=== PATIENT | female | born 1955 | race Caucasian/White ===

== ENCOUNTER 2020-06-03 09:19 | Outpatient (RCR) | payer MEDICARE, BC, MEDICAID, SELFPAY ==
[2020-06-03 09:28] VITALS: BP 133/70; PULSE 73; TEMP 36.1; BMI 44.6
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
== END 2020-06-12 23:59 ==
LOC: WC 09:19
PROVIDERS: PCP Internal Medicine; Visit Provider Nurse Practitioner
DX: L89.154 Pressure ulcer of sacral region, stage 4 (principal); E66.01 Morbid (severe) obesity due to excess calories; L03.319 Cellulitis of trunk, unspecified; S41.102A Unspecified open wound of left upper arm, initial encounter; T14.8XXA Other injury of unspecified body region, initial encounter; Z68.44 Body mass index [BMI] 60.0-69.9, adult; Z79.84 Long term (current) use of oral hypoglycemic drugs; Z79.899 Other long term (current) drug therapy
CPT/HCPCS: 11042; 99203; G0463

== ENCOUNTER 2020-06-15 07:50 | Outpatient (RCR) | payer MEDICARE, MEDICAID, SELFPAY ==
[2020-06-13 00:54] VITALS: BP 133/70; PULSE 73; TEMP 36.1
== END 2020-07-13 23:59 ==
LOC: WC 07:50
PROVIDERS: PCP Internal Medicine; Visit Provider Nurse Practitioner
DX: Z00.00 Encounter for general adult medical examination without abnormal findings (principal)

== ENCOUNTER 2020-09-02 10:30 | Outpatient (RCR) | payer MEDICARE, BC, MEDICAID, SELFPAY ==
[2020-07-14 00:34] VITALS: BP 133/70; PULSE 73; TEMP 36.1
[2020-07-20 10:47] VITALS: BP 146/54; PULSE 69; TEMP 36.2; BMI 44.6
--- NOTE | 2020-07-20 15:47 | HP.PCM_ITS ---
History of Present Illness Date of Service: 07/20/20 Chief Complaint: WOUND CENTER CONSULT Right sacral pressure sore, Stage IV. REFERRING PROVIDER: Bel Deal NP. STRESS ANALYST: Dr. Miller. History of Wound: 65-year-old white obese nonambulatory female with a history of diabetes mellitus came to the W[facility] Center because of a right sacral pressure sore. She developed the pressure sore when she fell last year and was not found for almost 20 hours. She had laid on her back and her legs were caught underneath her body. She developed a gangrene left heel that is now healed but has not walked since. Has developed neuropathies and drop foot. Wound care is with Hydrofera Blue. This is keeping the pressure sore clean and no odor. Today she denies fever. Her appetite is ok. Encourage nutritional supplementation with protein to help the healing process. I was asked to evaluate this patient for surgical options for treatment. Progress of Wound: Slight improvement. [facility] Medical History Diabetes Home Medications Lactobacillus acidophilus 1 capsule PO BID 06/03/20 [History Last Taken Unknown] acetaminophen 650 mg PO Q4H PRN PRN 06/03/20 [History Last Taken Unknown] ascorbic acid (vitamin C) 500 mg PO BID 06/03/20 [History Last Taken Unknown] byndqgn-tlcwolrdfkpzy-myyakksw 2 tablet PO BID PRN 06/03/20 [History Last Taken Unknown] atenolol 50 mg PO DAILY 06/03/20 [History Last Taken Unknown] atorvastatin 40 mg PO DAILY 06/03/20 [History Last Taken Unknown] bisacodyl 10 mg RECTAL DAILY PRN PRN 06/03/20 [History Last Taken Unknown] cyclobenzaprine 5 mg PO DAILY 06/03/20 [History Last Taken Unknown] diphenhydramine HCl 25 mg PO Q6H PRN 06/03/20 [History Last Taken Unknown] docusate sodium 100 mg PO DAILY 06/03/20 [History Last Taken Unknown] ergocalciferol (vitamin D2) 50,000 unit PO FR 06/03/20 [History Last Taken Unknown] famotidine 20 mg PO BID 06/03/20 [History Last Taken Unknown] ferrous sulfate 325 mg PO BIDCM 06/03/20 [History Last Taken Unknown] furosemide 40 mg PO DAILY 06/03/20 [History Last Taken Unknown] gabapentin 600 mg PO TID 06/03/20 [History Last Taken Unknown] loperamide 2 mg PO DAILY PRN 06/03/20 [History Last Taken Unknown] magnesium hydroxide 30 ml PO DAILY PRN PRN 06/03/20 [History Last Taken Unknown] meclizine 25 mg PO Q12H PRN 06/03/20 [History Last Taken Unknown] metformin 500 mg PO DAILY 06/03/20 [History Last Taken Unknown] ondansetron 4 mg PO Q8H PRN PRN 06/03/20 [History Last Taken Unknown] oxycodone 5 mg PO Q6H PRN PRN 06/03/20 [History Last Taken Unknown] polyethylene glycol 3350 17 gm PO DAILY 06/03/20 [History Last Taken Unknown] potassium chloride 20 meq PO TID 06/03/20 [History Last Taken Unknown] sertraline 150 mg PO DAILY 06/03/20 [History Last Taken Unknown] Allergy/AdvReac Type Severity Reaction Status Date / Time doxycycline Allergy PT UNSURE Verified 06/03/20 10:08 OF REACTION ROS ROS Narrative Constitutional: Denies: Chills, Fever Eyes: Denies: Blurred vision, Drainage, Pain HEENT: Denies: Difficulty Hearing, Difficulty Swallowing, Sore Throat, Visual Changes Cardiovascular: Denies: Chest Pain, Palpitations, Syncope Respiratory: Denies: Cough, Shortness of Breath Gastrointestinal: Denies: Abdominal Pain, Nausea, Vomiting Genitourinary: Denies: Dysuria, Frequency Musculoskeletal: Denies: Joint Pain, Muscle pain Skin: Reports: Wounds. Denies: Jaundice, Rash Neurological: Denies: Balance problems, Change in Speech, Difficulty swallowing, Focal weakness Psychiatric: Denies: Anxiety, Depression Endocrine: Denies: Change in Body Habitus Hematologic/ Lymphatic: Denies: Adenopathy Vital Signs Vital Signs Vital Signs: 07/20/20 10:47 Temperature 97.2 F L Temperature Source Temporal Pulse Rate 69 Blood Pressure 146/54 H Blood Pressure Mean 84 Blood Pressure Source Monitor Blood Pressure Position Semi-Fowlers Blood Pressure Location Right Arm Weight Weight: 281 lb Body Mass Index (BMI) 44.6 Physical Exam Narrative General: Oriented x3, Cooperative. HEENT: PERRLA, EOMI. Oral: Moist Mucosa Neck: Supple, Nontender. No cervical adenopathy. Lungs: Clear to auscultation. Cardiovascular: Regular rate, Regular Rhythm. Abdomen: Soft, Nondistended. Extremities: No clubbing, No edema. Skin: There is a right sacral pressure sore extending into the muscle, making it a Stage IV. No exposed bone is seen. Some granulation tissue is seen. No purulent drainage. Lymphatic: No Cervical, axillary, or Inguinal Adenopathy Neurological: Cranial nerves II-XII grossly intact. Psych/Mental Status: Normal Affect, Appropriate. Debridement Note Debridement Note Post-Debridement Measurements and Additional Note: Post-Debridement Measurements/Treatment - Nurse 1 - General Ulcer Assessment Start: 07/20/20 10:47 Freq: Status: Active Protocol: GERARDO Activity Type Activity Date Activity User E-Sign Co-Sign Detail Recorded Client Recorded Date Recorded By Document 07/20/20 10:47 CHALO [id number] 07/20/20 10:49 CHALO 07/20/20 10:47 - Today's Visit Information Type of service Follow-up Visit (Physician/JOURNEYMAN MACHINIST ) Arrival Mode Stretcher Transfer Assistance Manual Patient Identification Verified (Name & Yes ) Height and Weight Body Mass Index (BMI) 44.6 BMI Classification Obese Vital Signs Temperature (97.8 F-99.1 F) 97.2 F L Temperature Source Temporal Pulse Rate (60-100) 69 Pulse Location Monitor Blood Pressure (90/60-120/80) 146/54 H Blood Pressure Mean 84 Source Monitor Position Semi-Fowlers Blood Pressure Location Right Arm History Since Last Visit- (Skip if this is Patient's initial visit) Have you changed medications since your No last visit? Any new allergies or adverse reactions No Had a fall/change in ADL's that may No increase risk of falls Signs or symptoms of abuse and/or No neglect since last visit Have you been in the hospital since your No last visit? Has dressing in place as prescribed Yes Has compression in place as prescribed N/A Has offloadiing in place as prescribed N/A Experienced any changes in pain level or No management Left Footwear Regular Shoe Right Footwear Regular Shoe Pain Scale: 0-10 Numeric Is Patient Pain Free? Yes - Nurse 1 - General Ulcer Measurement Start: 07/20/20 10:47 Freq: Status: Active Protocol: Activity Type Activity Date Activity User E-Sign Co-Sign Detail Recorded Client Recorded Date Recorded By Document 07/20/20 10:47 CHALO [id number] 07/20/20 10:49 CHALO 07/20/20 10:47 Wound Center Nurse 1 #1 Right Buttock/Sacral -Current Size (cm) - Length 4.5 -Current Size (cm) - Width 8.2 -Current Size (cm) - Depth 4.7 -Total Square Cm 36.90 -Exudate Amt Medium -Exudate Type Serosanguineous -Wound Margin Distinct, Outline Attached -Granulation Amt Medium (34-66%) -Granulation Quality Red -Necrosis Amt Medium (34-66%) -Necrotic Tissue Type Adherent Slough -Texture ([place]-wound Skin Appearance) Assessed, Scarring -Moisture ([place]-wound Skin Appearance) No Abnormality, Assessed -Color ([place]-wound Skin Appearance) No Abnormality, Assessed -Temperature ([place]-wound Skin No Abnormality Appearance) (Pt Warm) -Tenderness on Palpation ([place]-wound No Skin Appearance) -Ulcer Cleansing Rinsed/ Irrigated with Saline -Foul Odor after Cleansing No -Anesthetic Used 4% Lidocaine Solution WC - Nurse 2 - General Ulcer CM Notes Start: 07/20/20 10:47 Freq: Status: Active Protocol: Activity Type Activity Date Activity User E-Sign Co-Sign Detail Recorded Client Recorded Date Recorded By Document 07/20/20 11:25 EHSAN [id number] 07/20/20 11:28 EHSAN 07/20/20 11:25 Wound Center Nurse 2 #3 mid abd -Correct Patient No -Correct Side, Site, Position No -Correct Procedure No -Procedure Performed No #2 LEFT ANTECUBITAL -Correct Patient No -Correct Side, Site, Position No -Correct Procedure No -Procedure Performed No #1 Right Buttock/Sacral -Time 11:26 -Correct Patient Yes -Correct Side, Site, Position Yes -Correct Procedure Yes -Procedure Performed Yes -Type of Procedure Debridement -Clinical Debridement Muscle / Fascia -Tissue Removed Muscle,Fascia -Post Debridement (cm) - Length 4.5 -Post Debridement (cm) - Width 8.3 -Post Debridement (cm) - Depth 4.8 -Total Square (Post) (cm) 37.35 -Area of Debridement (cm) - Length 4.5 -Area of Debridement (cm) - Width 8.3 -Total Square (Area) (cm) 37.35 -Tunneling No -Undermining/Tunneling No -Circular Undermining No -Wound/Ulcer Outcome Not Healed -Ulcer Cleansing Rinsed/ Irrigated with Saline -Foul Odor after Cleansing No -Bioengineered Tissue No -Bleeding Controlled with Pressure -Offloading No -Treatment Response Procedure Tolerated Well -Debridement - Muscle / Fascia, 1st Yes 20sq cm -Debridement, Muscle/Fascia, ea addt'l 1 20sq cm or part thereof Pain Scale: 0-10 Numeric Is Patient Pain Free? Yes WC - Nurse 3 - General Ulcer D/C NN Start: 07/20/20 10:47 Freq: Status: Active Protocol: Activity Type Activity Date Activity User E-Sign Co-Sign Detail Recorded Client Recorded Date Recorded By Document 07/20/20 11:55 [facility] [id number] 07/20/20 11:57 [facility] 07/20/20 11:55 Wound Care Nurse 3 #1 Right Buttock/Sacral -Ulcer Cleansing Rinsed/ Irrigated with Saline -Foul Odor after Cleansing No -Primary Dressing Applied Other -Other Dressing moist to dry -Primary Dressing Covered/Secured with Secured with Tape,Other -Other Covering abd Treatment Response Procedure Tolerated Well Pain Scale: 0-10 Numeric Is Patient Pain Free? Yes WC - Visit Discharge Discharge Condition Stable Ambulatory Status Stretcher Transportation Amb[facility] Facility [facility] Wound debrided: #1 Right sacral area. Laterality: Right Wound Grade/Stage: IV. Type of Debridement: Excisional debridement Anesthesia Used: 4% Lidocaine Solution Depth: Down to and including healthy tissue, in the subcutaneous layer and to muscle Percentage of wound debrided: 100 Instrument Used: 7mm curette Tissue Removed: subcutaneous tissue and muscle. Severity: Fat Layer Exposed (muscle is exposed.) Amount of bleeding with debridement: Mild Bleeding Controlled with: Pressure and Compression and gauze Patient tolerated procedure: Patient tolerated procedure well Charges/Coding Visit Charges Office Visits / Consults: 10157 OV L5 New (-25 Modifier ICD-10 - L89.154, E11.9, E66.01) Procedures Integumentary [id number]: [id number] Liz musc/fascia 20 sq cm/< (ICD-10 - L89.154, E11.9, E66.01) Add On Codes: 27322 Liz musc/fascia add-on (ICD-10 - L89.154, E11.9, E66.01) Assessment/Plan Assessment/Plan (1) Sacral decubitus ulcer, stage IV: CODE(S): L89.154 - Pressure ulcer of sacral region, stage 4 (2) Morbid obesity with BMI of 60.0-69.9, adult: CODE(S): E66.01 - Morbid (severe) obesity due to excess calories; Z68.44 - Body mass index [BMI] 60.0-69.9, adult (3) Diabetes: CODE(S): E11.9 - Type 2 diabetes mellitus without complications PLAN: Begin Dakin's dressing changes daily. Recommend operative intervention with excision of the right sacral pressure sore at least into the muscle. If there is tracking down to bone then a partial ostectomy for osteomyelitis would be done. If there is stool contamination during the healing process, then a General Surgery evaluation would be needed for a diverting colostomy. Anticipate increased metabolic demands from the pressure sore. Encourage nutritional supplementation with protein to help the healing process. Will check a Prealbumin at the time of surgery. Surgery will be done under general anesthesia with a surgical observation overnight stay in the hospital. Postoperatively a VAC will be placed. Soft tissue will be sent to Pathology and Microbiology for culture. A positive culture will necessitate antibiotic therapy. If bone is involved and a partial ostectomy is done, then would send to Pathology to evaluate for osteomyelitis and to Microbiology for culture. Also at the time of surgery, a HgbA1c will be checked. Before wound closure can be done with myocutaneous flaps, the HgbA1c needs to be less than 8. Also at the time of the myocutaneous flap, the infection needs to be treated and the nutrition needs to be maximized. After a myocutaneous flap, the patient will need to be on complete bedrest for 6 weeks. Prior to surgery, a CT Pelvis needs to be done to evaluate for osteomyelitis. A wound culture was obtained today. A positive culture will necessitate antibiotic therapy. At the [facility], a specialty bed is needed such as a low air loss bed to minimize pressure issues. Frequent turning is also necessary. Patient was informed of the risks and complications of the procedure including alternatives to surgery. These were discussed with the patient personally. Patient voices understanding and wishes to proceed. Followup Wound Center 2 weeks.
[2020-08-12 10:59] VITALS: BP 144/60; PULSE 74; RESP 16; BMI 44.6
--- NOTE | 2020-08-12 12:10 | CT_ITS ---
STUDY: CT PELVIS WITHOUT CONTRAST REASON FOR EXAM: Female, 65 years old. Pressure ulcer of sacral region, stage 4 RADIATION DOSAGE (If Supplied By Facility): CTDIvol = ( 37.90 ) mGy, DLP = ( 1628.34 ) mGycm TECHNIQUE: Transaxial imaging of the pelvis was performed without oral contrast, and without intravenous administration of contrast material. Individualized dose optimization techniques were used for this CT. COMPARISON: None. FINDINGS: Normal urinary bladder. Normal visualized small intestine. Large amount of stool within the colon suggestive of constipation. There is no pelvic fluid. There is no pelvic mass lesion or lymphadenopathy. Normal visualized pelvic arteries. There is a 4 x 5 cm sacral decubitus ulcer superficial to the right sacral ala and the right sacroiliac joint. There is subtle cortical destruction of the posterior aspect of the right sacral ala consistent with osteomyelitis. CT/Pelvis without IV Contrast IMPRESSION: 4 x 5 cm sacral decubitus ulcer with osteomyelitis of the right sacral ala. Electronically Signed: Po Brown MD at 14:44 EDT Tel , Service support ,
--- NOTE | 2020-08-12 12:42 | PN.PCM_ITS ---
History of Present Illness Date of Service: 08/12/20 Chief Complaint: WOUND CENTER CONSULT Right sacral pressure sore, Stage IV. REFERRING PROVIDER: Bel Deal NP. SURGEON PARTNER: Dr. Miller. History of Wound: 65-year-old white obese nonambulatory female with a history of diabetes mellitus came to the Wound Center because of a right sacral pressure sore. She developed the pressure sore when she fell last year and was not found for almost 20 hours. She had laid on her back and her legs were caught underneath her body. She developed a gangrene left heel that is now healed but has not walked since. Has developed neuropathies and drop foot. Wound care is with Hydrofera Blue. This is keeping the pressure sore clean and no odor. Today she denies fever. Her appetite is ok. Encourage nutritional supplementation with protein to help the healing process. I was asked to evaluate this patient for surgical options for treatment. Progress of Wound: Slight improvement. Have not seen wound since June 2020. Patient is to have CT this afternoon and will be scheduling with Dr. Albarran debridement surgery. Today here for examination and debridement of the wound. Wound is slightly smaller looks good clean does have a very bad odor. Patient is currently on Augmentin being treated by his office. Subjective Subjective Patient was concerned why she was here since she is only can have a CT and have surgery Objective Data Objective Data Discussed with patient that the whole reason for coming here was for continued looking at the wound and making sure there is nothing wrong before she can have surgery debridement and measurements were retaken patient is to continue on same treatment. Vital Signs: Vital Signs Temp Pulse Resp BP 97.2 F L 74 16 144/60 H 07/20/20 10:47 08/12/20 10:59 08/12/20 10:59 08/12/20 10:59 Oxygen Delivery Method Room Air Weight: 281 lb Body Mass Index (BMI) 44.6 Lab / Micro Data Micro: Microbiology 07/20/20 Unknown Wound - Buttock Gram Stain - Final 07/20/20 Unknown Wound - Buttock Wound Culture - Final Streptococcus agalactiae (B) Corynebacterium striatum Staphylococcus capitis 07/20/20 Unknown Wound - Buttock Anaerobic Culture - Final Anaerobic cocci Bacteroides fragilis group Physical Exam Const oriented x3 General Appearance: cooperative Exam Limitations: no limitations Resp normal respiratory effort Effort and Inspection: able to speak in complete sentences Auscultation: clear to auscultation bilaterally Cardio regular rate and regular rhythm Palpation: normal PMI Rate: regular rate Rhythm: regular rhythm Back/Spine Cervical Spine: cervical ROM normal Thoracic Spine / Upper Back: normal to inspection Lumbar Spine / Lower Back: normal to inspection Skin no rashes or lesions noted Neuro oriented x3 Psych Appearance: grossly normal Speech: normal speech Thought Content: normal thought content Judgement: judgement good Debridement Note Debridement Note Post-Debridement Measurements and Additional Note: Post-Debridement Measurements/Treatment - Nurse 1 - General Ulcer Assessment Start: 07/20/20 10:47 Freq: Status: Active Protocol: [employer] Activity Type Activity Date Activity User E-Sign Co-Sign Detail Recorded Client Recorded Date Recorded By Document 07/20/20 10:47 CHALO [id number] 07/20/20 10:49 KR Document 08/12/20 10:59 [facility] [id number] 08/12/20 11:05 [facility] 07/20/20 08/12/20 10:47 10:59 - Today's Visit Information Type of service Follow-up Visit Follow-up Visit (Physician/EMAIL MANAGER (Physician/EMAIL MANAGER ) ) Arrival Mode Stretcher Stretcher Transfer Assistance Manual Manual Transfer Assist (Other) 5 assist Patient Identification Verified (Name & Yes Yes ) Patient Requires Transmission-Based No Precautions Height and Weight Body Mass Index (BMI) 44.6 44.6 BMI Classification Obese Obese Vital Signs Temperature (97.8 F-99.1 F) 97.2 F L Temperature Source Temporal Pulse Rate (60-100) 69 74 Pulse Location Monitor Monitor Respiratory Rate (12-18) 16 Respiratory rate source Observation Oxygen Delivery Method Room Air Blood Pressure (90/60-120/80) 146/54 H 144/60 H Blood Pressure Mean (mm Hg) 84 88 Source Monitor Monitor Position Semi-Fowlers Supine Blood Pressure Location Right Arm History Since Last Visit- (Skip if this is Patient's initial visit) Have you changed medications since your No last visit? Any new allergies or adverse reactions No Had a fall/change in ADL's that may No increase risk of falls Signs or symptoms of abuse and/or No neglect since last visit Have you been in the hospital since your No last visit? Has dressing in place as prescribed Yes Has compression in place as prescribed N/A Has offloadiing in place as prescribed N/A Experienced any changes in pain level or No management Left Footwear Regular Shoe Right Footwear Regular Shoe Pain Scale: 0-10 Numeric Is Patient Pain Free? Yes Yes WC - Nurse 1 - General Ulcer Measurement Start: 07/20/20 10:47 Freq: Status: Active Protocol: Activity Type Activity Date Activity User E-Sign Co-Sign Detail Recorded Client Recorded Date Recorded By Document 07/20/20 10:47 KR [id number] 07/20/20 10:49 KR Document 08/12/20 10:59 [facility] [id number] 08/12/20 11:05 [facility] 07/20/20 08/12/20 10:47 10:59 Wound Center Nurse 1 #3 mid abd -Combined with other wound No -Current Size (cm) - Length 0.1 -Current Size (cm) - Width 0.1 -Current Size (cm) - Depth 0.1 -Total Square Cm 0.01 -Epithelialization Large 67-100% #1 Right Buttock/Sacral -Combined with other wound No -Current Size (cm) - Length 4.5 3 -Current Size (cm) - Width 8.2 9.6 -Current Size (cm) - Depth 4.7 3.7 -Total Square Cm 36.90 28.8 -Photo Taken No -Epithelialization None Present -Tunneling No -Undermining/Tunneling Yes -Undermining/Tunneling Starts (O'clock 12 ) -Undermining/Tunneling Ends (O'clock) 7 -Maximum Distance (cm) 4 -Circular Undermining No -Exudate Amt Medium Large -Exudate Type Serosanguineous Serosanguineous -Wound Margin Distinct, Distinct, Outline Outline Attached Attached -Granulation Amt Medium (34-66%) Large (67-100%) -Granulation Quality Red Red -Necrosis Amt Medium (34-66%) Small (1-33%) -Necrotic Tissue Type Adherent Slough Adherent Slough -Texture (Gaviota-wound Skin Appearance) Assessed, Assessed, Scarring Scarring -Moisture (Gaviota-wound Skin Appearance) No Abnormality, Assessed Assessed -Color (Gaviota-wound Skin Appearance) No Abnormality, Assessed Assessed -Temperature (Gaviota-wound Skin No Abnormality No Abnormality Appearance) (Pt Warm) (Pt Warm) -Tenderness on Palpation (Gaviota-wound No No Skin Appearance) -Ulcer Cleansing Rinsed/ Rinsed/ Irrigated with Irrigated with Saline Saline -Foul Odor after Cleansing No No -Anesthetic Used 4% Lidocaine 4% Lidocaine Solution Solution WC - Nurse 2 - General Ulcer CM Notes Start: 07/20/20 10:47 Freq: Status: Active Protocol: Activity Type Activity Date Activity User E-Sign Co-Sign Detail Recorded Client Recorded Date Recorded By Document 07/20/20 11:25 [id number] 07/20/20 11:28 07/20/20 11:25 Wound Center Nurse 2 #3 mid abd -Correct Patient No -Correct Side, Site, Position No -Correct Procedure No -Procedure Performed No #2 LEFT ANTECUBITAL -Correct Patient No -Correct Side, Site, Position No -Correct Procedure No -Procedure Performed No #1 Right Buttock/Sacral -Time 11:26 -Correct Patient Yes -Correct Side, Site, Position Yes -Correct Procedure Yes -Procedure Performed Yes -Type of Procedure Debridement -Clinical Debridement Muscle / Fascia -Tissue Removed Muscle,Fascia -Post Debridement (cm) - Length 4.5 -Post Debridement (cm) - Width 8.3 -Post Debridement (cm) - Depth 4.8 -Total Square (Post) (cm) 37.35 -Area of Debridement (cm) - Length 4.5 -Area of Debridement (cm) - Width 8.3 -Total Square (Area) (cm) 37.35 -Tunneling No -Undermining/Tunneling No -Circular Undermining No -Wound/Ulcer Outcome Not Healed -Ulcer Cleansing Rinsed/ Irrigated with Saline -Foul Odor after Cleansing No -Bioengineered Tissue No -Bleeding Controlled with Pressure -Offloading No -Treatment Response Procedure Tolerated Well -Debridement - Muscle / Fascia, 1st Yes 20sq cm -Debridement, Muscle/Fascia, ea addt'l 1 20sq cm or part thereof Pain Scale: 0-10 Numeric Is Patient Pain Free? Yes WC - Nurse 3 - General Ulcer D/C NN Start: 07/20/20 10:47 Freq: Status: Active Protocol: Activity Type Activity Date Activity User E-Sign Co-Sign Detail Recorded Client Recorded Date Recorded By Document 07/20/20 11:55 BM [id number] 07/20/20 11:57 [facility] Document 08/12/20 11:42 KR [id number] 08/12/20 11:43 KR 07/20/20 08/12/20 11:55 11:42 Wound Care Nurse 3 #1 Right Buttock/Sacral -Ulcer Cleansing Rinsed/ Irrigated with Saline -Foul Odor after Cleansing No -Primary Dressing Applied Other -Other Dressing moist to dry -Primary Dressing Covered/Secured with Secured with Dry Gauze, Tape,Other Secured with Tape -Other Covering abd wet to dry dressing Treatment Response Procedure Tolerated Well Pain Scale: 0-10 Numeric Is Patient Pain Free? Yes Yes WC - Visit Discharge Discharge Condition Stable Stable Ambulatory Status Stretcher Stretcher Transportation Ambulance Ambulance Facility Type Supervisory Examiner Care Facility Wound debrided: Right sacral decubitus ulcer Wound Grade/Stage: Stage IV Type of Debridement: Excisional debridement Anesthesia Used: 5% Lidocaine Gel Depth: Down to and including healthy tissue, in the subcutaneous layer, to muscle and to bone Percentage of wound debrided: 100 Instrument Used: 7mm curette Tissue Removed: Fibrin Severity: Fat Layer Exposed Amount of bleeding with debridement: Mild Bleeding Controlled with: Pressure Patient tolerated procedure: Patient tolerated procedure well Assessment/Plan Assessment/Plan (1) Morbid obesity with BMI of 60.0-69.9, adult: CODE(S): E66.01 - Morbid (severe) obesity due to excess calories; Z68.44 - Body mass index [BMI] 60.0-69.9, adult (2) Sacral decubitus ulcer, stage IV: CODE(S): L89.154 - Pressure ulcer of sacral region, stage 4 PLAN: Continue packing with gauze soaked in Dakin's solution followed with coverage on ABD and super absorbent pad daily and as needed Follow-up for CT scan this afternoon at 1 PM in the hospital Dr. Albarran's office will then call you for further instructions
[2020-09-02 10:36] VITALS: BMI 44.6
--- NOTE | 2020-09-02 11:48 | PCM.WC.PN ---
History of Present Illness Date of Service: 09/02/20 Chief Complaint: WOUND CENTER CONSULT Right sacral pressure sore, Stage IV. REFERRING PROVIDER: Bel Deal NP. MILK HANDLER: Dr. Miller. History of Wound: 65-year-old white obese nonambulatory female with a history of diabetes mellitus came to the Wound Center because of a right sacral pressure sore. She developed the pressure sore when she fell last year and was not found for almost 20 hours. She had laid on her back and her legs were caught underneath her body. She developed a gangrene left heel that is now healed but has not walked since. Has developed neuropathies and drop foot. Wound care is with Hydrofera Blue. This is keeping the pressure sore clean and no odor. Today she denies fever. Her appetite is ok. Encourage nutritional supplementation with protein to help the healing process. I was asked to evaluate this patient for surgical options for treatment. Progress of Wound: Slight improvement. Have not seen wound since August 12 2020. Patient is to have CT this afternoon and will be scheduling with Dr. Wells debridement surgery. Today here for examination and debridement of the wound. Wound is slightly smaller looks good clean . Patient is currently on Augmentin being treated by his office. Patient has finished her Augmentin CT shows osteomyelitis referring her to infectious disease. We will continue the Dakin's wet-to-dry dressings daily debrided for fibrin only. No odor noted Subjective Subjective Patient is anxious to get surgery done and find out what is going on. Objective Data Objective Data As previously stated wound is about the same clean no odor CT shows osteomyelitis I&D infectious disease consult SHERWIN I will see her till she can be scheduled for surgery. Patient will continue using the Dakin's wet-to-dry. Patient states had a CT scan done in April at [facility] and the CT shows no osteomyelitis. We will try to get those records Vital Signs: Vital Signs Temp Pulse Resp BP 97.2 F L 74 16 144/60 H 07/20/20 10:47 08/12/20 10:59 08/12/20 10:59 08/12/20 10:59 Oxygen Delivery Method Room Air Weight: 281 lb Body Mass Index (BMI) 44.6 Lab / Micro Data Micro: Microbiology 07/20/20 Unknown Wound - Buttock Gram Stain - Final 07/20/20 Unknown Wound - Buttock Wound Culture - Final Streptococcus agalactiae (B) Corynebacterium striatum Staphylococcus capitis 07/20/20 Unknown Wound - Buttock Anaerobic Culture - Final Anaerobic cocci Bacteroides fragilis group Patient was treated with Flagyl and has finished but still waiting for infectious disease because the other bacteria were resistant to most antibiotics Radiography Diagnostic Testing: CT pelvis and abdomen positive for osteomyelitis sacrum Physical Exam Const oriented x3 General Appearance: cooperative Exam Limitations: no limitations Resp normal respiratory effort Effort and Inspection: able to speak in complete sentences Auscultation: clear to auscultation bilaterally Cardio regular rate and regular rhythm Palpation: normal PMI Rate: regular rate Rhythm: regular rhythm Back/Spine Cervical Spine: cervical ROM normal Thoracic Spine / Upper Back: normal to inspection Lumbar Spine / Lower Back: normal to inspection Skin no rashes or lesions noted Neuro oriented x3 Psych Appearance: grossly normal Speech: normal speech Thought Content: normal thought content Judgement: judgement good Debridement Note Debridement Note Post-Debridement Measurements and Additional Note: Post-Debridement Measurements/Treatment - Nurse 1 - General Ulcer Assessment Start: 07/20/20 10:47 Freq: Status: Active Protocol: [email or web address] Activity Type Activity Date Activity User E-Sign Co-Sign Detail Recorded Client Recorded Date Recorded By Document 07/20/20 10:47 [id number] 07/20/20 10:49 KR Document 08/12/20 10:59 [facility] [id number] 08/12/20 11:05 [facility] Document 09/02/20 10:36 ML [id number] 09/02/20 10:41 ML 07/20/20 08/12/20 09/02/20 10:47 10:59 10:36 - Today's Visit Information Type of service Follow-up Visit Follow-up Visit Follow-up Visit (Physician/SPECIAL NEEDS BABYSITTER (Physician/SPECIAL NEEDS BABYSITTER (Physician/SPECIAL NEEDS BABYSITTER ) ) ) Arrival Mode Stretcher Stretcher Stretcher Transfer Assistance Manual Manual Manual Transfer Assist (Other) 5 assist Patient Identification Verified (Name & Yes Yes Yes ) Patient Requires Transmission-Based No No Precautions Safety Precautions NA Weight Measurement Method Standing Scale Height and Weight Body Mass Index (BMI) 44.6 44.6 44.6 BMI Classification Obese Obese Obese Vital Signs Temperature (97.8 F-99.1 F) 97.2 F L Temperature Source Temporal Pulse Rate (60-100) 69 74 Pulse Location Monitor Monitor Respiratory Rate (12-18) 16 Respiratory rate source Observation Oxygen Delivery Method Room Air Blood Pressure (90/60-120/80) 146/54 H 144/60 H Blood Pressure Mean (mm Hg) 84 88 Source Monitor Monitor Position Semi-Fowlers Supine Blood Pressure Location Right Arm History Since Last Visit- (Skip if this is Patient's initial visit) Have you changed medications since your No No last visit? Any new allergies or adverse reactions No No Had a fall/change in ADL's that may No No increase risk of falls Signs or symptoms of abuse and/or No No neglect since last visit Have you been in the hospital since your No No last visit? Has dressing in place as prescribed Yes Yes Has compression in place as prescribed N/A N/A Has offloadiing in place as prescribed N/A N/A Experienced any changes in pain level or No No management Left Footwear Regular Shoe No Footwear Right Footwear Regular Shoe No Footwear Pain Scale: 0-10 Numeric Is Patient Pain Free? Yes Yes Yes WC - Nurse 1 - General Ulcer Measurement Start: 07/20/20 10:47 Freq: Status: Active Protocol: Activity Type Activity Date Activity User E-Sign Co-Sign Detail Recorded Client Recorded Date Recorded By Document 07/20/20 10:47 KR [id number] 07/20/20 10:49 KR Document 08/12/20 10:59 [facility] [id number] 08/12/20 11:05 BM Document 09/02/20 10:36 ML [id number] 09/02/20 10:41 ML 07/20/20 08/12/20 09/02/20 10:47 10:59 10:36 Wound Center Nurse 1 #3 mid abd -Combined with other wound No -Current Size (cm) - Length 0.1 0.1 -Current Size (cm) - Width 0.1 0.1 -Current Size (cm) - Depth 0.1 0.1 -Total Square Cm 0.01 0.01 -Epithelialization Large 67-100% -Exudate Amt Large -Wound Margin Distinct, Outline Attached -Granulation Amt Large (67-100%) -Structure Exposed Bone -Moisture (Gaviota-wound Skin Appearance) Maceration -Color (Gaviota-wound Skin Appearance) Assessed -Temperature (Gaviota-wound Skin No Abnormality Appearance) (Pt Warm) -Tenderness on Palpation (Gaviota-wound No Skin Appearance) -Ulcer Cleansing Rinsed/ Irrigated with Saline -Anesthetic Used 5% Lidocaine Gel #1 Right Buttock/Sacral -Combined with other wound No -Current Size (cm) - Length 4.5 3 4 -Current Size (cm) - Width 8.2 9.6 7 -Current Size (cm) - Depth 4.7 3.7 5.5 -Total Square Cm 36.90 28.8 28 -Photo Taken No -Epithelialization None Present Large 67-100% -Tunneling No -Undermining/Tunneling Yes -Undermining/Tunneling Starts (O'clock 12 ) -Undermining/Tunneling Ends (O'clock) 7 -Maximum Distance (cm) 4 -Circular Undermining No -Exudate Amt Medium Large None Present -Exudate Type Serosanguineous Serosanguineous -Wound Margin Distinct, Distinct, Distinct, Outline Outline Outline Attached Attached Attached -Granulation Amt Medium (34-66%) Large (67-100%) Large (67-100%) -Granulation Quality Red Red Red -Necrosis Amt Medium (34-66%) Small (1-33%) Medium (34-66%) -Necrotic Tissue Type Adherent Slough Adherent Slough -Structure Exposed Bone -Texture (Gaviota-wound Skin Appearance) Assessed, Assessed, Assessed Scarring Scarring -Moisture (Gaviota-wound Skin Appearance) No Abnormality, Assessed Assessed Assessed -Color (Gaviota-wound Skin Appearance) No Abnormality, Assessed Assessed Assessed -Temperature (Gaviota-wound Skin No Abnormality No Abnormality No Abnormality Appearance) (Pt Warm) (Pt Warm) (Pt Warm) -Tenderness on Palpation (Gaviota-wound No No Skin Appearance) -Ulcer Cleansing Rinsed/ Rinsed/ Rinsed/ Irrigated with Irrigated with Irrigated with Saline Saline Saline -Foul Odor after Cleansing No No No -Anesthetic Used 4% Lidocaine 4% Lidocaine 5% Lidocaine Solution Solution Gel WC - Nurse 2 - General Ulcer CM Notes Start: 07/20/20 10:47 Freq: Status: Active Protocol: Activity Type Activity Date Activity User E-Sign Co-Sign Detail Recorded Client Recorded Date Recorded By Document 07/20/20 11:25 JF [id number] 07/20/20 11:28 JF Document 08/12/20 12:43 PL [id number] 08/12/20 12:44 PL Edit Result 08/12/20 12:43 PL (1) [id number] 08/13/20 06:50 PL Document 09/02/20 11:06 MW [id number] 09/02/20 11:09 MW (1) #1 Right Buttock/Sacral - Debridement, SubQ, ea addt'l 20sq cm => 2 or part thereof 07/20/20 08/12/20 09/02/20 11:25 12:43 11:06 Wound Center Nurse 2 #3 mid abd -Time 10:55 -Correct Patient No -Correct Side, Site, Position No -Correct Procedure No -Procedure Performed No -Wound/Ulcer Outcome Healed- Epithelialized #2 LEFT ANTECUBITAL -Correct Patient No -Correct Side, Site, Position No -Correct Procedure No -Procedure Performed No #1 Right Buttock/Sacral -Time 11:26 11:17 10:55 -Correct Patient Yes Yes Yes -Correct Side, Site, Position Yes Yes Yes -Correct Procedure Yes Yes Yes -Procedure Performed Yes Yes Yes -Type of Procedure Debridement Debridement Debridement -Clinical Debridement Muscle / Fascia Subcutaneous Subcutaneous -Tissue Removed Muscle,Fascia Subcutaneous Subcutaneous -Post Debridement (cm) - Length 4.5 3.0 4.5 -Post Debridement (cm) - Width 8.3 2.3 7.8 -Post Debridement (cm) - Depth 4.8 0.2 4.3 -Total Square (Post) (cm) 37.35 6.90 35.10 -Area of Debridement (cm) - Length 4.5 3.0 4.5 -Area of Debridement (cm) - Width 8.3 2.3 7.8 -Total Square (Area) (cm) 37.35 6.90 35.10 -Tunneling No Yes Yes -Tunneling Position (O'clock) 12 12 -Tunneling Distance (cm) 3.5 4.0 -Undermining/Tunneling No No No -Circular Undermining No No No -Wound/Ulcer Outcome Not Healed Not Healed Not Healed -Ulcer Cleansing Rinsed/ Rinsed/ Rinsed/ Irrigated with Irrigated with Irrigated with Saline Saline Saline -Foul Odor after Cleansing No No No -Bioengineered Tissue No No No -Bleeding Controlled with Pressure Pressure Pressure -Offloading No No -Treatment Response Procedure Procedure Procedure Tolerated Well Tolerated Well Tolerated Well -Debridement - Subq, 1st 20sq cm Yes Yes -Debridement, SubQ, ea addt'l 20sq cm 2 1 or part thereof -Debridement - Muscle / Fascia, 1st Yes 20sq cm -Debridement, Muscle/Fascia, ea addt'l 1 20sq cm or part thereof Pain Scale: 0-10 Numeric Is Patient Pain Free? Yes Yes Yes - Nurse 3 - General Ulcer D/C NN Start: 07/20/20 10:47 Freq: Status: Active Protocol: Activity Type Activity Date Activity User E-Sign Co-Sign Detail Recorded Client Recorded Date Recorded By Document 07/20/20 11:55 [facility] [id number] 07/20/20 11:57 BM Document 08/12/20 11:42 KR [id number] 08/12/20 11:43 KR Document 09/02/20 11:00 ML [id number] 09/02/20 11:01 ML 07/20/20 08/12/20 09/02/20 11:55 11:42 11:00 Wound Care Nurse 3 #1 Right Buttock/Sacral -Ulcer Cleansing Rinsed/ Rinsed/ Irrigated with Irrigated with Saline Saline -Foul Odor after Cleansing No No -Primary Dressing Applied Other -Other Dressing moist to dry wet to dry -Primary Dressing Covered/Secured with Secured with Dry Gauze, Dry Gauze & Tape,Other Secured with Roll Gauze, Tape Secured with Tape -Other Covering abd wet to dry dressing Treatment Response Procedure Tolerated Well Pain Scale: 0-10 Numeric Is Patient Pain Free? Yes Yes - Visit Discharge Discharge Condition Stable Stable Stable Ambulatory Status Stretcher Stretcher Stretcher Transportation Ambulance Ambulance Ambulance Medication Reconcilliation completed & No provided to patient/care provider Clinical Summary of Care Provided Yes Facility Type Associate Team Physician Care Facility Wound debrided: Decubitus ulcer stage IV buttocks to sacrum Wound Grade/Stage: Stage IV Type of Debridement: Excisional debridement Anesthesia Used: 5% Lidocaine Gel Depth: in the subcutaneous layer, to muscle and to bone Instrument Used: 7mm curette Tissue Removed: Fibrin Severity: Necrosis of Bone Amount of bleeding with debridement: Mild Bleeding Controlled with: Pressure Patient tolerated procedure: Patient tolerated procedure well Assessment/Plan Assessment/Plan (1) Diabetes: CODE(S): E11.9 - Type 2 diabetes mellitus without complications QUALIFIERS: Diabetes mellitus type: due to underlying condition Diabetes mellitus intermediate insulin use: without intermediate use Diabetes mellitus complication status: with circulatory complication Diabetes mellitus complication detail: with other circulatory complications Qualified Code(s): E08.59 - Diabetes mellitus due to underlying condition with other circulatory complications (2) Morbid obesity with BMI of 60.0-69.9, adult: CODE(S): E66.01 - Morbid (severe) obesity due to excess calories; Z68.44 - Body mass index [BMI] 60.0-69.9, adult (3) Sacral decubitus ulcer, stage IV: CODE(S): L89.154 - Pressure ulcer of sacral region, stage 4 PLAN: Continue packing with gauze soaked in Dakin's solution followed with coverage on ABD and super absorbent pad daily and as needed (4) Osteomyelitis: CODE(S): M86.9 - Osteomyelitis, unspecified QUALIFIERS: Osteomyelitis type: acute hematogenous Osteomyelitis location: other site Qualified Code(s): M86.08 - Acute hematogenous osteomyelitis, other sites PLAN: Refer to I&D for her osteomyelitis
== END 2020-09-02 23:59 ==
LOC: WC 10:30
PROVIDERS: PCP Internal Medicine; Referring Provider Surgery; Visit Provider Surgery
DX: E11.622 Type 2 diabetes mellitus with other skin ulcer (principal); L89.154 Pressure ulcer of sacral region, stage 4; M86.08 Acute hematogenous osteomyelitis, other sites; E66.01 Morbid (severe) obesity due to excess calories; Z68.41 Body mass index [BMI] 40.0-44.9, adult
CPT/HCPCS: 11042; 11043; 11045; 11046; 72192; 87070; 87075; 87077; 87186; 87205

== ENCOUNTER 2020-09-16 10:56 | Outpatient (RCR) | payer MEDICARE, BC, MEDICAID, SELFPAY ==
[2020-09-03 00:12] VITALS: BP 144/60; PULSE 74; RESP 16; TEMP 36.2
[2020-09-16 10:58] VITALS: BP 109/49; PULSE 64; RESP 18; TEMP 36.4; BMI 44.6
--- NOTE | 2020-09-16 12:03 | PN.PCM_ITS ---
History of Present Illness Date of Service: 09/16/20 Chief Complaint: WOUND CENTER CONSULT Right sacral pressure sore, Stage IV. REFERRING PROVIDER: Bel Deal NP. DIXONAC OPERATOR: Dr. Miller. History of Wound: 65-year-old white obese nonambulatory female with a history of diabetes mellitus came to the Wound Center because of a right sacral pressure sore. She developed the pressure sore when she fell last year and was not found for almost 20 hours. She had laid on her back and her legs were caught underneath her body. She developed a gangrene left heel that is now healed but has not walked since. Has developed neuropathies and drop foot. Wound care is with Hydrofera Blue. This is keeping the pressure sore clean and no odor. Today she denies fever. Her appetite is ok. Encourage nutritional supplementation with protein to help the healing process. I was asked to evaluate this patient for surgical options for treatment. Progress of Wound: CAT scan showed the patient has osteomyelitis and could not wait the extra week to be seen by infectious disease the director at her long-term start her PICC line and on vancomycin. Patient is still tolerant to the wet-to-dry Dakin's solution. Wound is the same somewhat smelly but clean no purulent discharge still has tunneling but is smaller. Patient was awaiting evaluation and surgery by Dr. Wells Subjective Subjective Patient in patient with infectious disease and when I had and had her own director start the vancomycin. I suggested she still see infectious disease on her appointed time in September Objective Data Objective Data Wound is slightly smaller still the same has an odor patient is on antibiotics and still tolerating the wet-to-dry Dakin's solution Vital Signs: Vital Signs Temp Pulse Resp BP 97.6 F L 64 18 109/49 L 09/16/20 10:58 09/16/20 10:58 09/16/20 10:58 09/16/20 10:58 Weight: 281 lb Body Mass Index (BMI) 44.6 Physical Exam Const oriented x3 General Appearance: cooperative Exam Limitations: no limitations Resp normal respiratory effort Effort and Inspection: able to speak in complete sentences Auscultation: clear to auscultation bilaterally Cardio regular rate and regular rhythm Palpation: normal PMI Rate: regular rate Rhythm: regular rhythm Back/Spine Cervical Spine: cervical ROM normal Thoracic Spine / Upper Back: normal to inspection Lumbar Spine / Lower Back: normal to inspection Skin no rashes or lesions noted Neuro oriented x3 Psych Appearance: grossly normal Speech: normal speech Thought Content: normal thought content Judgement: judgement good Debridement Note Debridement Note Post-Debridement Measurements and Additional Note: Post-Debridement Measurements/Treatment - Nurse 1 - General Ulcer Assessment Start: 09/16/20 10:58 Freq: Status: Active Protocol: LOWEXArpita Activity Type Activity Date Activity User E-Sign Co-Sign Detail Recorded Client Recorded Date Recorded By Document 09/16/20 10:58 IMNA [id number] 09/16/20 11:01 DC 09/16/20 10:58 - Today's Visit Information Type of service Follow-up Visit (Physician/ASSOCIATE PROFESSOR OF PATHOLOGY ) Arrival Mode Stretcher Transfer Assistance Manual Patient Identification Verified (Name & Yes ) Patient Requires Transmission-Based No Precautions Safety Precautions NA Height and Weight Body Mass Index (BMI) 44.6 BMI Classification Obese Vital Signs Temperature (97.8 F-99.1 F) 97.6 F L Temperature Source Temporal Pulse Rate (60-100) 64 Respiratory Rate (12-18) 18 Blood Pressure (90/60-120/80) 109/49 L Blood Pressure Mean (mm Hg) 69 History Since Last Visit- (Skip if this is Patient's initial visit) Have you changed medications since your No last visit? Any new allergies or adverse reactions No Had a fall/change in ADL's that may No increase risk of falls Signs or symptoms of abuse and/or No neglect since last visit Have you been in the hospital since your No last visit? Has dressing in place as prescribed Yes Has compression in place as prescribed N/A Has offloadiing in place as prescribed N/A Experienced any changes in pain level or No management - Nurse 1 - General Ulcer Measurement Start: 09/16/20 10:58 Freq: Status: Active Protocol: Activity Type Activity Date Activity User E-Sign Co-Sign Detail Recorded Client Recorded Date Recorded By Document 09/16/20 10:58 MINA [id number] 09/16/20 11:01 MINA 09/16/20 10:58 Wound Center Nurse 1 #1 Right Buttock/Sacral -Current Size (cm) - Length 3.2 -Current Size (cm) - Width 3.5 -Current Size (cm) - Depth 5.0 -Total Square Cm 11.20 -Tunneling Yes -Tunneling Position (O'clock) 12 -Tunneling Distance (cm) 4.6 -Undermining/Tunneling No -Circular Undermining No -Exudate Amt Large -Exudate Type Serosanguineous -Granulation Amt Medium (34-66%) -Granulation Quality Pisek -Slough/Fibrin Yes -Necrosis Amt Medium (34-66%) -Necrotic Tissue Type Adherent Slough -Texture (Gaviota-wound Skin Appearance) No Abnormality -Moisture (Gaviota-wound Skin Appearance) No Abnormality -Color ([place]aviota-wound Skin Appearance) No Abnormality -Temperature ([place]aviota-wound Skin No Abnormality Appearance) (Pt Warm) -Ulcer Cleansing Rinsed/ Irrigated with Saline -Foul Odor after Cleansing No -Anesthetic Used 4% Lidocaine Solution LUCRECIA - Nurse 2 - General Ulcer CM Notes Start: 09/16/20 10:58 Freq: Status: Active Protocol: Activity Type Activity Date Activity User E-Sign Co-Sign Detail Recorded Client Recorded Date Recorded By Document 09/16/20 11:10 MW [id number] 09/16/20 11:14 MW 09/16/20 11:10 Wound Center Nurse 2 -Time 11:11 -Correct Patient Yes -Correct Side, Site, Position Yes -Correct Procedure Yes -Procedure Performed Yes -Type of Procedure Debridement -Clinical Debridement Subcutaneous -Tissue Removed Subcutaneous -Post Debridement (cm) - Length 3.5 -Post Debridement (cm) - Width 7.0 -Post Debridement (cm) - Depth 3.5 -Total Square (Post) (cm) 24.50 -Area of Debridement (cm) - Length 3.5 -Area of Debridement (cm) - Width 7.0 -Total Square (Area) (cm) 24.50 -Tunneling Yes -Tunneling Position (O'clock) 12 -Tunneling Distance (cm) 4.0 -Undermining/Tunneling No -Circular Undermining No -Wound/Ulcer Outcome Not Healed -Ulcer Cleansing Rinsed/ Irrigated with Saline -Foul Odor after Cleansing No -Bioengineered Tissue No -Bleeding Controlled with Pressure -Offloading No -Treatment Response Procedure Tolerated Well -Debridement - Subq, 1st 20sq cm Yes -Debridement, SubQ, ea addt'l 20sq cm 1 or part thereof Pain Scale: 0-10 Numeric Is Patient Pain Free? Yes LUCRECIA - Nurse 3 - General Ulcer D/C NN Start: 09/16/20 10:58 Freq: Status: Active Protocol: Activity Type Activity Date Activity User E-Sign Co-Sign Detail Recorded Client Recorded Date Recorded By Document 09/16/20 11:50 PL [id number] 09/16/20 11:50 PL 09/16/20 11:50 Wound Care Nurse 3 #1 Right Buttock/Sacral -Ulcer Cleansing Rinsed/ Irrigated with Saline -Foul Odor after Cleansing No -Primary Dressing Applied Mepilex Border -Mepilex Border 1 WC - Visit Discharge Discharge Condition Stable Ambulatory Status Stretcher Transportation Ambulance Clinical Summary of Care Provided Yes Wound debrided: Right buttocks Laterality: Right Wound Grade/Stage: Stage IV Type of Debridement: Excisional debridement Anesthesia Used: 5% Lidocaine Gel Depth: Down to and including healthy tissue, in the subcutaneous layer, to muscle and to bone Percentage of wound debrided: 100 Instrument Used: 7mm curette Tissue Removed: Fibrin Severity: Necrosis of Bone Amount of bleeding with debridement: Mild Bleeding Controlled with: Compression and gauze Patient tolerated procedure: Patient tolerated procedure well Assessment/Plan Assessment/Plan (1) Diabetes: CODE(S): E11.9 - Type 2 diabetes mellitus without complications QUALIFIERS: Diabetes mellitus type: due to underlying condition Diabetes mellitus mcc insulin use: without long goods drier use Diabetes mellitus complication status: with circulatory complication Diabetes mellitus complication detail: with other circulatory complications Qualified Code(s): E08.59 - Diabetes mellitus due to underlying condition with other circulatory complications (2) Morbid obesity with BMI of 60.0-69.9, adult: CODE(S): E66.01 - Morbid (severe) obesity due to excess calories; Z68.44 - Body mass index [BMI] 60.0-69.9, adult (3) Sacral decubitus ulcer, stage IV: CODE(S): L89.154 - Pressure ulcer of sacral region, stage 4 PLAN: Continue packing with gauze soaked in Dakin's solution followed with coverage on ABD and super absorbent pad daily and as needed (4) Osteomyelitis: CODE(S): M86.9 - Osteomyelitis, unspecified QUALIFIERS: Osteomyelitis type: acute hematogenous Osteomyelitis location: other site Qualified Code(s): M86.08 - Acute hematogenous osteomyelitis, other sites PLAN: Refer to I&D for her osteomyelitis
== END 2020-10-13 23:59 ==
LOC: WC 10:56
PROVIDERS: PCP Internal Medicine; Referring Provider Surgery; Visit Provider Nurse Practitioner
DX: L89.154 Pressure ulcer of sacral region, stage 4 (principal); E08.59 Diabetes mellitus due to underlying condition with other circulatory complications; E66.01 Morbid (severe) obesity due to excess calories; Z68.44 Body mass index [BMI] 60.0-69.9, adult; M86.08 Acute hematogenous osteomyelitis, other sites
CPT/HCPCS: 11042; 11045

== ENCOUNTER 2020-10-02 12:14 | Observation (INO) | payer MEDICARE, BC, MEDICAID, SELFPAY ==
--- NOTE | 2020-10-01 22:56 | HP.PCM_ITS ---
History and Physical Date of Admission: 10/02/20 HISTORY OF PRESENT ILLNESS 65-year-old white obese nonambulatory female with a history of diabetes mellitus came to the Wound Center because of a right sacral pressure sore. She developed the pressure sore when she fell last year and was not found for almost 20 hours. She had laid on her back and her legs were caught underneath her body. She developed a gangrene left heel that is now healed but has not walked since. Has developed neuropathies and drop foot. Wound care is with Hydrofera Blue. This is keeping the pressure sore clean and no odor. Today she denies fever. Her appetite is ok. Encourage nutritional supplementation with protein to help the healing process. CT Pelvis was done on 08/12/20. It showed sacral decubitus ulcer with osteomyelitis of the right sacral ala. A wound culture was done on 07/20/20. It showed Streptococcus agalactiae (B), Staphylococcus capitis, Corynebacterium striatum, Anaerobic cocci, and Bacteroides fragilis. She was treated with Augmentin. I was asked to evaluate this patient for surgical options for treatment. PAST MEDICAL HISTORY Diabetes PAST SURGICAL HISTORY None. MEDICATIONS Lactobacillus acidophilus 1 capsule PO BID 06/03/20 [History Last Taken Unknown] acetaminophen 650 mg PO Q4H PRN PRN 06/03/20 [History Last Taken Unknown] ascorbic acid (vitamin C) 500 mg PO BID 06/03/20 [History Last Taken Unknown] vikhisn-dghirjgcpjgar-ikkhxvsh 2 tablet PO BID PRN 06/03/20 [History Last Taken Unknown] atenolol 50 mg PO DAILY 06/03/20 [History Last Taken Unknown] Atorvastatin 40 mg PO DAILY 06/03/20 [History Last Taken Unknown] bisacodyl 10 mg RECTAL DAILY PRN PRN 06/03/20 [History Last Taken Unknown] cyclobenzaprine 5 mg PO DAILY 06/03/20 [History Last Taken Unknown] diphenhydramine HCl 25 mg PO Q6H PRN 06/03/20 [History Last Taken Unknown] docusate sodium 100 mg PO DAILY 06/03/20 [History Last Taken Unknown] ergocalciferol (vitamin D2) 50,000 unit PO FR 06/03/20 [History Last Taken Unknown] famotidine 20 mg PO BID 06/03/20 [History Last Taken Unknown] ferrous sulfate 325 mg PO BIDCM 06/03/20 [History Last Taken Unknown] furosemide 40 mg PO DAILY 06/03/20 [History Last Taken Unknown] gabapentin 600 mg PO TID 06/03/20 [History Last Taken Unknown] loperamide 2 mg PO DAILY PRN 06/03/20 [History Last Taken Unknown] magnesium hydroxide 30 ml PO DAILY PRN PRN 06/03/20 [History Last Taken Unknown] meclizine 25 mg PO Q12H PRN 06/03/20 [History Last Taken Unknown] metformin 500 mg PO DAILY 06/03/20 [History Last Taken Unknown] ondansetron 4 mg PO Q8H PRN PRN 06/03/20 [History Last Taken Unknown] oxycodone 5 mg PO Q6H PRN PRN 06/03/20 [History Last Taken Unknown] polyethylene glycol 3350 17 gm PO DAILY 06/03/20 [History Last Taken Unknown] potassium chloride 20 meq PO TID 06/03/20 [History Last Taken Unknown] sertraline 150 mg PO DAILY 06/03/20 [History Last Taken Unknown] ALLERGIES DOXYCYCLINE REVIEW OF SYSTEMS Constitutional: Denies: Chills, Fever Eyes: Denies: Blurred vision, Drainage, Pain HEENT: Denies: Difficulty Hearing, Difficulty Swallowing, Sore Throat, Visual Changes Cardiovascular: Denies: Chest Pain, Palpitations, Syncope Respiratory: Denies: Cough, Shortness of Breath Gastrointestinal: Denies: Abdominal Pain, Nausea, Vomiting Genitourinary: Denies: Dysuria, Frequency Musculoskeletal: Denies: Joint Pain, Muscle pain Skin: Reports: Wounds. Denies: Jaundice, Rash Neurological: Denies: Balance problems, Change in Speech, Difficulty swallowing, Focal weakness Psychiatric: Denies: Anxiety, Depression Endocrine: Denies: Change in Body Habitus Hematologic/ Lymphatic: Denies: Adenopathy PHYSICAL EXAMINATION General: Oriented x3, Cooperative. HEENT: PERRLA, EOMI. Oral: Moist Mucosa Neck: Supple, Nontender. No cervical adenopathy. Lungs: Clear to auscultation. Cardiovascular: Regular rate, Regular Rhythm. Abdomen: Soft, Nondistended. Extremities: No clubbing, No edema. Skin: There is a right sacral pressure sore extending through the muscle down to the bone, making it a Stage IV. No exposed bone is seen. Some granulation tissue is seen. No purulent drainage. Bone is palpable. Lymphatic: No Cervical, axillary, or Inguinal Adenopathy Neurological: Cranial nerves II-XII grossly intact. Psych/Mental Status: Normal Affect, Appropriate. ASSESSMENT (1) Right sacral pressure sore, stage IV. (2) Morbid obesity. (3) Diabetes. PLAN Begin Dakin's dressing changes daily. Recommend operative intervention with excision of the right sacral pressure sore at least into the muscle. If there is tracking down to bone then a partial ostectomy for osteomyelitis would be done. If there is stool contamination during the healing process, then a General Surgery evaluation would be needed for a diverting colostomy. Anticipate increased metabolic demands from the pressure sore. Encourage nutritional supplementation with protein to help the healing process. Will check a Prealbumin at the time of surgery. Surgery will be done under general anesthesia with a surgical observation overnight stay in the hospital. Postoperatively a VAC will be placed. Soft tissue will be sent to Pathology and Microbiology for culture. A positive culture will necessitate antibiotic therapy. If bone is involved and a partial ostectomy is done, then would send to Pathology to evaluate for osteomyelitis and to Microbiology for culture. Also at the time of surgery, a HgbA1c will be checked. Before wound closure can be done with myocutaneous flaps, the HgbA1c needs to be less than 8. Also at the time of the myocutaneous flap, the infection needs to be treated and the nutrition needs to be maximized. After a myocutaneous flap, the patient will need to be on complete bedrest for 6 weeks. Prior to surgery, a CT Pelvis was done on 08/12/20. It showed sacral decubitus ulcer with osteomyelitis of the right sacral ala. A wound culture was done on 07/20/20. It showed Streptococcus agalactiae (B), Staphylococcus capitis, Corynebacterium striatum, Anaerobic cocci, and Bacteroides fragilis. She was treated with Augmentin. At the Alf, a specialty bed is needed such as a low air loss bed to m inimize pressure issues. Frequent turning is also necessary. Patient was informed of the risks and complications of the procedure including alternatives to surgery. These were discussed with the patient personally. Patient voices understanding and wishes to proceed. We discussed the current risks associated with COVID-19. While it is understood that there is a community spread of COVID-19, the risk of selena COVID-19 while at [facility] ([facility]) is very low; however, the risk cannot be completely mitigated because of the community spread of the disease. We discussed in detail the risk of exposure to and/or potential harm posed by the COVID-19 virus with having a surgery/procedure at this time versus the risk of delaying the surgery/procedure. It is not possible to know either the risk of delaying the surgery or procedure or chance of getting an infection with perfect accuracy, but a joint decision was made to proceed at this time with the scheduled surgery/procedure as indicated on the consent form. Patient was notified that we will need to comply with any screening or testing [facility] wishes to perform or that surgery may be delayed for any positive results.
[2020-10-02] VITALS (12 sets, daily range): BP systolic 108–180; BP diastolic 48–78; PULSE 65–80; RESP 16–18; TEMP 36.2–36.9; O2SAT 92–100; BMI 51.1; BMI 51.2
--- NOTE | 2020-10-02 | PRES_PTH ---
PATIENT: LUIS ANTONIO CIFUENTES LOC: MS3 U#:[id number] AGE/SX: 65/F ROOM: WI324 RE10/02/[address]: Dr. Heather Myers MD : 1955 BED: 1 DIS: 10/07/2020 SPEC #: [id number] RECD: 10/02/20 13:27 STATUS: KATI REQ #: [id number] DUY: 10/02/20 00:[address]: Joaquin Miller DEPT: SURGICAL PATHOLOGY RECD BY: Harinder Holbrook ENTERED: 10/05/20 08:10 SP TYPE: PRESS SORE OTHR DR: DO Dr. Joaquin Dudley MD Dr. Mehrdad Tavallaee, MD Dr. Nana Yaa Koram, MD Tissues: A - Ischium, NOS B - Ischium, NOS Procedures: Decalcification bone/plaque Surgery Specimen Level III Comments: @ Ordering doctor for DEC edited from to @ by LION at 10/05/20 1342 @ Ordering doctor for SUIV edited from to @ by LION at 10/05/20 1342 @ Submitting doctor edited from to [email or web address] Root by LION at 10/05/20 1342 HEADER OPERATION: Excision sacral pressure sore with partial ostectomy PRE-OP DIAGNOSIS: Pressure ulcer of sacral region, stage 4 TISSUE SUBMITTED: A ? Sacral soft tissue, B ? Sacral bone MICROSCOPIC DIAGNOSIS A. Sacral soft tissue, excision: A piece of skin with underlying tissue with focal ulceration, acute and chronic inflammation and granulation tissue reaction and dense fibrosis. B. Sacral bone: Pieces of bone with chronic inflammation and reactive changes, negative for acute osteomyelitis. SJ:eric 10/08/2020 MICROSCOPIC DESCRIPTION Slides are reviewed. GROSS DESCRIPTION A - Received in fixative is one container labeled with the patient's name and designated sacral soft tissue. The specimen consists of a piece of skin with underlying tissue measuring 8 x 6 x 4 cm. A central area of defect is noted consistent with area of ulceration. Software Development Specialist sections are submitted in three cassettes. B - Received in fixative is one container labeled with the patient's name and designated sacral bone. The specimen consists of multiple fragments of bone that in aggregate measure 2 x 2 x 0.3 cm. The entire specimen is submitted in one cassette after decalcification. / ALISIA:eric 10/05/20 TC:2 CPT: 64835 x2, 93592
[2020-10-02] MEDS: Lactated Ringers 1,000 ML 100 ML IV ×2 (09:04→12:08)
[2020-10-02] MEDS: Lidocaine 1% /Epi 1:100 (20ml) 20 ML Vial (11:08)
--- NOTE | 2020-10-02 11:12 | OP.PCM_ITS ---
Problems Associated Problem List Diagnoses (1) Sacral decubitus ulcer, stage IV: (2) Osteomyelitis: (3) Diabetes: (4) Morbid obesity with BMI of 60.0-69.9, adult: Report of Operation Date of Procedure: 10/02/20 Pre-Operative Diagnosis: (1) Right sacral pressure sore, stage IV. (2) Morbid obesity. (3) Diabetes. Post-Operative Diagnosis: (1) Right sacral pressure sore, stage IV. (2) Morbid obesity. (3) Diabetes. (4) Clinical osteomyelitis. Surgery/Procedure Performed:: Excision right sacral pressure sore, Stage IV, with partial ostectomy for osteomyelitis. Description of Surgical Findings:: 65-year-old white obese nonambulatory female with a history of diabetes mellitus came to the Wound Center because of a right sacral pressure sore. She developed the pressure sore when she fell last year and was not found for almost 20 hours. She had laid on her back and her legs were caught underneath her body. She developed a gangrene left heel that is now healed but has not walked since. Has developed neuropathies and drop foot. Wound care is with Hydrofera Blue. This is keeping the pressure sore clean and no odor. Today she denies fever. Her appetite is ok. Encourage nutritional supplementation with protein to help the healing process. CT Pelvis was done on 08/12/20. It showed sacral decubitus ulcer with osteomyelitis of the right sacral ala. A wound culture was done on 07/20/20. It showed Streptococcus agalactiae (B), Staphylococcus capitis, Corynebacterium striatum, Anaerobic cocci, and Bacteroides fragilis. She was treated with Augmentin. I was asked to evaluate this patient for surgical options for treatment. Patient was informed of the risks and complications of the procedure including alternatives to surgery. These were discussed with the patient personally. Patient voices understanding and wishes to proceed. Size of right sacral defect - 12 x 6 x 4 cm. Surgeon: Joaquin Miller converting technician: None Type of Anesthesia: General Specimen's removed: 1. Right sacral pressure sore, Stage IV, soft tissue, to Pathology and Microbiology. 2. Right sacral pressure sore, Stage IV, bone, to Pathology and Microbiology. Drains: None. Estimated Blood Loss (mL): 250. Description of Procedure: Patient was taken to OR in supine position and was placed under general anesthesia. She was placed in the prone position. SCD's were placed for DVT prophylaxis. Perioperative antibiotics were given intravenously. The sacral area was prepped and draped in the usual fashion. Using xylocaine with epinephrine, the right sacral pressure sore was infiltrat ed. After waiting 5 minutes for the anesthetic to take effect, I excised the sacral pressure sore in a circular fashion through subcutaneous tissue and some necrotic muscle which extended down to the bone. A partial ostectomy was then performed using rongeurs. The bone looked grayish. Clinically the bone looked suspicious for osteomyelitis. Specimens from several areas of bone were taken. A rasp was used to smooth out the bony edges. After excising the extensive fat necrosis and muscle necrosis and abnormal bursal scar tissue, the remaining soft tissue showed good bleeding. Hemostasis was obtained with electrocautery. The size of the right sacral pressure sore after excision was 12 x 6 x 4 cm. The wound was irrigated with saline. I then dressed the pressure sore wound by placing Mepitel nonadherent dressing in the base of the wound followed by Kerlix gauze and Betadine and dry Kerlix gauze followed by ABD pads compression dressing. Half the soft tissue and half the bone was sent to Pathology for analysis to rule out carcinoma and to evaluate for osteomyelitis. Half the soft tissue and half the bone was sent to Microbiology for culture. A positive culture will necessitate antibiotic therapy. If pathology is positive for osteomyelitis, then intermodal dispatcher IV antibiotics would be needed through a PICC line. Patient tolerated the procedure well and was sent to PACU in satisfactory condition. Patient will be sent upstairs for continued postop care. The VAC will be placed tomorrow. Anticipate increased metabolic demands. Will check a Prealbumin and encourage nutritional supplementation with protein to help the healing process. Grafts/Implants Used: None. Complications None. Admit VTE Documentation VTE Present on Admission: No VTE Mechan Device Prophylaxis: SCD's VTE Pharm Prophylaxis ordered?: Yes Addendum Addendum: Surgery Charges CPT - 50690 ICD-10 - L89.154, M86.9, E11.9, E66.01
[2020-10-02 12:01] LABS: Bedside Glucose 150 mg/dL (70-110)
--- NOTE | 2020-10-02 12:06 | SUR.PHASEI ---
Awaiting transfer orders from Dr. Miller. S.
[2020-10-02 12:16] LABS: Bedside Glucose 151 mg/dL (70-110)
[2020-10-02] MEDS: Gabapentin 600 MG Tablet PO ×2 (14:10→21:30)
--- NOTE | 2020-10-02 14:43 | PCM.PN.HOSP ---
Subjective Subjective Consult requested by Dr. Miller for medical managment. Pt doing well post operative. She states that she cannot walk due to an event in 2019 when she fell onto her legs for 17 hours. She was just too weak and not been able to walk since. She has developed a sacral decubitus ulcer which has been healing, but was taken to surgery today for excision of right sacral decubitus ulcer, stage IV by Dr. Miller. She states that she is being discharged 10/03 and already has a PICC and antibiotics ordered from previous. Objective Data Objective Data Vital Signs: Vital Signs Temp Pulse Resp BP Pulse Ox 36.4 C L 66 18 126/52 H 94 10/02/20 12:48 10/02/20 12:48 10/02/20 12:48 10/02/20 12:48 10/02/20 12:48 Oxygen Flow Rate (L/min) 2 Oxygen Delivery Method Room Air Weight: 146 kg Body Mass Index (BMI) 51.1 Intake & Output: Intake and Output for Last 24 Hours 09/30/20 10/01/20 10/02/20 23:59 23:59 23:59 Intake Total 1112 / 1112 Balance 1112 / 1112 Lab / Micro Data Labs: Laboratory Results - last 24 hr 10/02/20 08:57: POC Glucose 151 H 10/02/20 11:55: POC Glucose 150 H Physical Exam Const alert Constitutional Narrative: lying in bed. afebrile. Nutritional Appearance: obese Resp normal respiratory effort, no retractions, no use of accessory muscles and clear to auscultation bilaterally Cardio regular rate, regular rhythm, S1 normal heart sound and S2 normal heart sound GI normal to inspection, nondistended, normoactive bowel sounds, soft to palpation, non-tender and non-distended Assessment & Plan Assessment/Plan (1) Sacral decubitus ulcer, stage IV: PLAN: 1. stage IV sacral decubitus ulcer and osteomyelitis s/p excision and ostecteomy currently on ampicillin/SB and vancomycin Cultures pending. Cultures from 07/20/2020: GBS, Corynebacterium, Staph capitus and Bacteroides Already has PICC. Additional mgmt per PRS 2. DM2 non-insulin dependent on metformin add SSI 3. Morbid obesity complicates care and recorvery may benefit from bariatric eval in future 4. Functional paraplegia noted drop foot since the incident in 2019 PT OT pt appears resigned to the fact that she may never go home. 5. VTE prophylaxis: LMWH Thank you for the consult. The Hospitalist service will continue to follow. Charges/Coding Visit Charges Inpatient E&M: 81903 Subs Hosp L2
--- NOTE | 2020-10-02 14:44 | CASEMGMT ---
Addendum entered by Nida Zhou 10/02/20 16:15: SW received call from Mirta at [facility]. Pt is fdc resident but will be returning skilled. SW in to speak with pt. SW introduced self and role at [facility]. Pt confirms she is from [facility] and will be returning at discharge. SW placed Green sheet, transport form, COVID tool on pt's chart. Pt will need COVID test on day of discharge. Plan: Return to [facility] once medically cleared Original Note: Social Work Note Pt is listed as being from [facility]. SW placed a call to [facility] and left message for Mirta in admissions. SW received message from Mirta stating pt is able to return when medically cleared. Pt will need a COVID test on day of discharge. Nida Zhou EARLY CHILDHOOD ASSISTANT, PLASTERING SUPERVISOR
[2020-10-02 15:24] LABS: Creatinine, Serum 0.76 mg/dL (0.55-1.02); EST Glomerular Filtration Rate 81 mL/min (>60); Est Glom Filt Rate - Afr Amer 98 mL/min (>60); Estimated Creatinine Clearance 51.11 ml/min
--- NOTE | 2020-10-02 15:56 | PCM.RX.CS ---
Consult Pharmacy has been consulted to manage selected antiobiotic: Vancomycin Type of Consult: New start Suspected Infection: Skin/Soft tissue Labs: Creatinine 0.76 mg/dL (0.55-1.02) 10/02/20 14:59 Est GFR (MDRD) Af Amer 98 mL/min (>60) 10/02/20 14:59 Est GFR (MDRD) Non-Af 81 mL/min (>60) 10/02/20 14:59 Microbiology: Microbiology 10/02/20 Unknown Tissue - Sacral Gram Stain - Final 10/02/20 Unknown Bone - Sacral Bone Gram Stain - Final Weight used for dosin kg Estimated Creatinine Clearance: 80.6ML/MIN Goal Trough: 10-15 mcg/mL Pharmacy Plan for Drug Dosing: Give initial dose of 2000mg IV x1, then continue with 1250mg IV q12h. Will check a trough level before the 4th total dose. Pharmacy Service will continue to monitor and adjust dosing as required. Follow-Up Labs: Trough Vancomycin Labs to be done on [date and time ordered]: 10/04/20 01:30
[2020-10-02] MEDS: Ferrous Sulfate 325 MG Tablet PO (16:47)
[2020-10-02] MEDS: Ascorbic Acid 500 MG Tablet PO (16:48)
[2020-10-02] MEDS: Potassium Chloride Oral Tablet 20 MEQ PO (16:48)
[2020-10-02 16:55] LABS: Bedside Glucose 122 mg/dL (70-110)
[2020-10-02] MEDS: oxyCODONE 5 MG Tablet 10 MG PO (16:58)
[2020-10-02] MEDS: Acetaminophen 500 MG Tablet 1000 MG PO (16:58)
[2020-10-02] MEDS: Ergocalciferol 1.25 MG (50, 000 UNIT) Capsule PO (17:01)
--- NOTE | 2020-10-02 19:27 | PCS.PANDOC ---
PANDEMIC DOCUMENTATION INITIATED: Date: 09/28/2020 Time: 1900 Pandemic charting added at this time. 1926
[2020-10-02] MEDS: BENZOCAINE/MENTHOL 1 LOZENGE MUCOUS MEM (21:27)
[2020-10-02] MEDS: Nystatin Powder 15gm Bottle 1 APPLIC TOPICAL (21:28)
[2020-10-02] MEDS: Famotidine 20 MG Tablet PO (21:30)
[2020-10-02] MEDS: Atorvastatin Calcium 40 MG Tablet PO (21:30)
[2020-10-02] MEDS: Docusate Sodium 100 MG Capsule PO (21:30)
[2020-10-02 21:41] LABS: Bedside Glucose 125 mg/dL (70-110)
[2020-10-03 00:21] VITALS: BMI 51.2
[2020-10-03 02:00] VITALS: BP 105/47; PULSE 80; RESP 18; TEMP 37.1; O2SAT 99
[2020-10-03] MEDS: oxyCODONE 5 MG Tablet 10 MG PO ×4 (02:03→17:41)
[2020-10-03] MEDS: Acetaminophen 500 MG Tablet 1000 MG PO ×2 (02:04→20:07)
[2020-10-03 05:19] VITALS: BMI 51.2
[2020-10-03] MEDS: Gabapentin 600 MG Tablet PO ×3 (06:32→22:52)
[2020-10-03 06:56] LABS: Bedside Glucose 134 mg/dL (70-110)
[2020-10-03] MEDS: 0.9% Saline Lock 10 ML Syringe IV (07:03)
[2020-10-03 07:12] LABS: Hematocrit 30.9 % (37-47); Hemoglobin 9.5 g/dL (12.0-15.0); Mean Corp Hgb Conc 30.7 g/dL (32-36); Mean Corpuscular Hgb 27.1 pg (27.0-32.0); Platelet Count 179 K/mm3 (150-450); RBC Distribution Width CV 15.2 % (11.6-14.6); RBC Distribution Width SD 49.1 fl (35.1-43.9); Red Blood Count 3.51 M/mm3 (4.2-5.4); White Blood Count 8.1 K/mm3 (4.4-11.0)
[2020-10-03 07:53] LABS: Anion Gap 5 (5-15); BUN 17 mg/dL (7-18); BUN/Creat Ratio 28.9 RATIO (10-20); Calcium,Total 8.3 mg/dL (8.5-10.1); Chloride 106 mmol/L (98-107); Creatinine, Serum 0.59 mg/dL (0.55-1.02); EST Glomerular Filtration Rate 108 mL/min (>60); Est Glom Filt Rate - Afr Amer 131 mL/min (>60); Estimated Creatinine Clearance 51.11 ml/min; Glucose 126 mg/dL (74-106); Potassium 3.9 mmol/L (3.5-5.1); Prealbumin 27.5 mg/dL (20.0-40.0); Sodium Level 140 mmol/L (136-145)
[2020-10-03 08:55] VITALS: BP 109/55; PULSE 78; RESP 16; TEMP 36.9; O2SAT 99
[2020-10-03] MEDS: Polyethylene Glycol 3350 17 GM PACKET PO (09:08)
[2020-10-03] MEDS: Potassium Chloride Oral Tablet 20 MEQ PO ×3 (09:09→17:39)
[2020-10-03] MEDS: Furosemide 40 MG Tablet PO (09:09)
[2020-10-03] MEDS: Enoxaparin 40 MG/0.4 ML Syringe SC (09:09)
[2020-10-03] MEDS: Docusate Sodium 100 MG Capsule PO ×2 (09:10→22:52)
[2020-10-03] MEDS: Ascorbic Acid 500 MG Tablet PO ×2 (09:10→17:39)
[2020-10-03] MEDS: Famotidine 20 MG Tablet PO ×2 (09:11→22:53)
[2020-10-03] MEDS: metFORMIN (XR) 500 MG Tablet PO (09:13)
[2020-10-03] MEDS: Atenolol 50 MG Tablet PO (09:13)
[2020-10-03] MEDS: Nystatin Powder 15gm Bottle 1 APPLIC TOPICAL ×2 (09:24→22:53)
[2020-10-03] MEDS: Lactated Ringers 1,000 ML 60 ML IV (09:28)
[2020-10-03] MEDS: cycloBENZAPRine HCl 5 MG TABLET PO ×2 (11:01→20:08)
[2020-10-03] MEDS: Insulin Lispro 100 UNIT/ML INSULN.PEN SC (11:09)
[2020-10-03] MEDS: Ferrous Sulfate 325 MG Tablet PO ×2 (11:10→17:38)
[2020-10-03 11:21] LABS: Bedside Glucose 157 mg/dL (70-110)
--- NOTE | 2020-10-03 11:38 | PCM.PN.HOSP ---
Subjective Subjective complains of head and neck pain today. Objective Data Objective Data Vital Signs: Vital Signs Temp Pulse Resp BP Pulse Ox 36.9 C 78 16 109/55 L 99 10/03/20 08:55 10/03/20 08:55 10/03/20 08:55 10/03/20 08:55 10/03/20 08:55 Oxygen Flow Rate (L/min) 2 Oxygen Delivery Method Room Air Weight: 146 kg Body Mass Index (BMI) 51.1 Intake & Output: Intake and Output for Last 24 Hours 10/01/20 10/02/20 10/03/20 23:59 23:59 23:59 Intake Total 2164 / 2164 1499 / 1499 Output Total 300 / 300 300 / 300 Balance 1864 / 1864 1199 / 1199 Lab / Micro Data Result Diagrams: 10/03/20 07:00 10/03/20 07:00 Labs: Laboratory Results - last 24 hr 10/02/20 08:57: POC Glucose 151 H 10/02/20 11:55: POC Glucose 150 H 10/02/20 14:59: Creatinine 0.76, Estim Creat Clear Calc 51.11, Est GFR (MDRD) Af Amer 98, Est GFR (MDRD) Non-Af 81 10/02/20 16:34: POC Glucose 122 H 10/02/20 21:27: POC Glucose 125 H 10/03/20 06:34: POC Glucose 134 H 10/03/20 07:00: WBC 8.1, RBC 3.51 L, Hgb 9.5 L, Hct 30.9 L, MCV 88.0, MCH 27.1, MCHC 30.7 L, RDW Std Deviation 49.1 H, RDW Coeff of Dayo 15.2 H, Plt Count 179, MPV 10.0 10/03/20 07:00: Sodium 140, Potassium 3.9, Chloride 106, Carbon Dioxide 29.0, Anion Gap 5, BUN 17, Creatinine 0.59, Estim Creat Clear Calc 51.11, Est GFR (MDRD) Af Amer 131, Est GFR (MDRD) Non-Af 108, BUN/Creatinine Ratio 28.9 H, Glucose 126 H, Calcium 8.3 L, Prealbumin 27.5 10/03/20 11:06: POC Glucose 157 H Micro: Microbiology 10/02/20 Unknown Bone - Sacral Bone Gram Stain - Final 10/02/20 Unknown Bone - Sacral Bone Wound Culture - Preliminary No growth-Final to follow 10/02/20 Unknown Tissue - Sacral Gram Stain - Final 10/02/20 Unknown Tissue - Sacral Wound Culture - Preliminary No growth-Final to follow Physical Exam Const alert Nutritional Appearance: obese Neck Neck Narrative: posterior cervical muslc etnederness. Resp normal respiratory effort, no retractions, no use of accessory muscles and clear to auscultation bilaterally Cardio regular rate, regular rhythm, S1 normal heart sound and S2 normal heart sound GI normal to inspection, nondistended, normoactive bowel sounds Assessment & Plan Assessment/Plan (1) Sacral decubitus ulcer, stage IV: PLAN: 1. stage IV sacral decubitus ulcer and osteomyelitis s/p excision and ostecteomy currently on ampicillin/SB and vancomycin Cultures pending. Cultures from 07/20/2020: GBS, Corynebacterium, Staph capitus and Bacteroides Already has PICC. Additional mgmt per PRS follow up cultures 2. DM2 non-insulin dependent on metformin add SSI fair control. 3. Morbid obesity complicates care and recovery may benefit from bariatric eval in future 4. Functional paraplegia noted drop foot since the incident in 2019 PT OT pt appears resigned to the fact that she may never go home. 5. VTE prophylaxis: LMWH 6. Neck strain may have been due to surgery add PRN cyclobenzaprine (dc scheduled) Charges/Coding Visit Charges Inpatient E&M: 22976 Subs Hosp L2
[2020-10-03] MEDS: HYDROmorphone 0.5 MG/0.5 ML SYRINGE IV (13:39)
[2020-10-03 13:55] VITALS: BP 114/48; PULSE 87; RESP 16; TEMP 36.2; O2SAT 95
--- NOTE | 2020-10-03 16:04 | CASEMGMT ---
BETTYE THOMAS in to completed BOYKIN form with patient. RN WILLIAM explained BOYKIN form to patient, patient voiced understanding. Patient signed BOYKIN form and filed in chart. RN WILLIAM provided patient with copy of signed BOYKIN form. Patient had no further questions or concerns.
[2020-10-03 16:11] LABS: Bedside Glucose 139 mg/dL (70-110)
--- NOTE | 2020-10-03 19:46 | PCM.PN.SRG ---
Subjective Subjective Postop #1 Patient complains of pain and spasm in her neck and shoulders. Explained to the patient that it is from positioning during surgery because she was in the prone position. VAC applied today. Objective Data Objective Data Vital Signs: Vital Signs Temp Pulse Resp BP Pulse Ox 97.2 F L 87 16 114/48 L 95 10/03/20 13:55 10/03/20 13:55 10/03/20 13:55 10/03/20 13:55 10/03/20 13:55 Oxygen Flow Rate (L/min) 2 Oxygen Delivery Method Nasal Cannula Weight: 321 lb 13.998 oz Body Mass Index (BMI) 51.1 Intake & Output: Intake and Output for Last 24 Hours 10/01/20 10/02/20 10/03/20 23:59 23:59 23:59 Intake Total 2164 / 2164 3250 / 3250 Output Total 300 / 300 500 / 500 Balance 1864 / 1864 2750 / 2750 Lab / Micro Data Attestation: I reviewed the patient's lab results. Result Diagrams: 10/05/20 06:20 10/05/20 06:20 Labs: Laboratory Results - last 24 hr 10/02/20 21:27: POC Glucose 125 H 10/03/20 06:34: POC Glucose 134 H 10/03/20 07:00: WBC 8.1, RBC 3.51 L, Hgb 9.5 L, Hct 30.9 L, MCV 88.0, MCH 27.1, MCHC 30.7 L, RDW Std Deviation 49.1 H, RDW Coeff of Dayo 15.2 H, Plt Count 179, MPV 10.0 10/03/20 07:00: Sodium 140, Potassium 3.9, Chloride 106, Carbon Dioxide 29.0, Anion Gap 5, BUN 17, Creatinine 0.59, Estim Creat Clear Calc 51.11, Est GFR (MDRD) Af Amer 131, Est GFR (MDRD) Non-Af 108, BUN/Creatinine Ratio 28.9 H, Glucose 126 H, Calcium 8.3 L, Prealbumin 27.5 10/03/20 11:06: POC Glucose 157 H 10/03/20 16:05: POC Glucose 139 H Micro: Microbiology 10/02/20 Unknown Bone - Sacral Bone Gram Stain - Final 10/02/20 Unknown Bone - Sacral Bone Wound Culture - Preliminary No growth-Final to follow 10/02/20 Unknown Tissue - Sacral Gram Stain - Final 10/02/20 Unknown Tissue - Sacral Wound Culture - Preliminary No growth-Final to follow Physical Exam Narrative General - Alert and Oriented HEENT - PERRL. EOMI. Neck - Supple. Some tenderness over the neck muscles. Abdomen - Soft and nondistended. Lower Back and Sacral area - Right sacral pressure sore wound is stable. No active bleeding noted. VAC applied. Neuro - CN II-XII grossly intact. Psych - Normal mood and affect. Assessment & Plan Assessment/Plan (1) Sacral decubitus ulcer, stage IV: (2) Osteomyelitis: QUALIFIERS: Osteomyelitis type: acute hematogenous Osteomyelitis location: other site Qualified Code(s): M86.08 - Acute hematogenous osteomyelitis, other sites (3) Diabetes: QUALIFIERS: Diabetes mellitus type: due to underlying condition Diabetes mellitus termite control service representative insulin use: without termite control service representative use Diabetes mellitus complication status: with circulatory complication Diabetes mellitus complication detail: with other circulatory complications Qualified Code(s): 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 No active bleeding noted. VAC applied today. Patient complains of neck pain and spasm. Explained to the patient that it is probably due to positioning in surgery as she was in the prone position. It should resolve with time and with a muscle relaxant. Cyclobenzaprine was ordered. If still a problem in next few days, will add Valium to help with the muscle spasm. Operative cultures are pending. On Vancomycin and Unasyn. Pathology is pending. Her Hgb is 9.5. She has anemia of chronic disease. There is no clinical evidence of ongoing bleeding. There was 250 ml of operative blood loss which is expected. Will start Iron supplementation. I don't have records of a previous Hgb. I want to see her neck spasm get a little better before I send her back to her [facility]. Anticipating possibly tomorrow.
[2020-10-03 19:59] VITALS: BP 141/58; PULSE 99; RESP 18; TEMP 37.2; O2SAT 97
[2020-10-03] MEDS: Atorvastatin Calcium 40 MG Tablet PO (22:53)
[2020-10-03 23:15] LABS: Bedside Glucose 117 mg/dL (70-110)
[2020-10-04] VITALS (7 sets, daily range): BP systolic 101–127; BP diastolic 46–65; PULSE 74–80; RESP 16–18; TEMP 36.7–37.6; O2SAT 84–99
[2020-10-04 01:47] LABS: Hematocrit 29.7 % (37-47); Hemoglobin 9.2 g/dL (12.0-15.0); Mean Corpuscular Hgb 27.5 pg (27.0-32.0); Mean Corpuscular Volume 88.9 fL (81-99); Mean Platelet Vol. 10.4 fl (6.2-12.0); Platelet Count 185 K/mm3 (150-450); RBC Distribution Width CV 15.4 % (11.6-14.6); RBC Distribution Width SD 50.9 fl (35.1-43.9); Red Blood Count 3.34 M/mm3 (4.2-5.4); White Blood Count 8.1 K/mm3 (4.4-11.0)
[2020-10-04 02:15] LABS: Anion Gap 5 (5-15); BUN 19 mg/dL (7-18); BUN/Creat Ratio 34.1 RATIO (10-20); Calcium,Total 8.9 mg/dL (8.5-10.1); Chloride 106 mmol/L (98-107); Creatinine, Serum 0.56 mg/dL (0.55-1.02); EST Glomerular Filtration Rate 115 mL/min (>60); Est Glom Filt Rate - Afr Amer 139 mL/min (>60); Estimated Creatinine Clearance 51.11 ml/min; Glucose 127 mg/dL (74-106); Potassium 4.1 mmol/L (3.5-5.1); Sodium Level 143 mmol/L (136-145)
[2020-10-04] MEDS: oxyCODONE 5 MG Tablet 10 MG PO ×2 (02:18→22:03)
[2020-10-04 02:19] LABS: Vancomycin, Trough Level 26.3 ug/mL (5.0-15.0)
[2020-10-04] MEDS: Lactated Ringers 1,000 ML 60 ML IV ×2 (02:19→22:01)
--- NOTE | 2020-10-04 02:33 | PCM.RX.CS ---
Consult Pharmacy has been consulted to manage selected antiobiotic: Vancomycin Type of Consult: Follow-up Suspected Infection: Skin/Soft tissue Prior Doses of Antibiotics Received/Current Regimen: Medications Discontinued Medications Vancomycin HCl 1,250 mg/ (Sodium Chloride) 275 mls @ 167 mls/hr IV Q12H JO Last Admin: 10/04/20 02:18 Dose: 167 mls/hr dose stopped due to high trough level Labs: Sodium 143 mmol/L (136-145) 10/04/20 01:25 Potassium 4.1 mmol/L (3.5-5.1) 10/04/20 01:25 Chloride 106 mmol/L (98-107) 10/04/20 01:25 Carbon Dioxide 32.0 mmol/L (21.0-32.0) 10/04/20 01:25 Anion Gap 5 (5-15) 10/04/20 01:25 BUN 19 mg/dL (7-18) H 10/04/20 01:25 Creatinine 0.56 mg/dL (0.55-1.02) 10/04/20 01:25 Est GFR (MDRD) Af Amer 139 mL/min (>60) 10/04/20 01:25 Est GFR (MDRD) Non-Af 115 mL/min (>60) 10/04/20 01:25 BUN/Creatinine Ratio 34.1 RATIO (10-20) H 10/04/20 01:25 Glucose 127 mg/dL (74-106) H 10/04/20 01:25 Vancomycin Trough 26.3 ug/mL (5.0-15.0) H 10/04/20 01:25 Microbiology: Microbiology 10/02/20 Unknown Bone - Sacral Bone Gram Stain - Final 10/02/20 Unknown Bone - Sacral Bone Wound Culture - Preliminary No growth-Final to follow 10/02/20 Unknown Tissue - Sacral Gram Stain - Final 10/02/20 Unknown Tissue - Sacral Wound Culture - Preliminary No growth-Final to follow Weight used for dosin kg Estimated Creatinine Clearance: 51 Goal Trough: 10-15 mcg/mL Pharmacy Plan for Drug Dosing: Vancomycin trough level was high at 26.3. Current dose was stopped. A random level is scheduled for 10/04/20 @1330 to determine further dosing. Pharmacy Service will continue to monitor and adjust dosing as required. Follow-Up Labs: Trough Vancomycin - random level Labs to be done on [date and time ordered]: 10/04/20 @1526
[2020-10-04] MEDS: cycloBENZAPRine HCl 5 MG TABLET PO ×3 (05:35→22:04)
[2020-10-04] MEDS: Gabapentin 600 MG Tablet PO ×3 (05:35→22:05)
[2020-10-04 06:11] LABS: Bedside Glucose 140 mg/dL (70-110)
--- NOTE | 2020-10-04 08:57 | PCM.PN.HOSP ---
Subjective Subjective Complains of shivering, headache and neck pain. States she feels similar to when she gets cellulitis. Objective Data Objective Data Vital Signs: Vital Signs Temp Pulse Resp BP Pulse Ox 36.7 C 80 16 127/60 H 98 10/04/20 08:39 10/04/20 08:39 10/04/20 08:39 10/04/20 08:39 10/04/20 08:39 Oxygen Flow Rate (L/min) 1.5 Oxygen Delivery Method Nasal Cannula Weight: 146 kg Body Mass Index (BMI) 51.1 Intake & Output: Intake and Output for Last 24 Hours 10/02/20 10/03/20 10/04/20 23:59 23:59 23:59 Intake Total 2164 / 2164 3612 / 3612 1000.53 / 1000.53 Output Total 300 / 300 1125 / 1125 650 / 650 Balance 1864 / 1864 2487 / 2487 350.53 / 350.53 Lab / Micro Data Result Diagrams: 10/04/20 01:25 10/04/20 01:25 Labs: Laboratory Results - last 24 hr 10/03/20 11:06: POC Glucose 157 H 10/03/20 16:05: POC Glucose 139 H 10/03/20 22:51: POC Glucose 117 H 10/04/20 01:25: Vancomycin Trough 26.3 H 10/04/20 01:25: WBC 8.1, RBC 3.34 L, Hgb 9.2 L, Hct 29.7 L, MCV 88.9, MCH 27.5, MCHC 31.0 L, RDW Std Deviation 50.9 H, RDW Coeff of Dayo 15.4 H, Plt Count 185, MPV 10.4 10/04/20 01:25: Sodium 143, Potassium 4.1, Chloride 106, Carbon Dioxide 32.0, Anion Gap 5, BUN 19 H, Creatinine 0.56, Estim Creat Clear Calc 51.11, Est GFR (MDRD) Af Amer 139, Est GFR (MDRD) Non-Af 115, BUN/Creatinine Ratio 34.1 H, Glucose 127 H, Calcium 8.9 10/04/20 05:35: POC Glucose 140 H Micro: Microbiology 10/02/20 Unknown Bone - Sacral Bone Gram Stain - Final 10/02/20 Unknown Bone - Sacral Bone Wound Culture - Preliminary No growth-Final to follow 10/02/20 Unknown Tissue - Sacral Gram Stain - Final 10/02/20 Unknown Tissue - Sacral Wound Culture - Preliminary No growth-Final to follow Physical Exam Narrative non-toxic. afebrile. Const alert and oriented x3 HEENT HEENT Narrative: forehead tender throughout. no temporal tenderness. Neck Neck Narrative: +posterior paraspinal muscle tenderness. Resp normal respiratory effort and no retractions Cardio regular rate, regular rhythm, S1 normal heart sound and S2 normal heart sound GI normal to inspection, nondistended, normoactive bowel sounds, soft to palpation and non-tender Assessment & Plan Assessment/Plan (1) Sacral decubitus ulcer, stage IV: PLAN: 1. stage IV sacral decubitus ulcer and osteomyelitis s/p excision and ostecteomy currently on ampicillin/SB and vancomycin Cultures pending. Cultures from 07/20/2020: GBS, Corynebacterium, Staph capitus and Bacteroides Already has PICC. Additional mgmt per PRS follow up cultures 2. DM2 fair control non-insulin dependent on metformin add SSI fair control. 3. Morbid obesity complicates care and recovery may benefit from bariatric eval in future 4. Functional paraplegia noted drop foot since the incident in 2019 PT OT pt appears resigned to the fact that she may never go home. 5. VTE prophylaxis: LMWH 6. Neck strain ongoing may have been due to surgery add PRN cyclobenzaprine (dc scheduled) no clinical suspicion for meningitis/encephalitis given absence of fever and leukocytosis. supportive mgmt. Charges/Coding Visit Charges Inpatient E&M: 99823 Subs Hosp L2
[2020-10-04] MEDS: Polyethylene Glycol 3350 17 GM PACKET PO (09:10)
[2020-10-04] MEDS: Ascorbic Acid 500 MG Tablet PO ×2 (09:11→17:26)
[2020-10-04] MEDS: Docusate Sodium 100 MG Capsule PO ×2 (09:12→22:05)
[2020-10-04] MEDS: Potassium Chloride Oral Tablet 20 MEQ PO ×3 (09:12→17:26)
[2020-10-04] MEDS: Enoxaparin 40 MG/0.4 ML Syringe SC (09:12)
[2020-10-04] MEDS: Iron Polysaccharide Complex 150 MG CAPSULE PO (09:13)
[2020-10-04] MEDS: metFORMIN (XR) 500 MG Tablet PO (09:14)
[2020-10-04] MEDS: Famotidine 20 MG Tablet PO ×2 (09:14→22:05)
[2020-10-04] MEDS: Atenolol 50 MG Tablet PO (09:15)
[2020-10-04] MEDS: Nystatin Powder 15gm Bottle 1 APPLIC TOPICAL ×2 (09:16→22:04)
[2020-10-04] MEDS: Furosemide 40 MG Tablet PO (09:19)
[2020-10-04] MEDS: Ferrous Sulfate 325 MG Tablet PO ×2 (11:07→17:26)
[2020-10-04 11:15] LABS: Bedside Glucose 139 mg/dL (70-110)
--- NOTE | 2020-10-04 11:23 | PCM.PN.SRG ---
Subjective Subjective Postop #2 She still has neck spasms, a little better. Objective Data Objective Data Vital Signs: Vital Signs Temp Pulse Resp BP Pulse Ox 98.1 F 80 16 127/60 H 98 10/04/20 08:39 10/04/20 08:39 10/04/20 08:39 10/04/20 08:39 10/04/20 08:39 Oxygen Flow Rate (L/min) 1.5 Oxygen Delivery Method Nasal Cannula Weight: 321 lb 13.998 oz Body Mass Index (BMI) 51.1 Intake & Output: Intake and Output for Last 24 Hours 10/02/20 10/03/20 10/04/20 23:59 23:59 23:59 Intake Total 2164 / 2164 3612 / 3612 1534.53 / 1534.53 Output Total 300 / 300 1125 / 1125 1350 / 1350 Balance 1864 / 1864 2487 / 2487 184.53 / 184.53 Lab / Micro Data Attestation: I reviewed the patient's lab results. Result Diagrams: 10/05/20 06:20 10/05/20 06:20 Labs: Laboratory Results - last 24 hr 10/03/20 16:05: POC Glucose 139 H 10/03/20 22:51: POC Glucose 117 H 10/04/20 01:25: Vancomycin Trough 26.3 H 10/04/20 01:25: WBC 8.1, RBC 3.34 L, Hgb 9.2 L, Hct 29.7 L, MCV 88.9, MCH 27.5, MCHC 31.0 L, RDW Std Deviation 50.9 H, RDW Coeff of Dayo 15.4 H, Plt Count 185, MPV 10.4 10/04/20 01:25: Sodium 143, Potassium 4.1, Chloride 106, Carbon Dioxide 32.0, Anion Gap 5, BUN 19 H, Creatinine 0.56, Estim Creat Clear Calc 51.11, Est GFR (MDRD) Af Amer 139, Est GFR (MDRD) Non-Af 115, BUN/Creatinine Ratio 34.1 H, Glucose 127 H, Calcium 8.9 10/04/20 05:35: POC Glucose 140 H 10/04/20 11:05: POC Glucose 139 H Micro: Microbiology 10/02/20 Unknown Tissue - Sacral Gram Stain - Final 10/02/20 Unknown Tissue - Sacral Wound Culture - Preliminary GNR Poss Pseudomonas sp 10/02/20 Unknown Bone - Sacral Bone Gram Stain - Final 10/02/20 Unknown Bone - Sacral Bone Wound Culture - Preliminary No growth-Final to follow Physical Exam Narrative General - Alert and Oriented HEENT - PERRL. EOMI. Neck - Supple. Some tenderness over the neck muscles. A little better. Abdomen - Soft and nondistended. Lower Back and Sacral area - Right sacral pressure sore wound is stable. VAC in place. Minimal drainage in the canister. Neuro - CN II-XII grossly intact. Psych - Normal mood and affect. Assessment & Plan Assessment/Plan (1) Sacral decubitus ulcer, stage IV: (2) Osteomyelitis: QUALIFIERS: Osteomyelitis type: acute hematogenous Osteomyelitis location: other site Qualified Code(s): M86.08 - Acute hematogenous osteomyelitis, other sites (3) Diabetes: QUALIFIERS: Diabetes mellitus type: due to underlying condition Diabetes mellitus intermodal customer service insulin use: without intermodal customer service use Diabetes mellitus complication status: with circulatory complication Diabetes mellitus complication detail: with other circulatory complications Qualified Code(s): E08.59 - 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 VAC in place. Minimal drainage in the canister. Patient complains of neck pain and spasm. A little better. Explained to the patient that it is probably due to positioning in surgery as she was in the prone position. It should resolve with time and with a muscle relaxant. She is on Cyclobenzaprine. Will add Valium. Operative cultures show Gram negative rods possible Pseudomonas in the soft tissue. On Vancomycin and Unasyn. Will stop the Unasyn and add Zosyn. Pathology is pending. Her Hgb is slightly lower at 9.2 from 9.5 yesterday. She has anemia of chronic disease. There is no clinical evidence of ongoing bleeding. There was 250 ml of operative blood loss which is expected. Continue Iron supplementation. Will keep her one more day until the antibiotic situation is more clear before discharge back to [facility]. Anticipating possibly tomorrow.
[2020-10-04] MEDS: Acetaminophen 500 MG Tablet 1000 MG PO (14:48)
[2020-10-04 16:36] LABS: Bedside Glucose 112 mg/dL (70-110)
[2020-10-04] MEDS: Atorvastatin Calcium 40 MG Tablet PO (22:05)
[2020-10-04] MEDS: 0.9% Saline Lock 10 ML Syringe IV (22:10)
[2020-10-04 22:30] LABS: Bedside Glucose 96 mg/dL (70-110)
[2020-10-05 02:36] VITALS: BP 110/44; PULSE 90; RESP 16; TEMP 36.8; O2SAT 95
[2020-10-05] MEDS: oxyCODONE 5 MG Tablet 10 MG PO ×4 (02:40→22:41)
[2020-10-05] MEDS: Gabapentin 600 MG Tablet PO ×3 (06:39→22:32)
[2020-10-05 06:44] LABS: Hematocrit 29.4 % (37-47); Hemoglobin 9.1 g/dL (12.0-15.0); Mean Corpuscular Hgb 27.3 pg (27.0-32.0); Mean Corpuscular Volume 88.3 fL (81-99); Mean Platelet Vol. 10.2 fl (6.2-12.0); Platelet Count 172 K/mm3 (150-450); RBC Distribution Width CV 15.2 % (11.6-14.6); RBC Distribution Width SD 49.1 fl (35.1-43.9); Red Blood Count 3.33 M/mm3 (4.2-5.4); White Blood Count 8.4 K/mm3 (4.4-11.0)
[2020-10-05 06:51] LABS: Bedside Glucose 128 mg/dL (70-110)
[2020-10-05 07:06] LABS: Anion Gap 4 (5-15); BUN 17 mg/dL (7-18); BUN/Creat Ratio 28.9 RATIO (10-20); Calcium,Total 8.6 mg/dL (8.5-10.1); Chloride 104 mmol/L (98-107); Creatinine, Serum 0.59 mg/dL (0.55-1.02); EST Glomerular Filtration Rate 108 mL/min (>60); Est Glom Filt Rate - Afr Amer 131 mL/min (>60); Estimated Creatinine Clearance 51.11 ml/min; Glucose 127 mg/dL (74-106); Potassium 3.4 mmol/L (3.5-5.1); Sodium Level 141 mmol/L (136-145)
--- NOTE | 2020-10-05 07:57 | NURSING ---
Wound VAC dressing intact with good seal noted at 150mmHg low continuous suction. will discuss with social group worker before changing dressing today in case patient gets discharged back to residential today.
[2020-10-05 08:03] VITALS: BP 106/50; PULSE 90; RESP 18; TEMP 38.2; O2SAT 94
[2020-10-05] MEDS: Lactated Ringers 1,000 ML 60 ML IV ×2 (08:19→22:47)
[2020-10-05] MEDS: Acetaminophen 500 MG Tablet 1000 MG PO (08:20)
[2020-10-05 10:43] VITALS: TEMP 37.4
[2020-10-05] MEDS: metFORMIN (XR) 500 MG Tablet PO (10:45)
[2020-10-05] MEDS: Iron Polysaccharide Complex 150 MG CAPSULE PO (10:45)
[2020-10-05] MEDS: Docusate Sodium 100 MG Capsule PO ×2 (10:46→22:33)
[2020-10-05] MEDS: Ascorbic Acid 500 MG Tablet PO ×2 (10:46→17:39)
[2020-10-05] MEDS: Furosemide 40 MG Tablet PO (10:46)
[2020-10-05] MEDS: Enoxaparin 40 MG/0.4 ML Syringe SC (10:46)
[2020-10-05] MEDS: Potassium Chloride Oral Tablet 20 MEQ PO ×3 (10:46→17:39)
[2020-10-05] MEDS: Atenolol 50 MG Tablet PO (10:47)
[2020-10-05] MEDS: Nystatin Powder 15gm Bottle 1 APPLIC TOPICAL ×2 (10:47→22:33)
[2020-10-05] MEDS: Polyethylene Glycol 3350 17 GM PACKET PO (10:47)
[2020-10-05] MEDS: Famotidine 20 MG Tablet PO ×2 (10:47→22:33)
--- NOTE | 2020-10-05 11:36 | PN.HOSP_ITS ---
Subjective Subjective Patient seen and examined. SHe was drowsy and had no complaints. Review of systems is otherwise negative. She has a mild fever this morning of 99.3F. Review of systems is otherwise negative. Objective Data Objective Data Vital Signs: Vital Signs Temp Pulse Resp BP Pulse Ox 99.3 F H 90 18 106/50 L 94 10/05/20 10:43 10/05/20 08:03 10/05/20 08:03 10/05/20 08:03 10/05/20 08:03 Oxygen Flow Rate (L/min) 2 Oxygen Delivery Method Nasal Cannula Weight: 321 lb 13.998 oz Body Mass Index (BMI) 51.1 Intake & Output: Intake and Output for Last 24 Hours 10/03/20 10/04/20 10/05/20 23:59 23:59 23:59 Intake Total 3612 / 3612 2207.53 / 2207.53 1468 / 1468 Output Total 1125 / 1125 2150 / 2150 1600 / 1600 Balance 2487 / 2487 57.53 / 57.53 -132 / -132 Lab / Micro Data Result Diagrams: 10/05/20 06:20 10/05/20 06:20 Labs: Laboratory Results - last 24 hr 10/04/20 16:29: POC Glucose 112 H 10/04/20 22:00: POC Glucose 96 10/05/20 06:20: WBC 8.4, RBC 3.33 L, Hgb 9.1 L, Hct 29.4 L, MCV 88.3, MCH 27.3, MCHC 31.0 L, RDW Std Deviation 49.1 H, RDW Coeff of Dayo 15.2 H, Plt Count 172, MPV 10.2 10/05/20 06:20: Sodium 141, Potassium 3.4 L, Chloride 104, Carbon Dioxide 33.0 H , Anion Gap 4 L, BUN 17, Creatinine 0.59, Estim Creat Clear Calc 51.11, Est GFR (MDRD) Af Amer 131, Est GFR (MDRD) Non-Af 108, BUN/Creatinine Ratio 28.9 H, Glucose 127 H, Calcium 8.6 10/05/20 06:37: POC Glucose 128 H Micro: Microbiology 10/02/20 Unknown Tissue - Sacral Gram Stain - Final 10/02/20 Unknown Tissue - Sacral Wound Culture - Final Pseudomonas aeroginosa 10/02/20 Unknown Tissue - Sacral Anaerobic Culture - Preliminary No growth in 48 hours. 10/02/20 Unknown Bone - Sacral Bone Gram Stain - Final 10/02/20 Unknown Bone - Sacral Bone Wound Culture - Preliminary No growth-Final to follow 10/02/20 Unknown Bone - Sacral Bone Anaerobic Culture - Preliminary No growth in 48 hours. Physical Exam Const Constitutional Narrative: drowsy Exam Limitations: no limitations Nutritional Appearance: morbidly obese HEENT head/scalp atraumatic Head and Scalp: normocephalic Mouth: dry mucous membranes Eyes PERRL, EOMs intact bilaterally and conjunctivae normal Neck no lymphadenopathy Resp normal respiratory effort Resp Narrative: mildly diminished breath sounds bibasally, no wheezes or cr ackles. Cardio regular rate, regular rhythm, S1 normal heart sound, S2 normal heart sound and no murmurs GI normal to inspection, nondistended, normoactive bowel sounds, soft to palpation, non-tender and non-distended Extremity normal to inspection, full ROM and no clubbing, cyanosis or edema Peripheral Pulses: Yes pulses 2+ throughout Skin no rashes or lesions noted Neuro oriented x3, CN's II-XII intact bilaterally and moves all extremities Sensorium / Orientation: awake and alert Psych affect normal Assessment & Plan Assessment/Plan (1) Sacral decubitus ulcer, stage IV: (2) Cellulitis of trunk: (3) Osteomyelitis: QUALIFIERS: Osteomyelitis type: acute hematogenous Osteomyelitis location: other site Qualified Code(s): M86.08 - Acute hematogenous osteomyelitis, other sites PLAN: #Stage IV sacral decubitus ulcer and osteomyelitis * s/p excision and ostectomy * today is POD 3 * plastic surgery on board. * on IV vancomycin; unasyn switched to zosyn due to culture results. * has PICC line in place * wound cultures growing Pseudomonas. * * #Hypokalemia: K is 3.4. Will replace and trend # #Type 2 diabetes mellitus * on metformin. ISS. Accuchecks ACHS * #Anemia * chronic. hb is 9.1. Will trend. * #Functional paraplegia * PT/.OT on board. Fall precautions * * #Super morbid obesity * BMI is 51. Complicates acute care, recovery and expected prognosis * #DVT prophylaxis: lovenox. Disposition: awaiting placement. Charges/Coding Visit Charges Inpatient E&M: 46766 Subs Hosp L3
[2020-10-05 12:11] LABS: Bedside Glucose 125 mg/dL (70-110)
--- NOTE | 2020-10-05 12:37 | CASEMGMT ---
Social Work Note SW faxed updated clinicals to [facility]. Plan: Return to [facility] when medically cleared Nida Zhou MONORAIL HELPER, GROUP SALES REPRESENTATIVE
[2020-10-05] MEDS: Ferrous Sulfate 325 MG Tablet PO ×2 (12:40→17:38)
--- NOTE | 2020-10-05 13:45 | RAD_ITS ---
STUDY: X-RAY CHEST REASON FOR EXAM: Female, 65 years old. Fever. Shortness of breath. TECHNIQUE: Single AP portable view of the chest. COMPARISON: None. FINDINGS: A right-sided PICC line catheter is seen with the tip at the junction of the superior vena cava and right atrium. The lungs are clear and expanded. There is no demonstrated pleural abnormality. There is borderline cardiomegaly. Normal mediastinum and sammy. Normal visualized pulmonary arteries. Normal visualized aortic arch and descending thoracic aorta. Normal visualized thoracic spine. Normal visualized ribs, clavicles, and shoulders. There is no demonstrated abnormality of the visualized soft tissue structures of the upper abdomen. RAD/Chest 1 View (Portable) IMPRESSION: Borderline cardiomegaly. The lungs are clear. Electronically Signed: Brett Hardy MD at 14:07 EDT , Service support ,
[2020-10-05 14:00] VITALS: BP 116/57; PULSE 70; RESP 20; TEMP 36.6; O2SAT 95
--- NOTE | 2020-10-05 15:00 | NURSING ---
Had talked with Dr Miller. plan is to [facility] pt [facility] to [facility] tomorrow if no further fevers noted. wound VAC was applied on Monday10/03/20 so will leave dressing in place and remove prior to pt going to [facility]. If pt stays in the hospital, VAC dressing will be changed tomorrow.
[2020-10-05 15:20] VITALS: O2SAT 95
[2020-10-05 15:57] LABS: Bacteria 0 SEEN /hpf (None Seen); Mucous, Urine 0 SEEN /hpf (<or=2+); Red Blood Cells-Urine 0 SEEN /hpf (0-5)
[2020-10-05 16:00] LABS: Color, Urine Yellow (Yellow); Glucose, Dipstick Normal (Normal); Ketone-Dipstick Negative (Negative); Leukocyte Esterase-Dipstick 500 /ul (Negative); Nitrite-Dipstick Negative (Negative); Occult Blood-Urine Negative /ul (Negative); Protein-Dipstick Negative (Negative); Specific Gravity, Urine 1.015 (1.002-1.030); Urine Bilirubin Dipstick Negative (Negative); Urine Clarity Clear (Clear); Urine Urobilinogen Normal (Normal)
[2020-10-05 16:05] LABS: Squamous Epithelial Cells - UA 0-5 SEEN /hpf (5-10); White Blood Cells 0-5 SEEN /hpf (0-5)
[2020-10-05 17:05] LABS: Bedside Glucose 114 mg/dL (70-110)
--- NOTE | 2020-10-05 21:48 | PN.SURG_ITS ---
Subjective Subjective Postop #3 Neck spasm continues to improve slowly. Will include the muscle relaxants in the transfer summary. Objective Data Objective Data Vital Signs: Vital Signs Temp Pulse Resp BP Pulse Ox 97.8 F 70 20 H 116/57 L 95 10/05/20 14:00 10/05/20 14:00 10/05/20 14:00 10/05/20 14:00 10/05/20 15:20 100.7 F 10/05/20 8:03 Oxygen Flow Rate (L/min) 95 Oxygen Delivery Method Room Air Weight: 321 lb 13.998 oz Body Mass Index (BMI) 51.1 Intake & Output: Intake and Output for Last 24 Hours 10/03/20 10/04/20 10/05/20 23:59 23:59 23:59 Intake Total 3612 / 3612 2207.53 / 2207.53 2048 / 2048 Output Total 1125 / 1125 2150 / 2150 2260 / 2260 Balance 2487 / 2487 57.53 / 57.53 -212 / -212 Lab / Micro Data Attestation: I reviewed the patient's lab results. Result Diagrams: 10/06/20 08:10 10/06/20 06:50 Labs: Laboratory Results - last 24 hr 10/04/20 22:00: POC Glucose 96 10/05/20 06:20: WBC 8.4, RBC 3.33 L, Hgb 9.1 L, Hct 29.4 L, MCV 88.3, MCH 27.3, MCHC 31.0 L, RDW Std Deviation 49.1 H, RDW Coeff of Dayo 15.2 H, Plt Count 172, MPV 10.2 10/05/20 06:20: Sodium 141, Potassium 3.4 L, Chloride 104, Carbon Dioxide 33.0 H , Anion Gap 4 L, BUN 17, Creatinine 0.59, Estim Creat Clear Calc 51.11, Est GFR (MDRD) Af Amer 131, Est GFR (MDRD) Non-Af 108, BUN/Creatinine Ratio 28.9 H, Glucose 127 H, Calcium 8.6 10/05/20 06:37: POC Glucose 128 H 10/05/20 12:06: POC Glucose 125 H 10/05/20 15:38: Urine Color Yellow, Urine Clarity Clear, Urine pH 5.0, Ur Specific [place] 1.015, Urine Protein Negative, Urine Glucose (UA) Normal, Urine Ketones Negative, Urine Occult Blood Negative, Urine Nitrite Negative, Urine Bilirubin Negative, Urine Urobilinogen Normal, Ur Leukocyte Esterase 500 H, Urine RBC 0 SEEN, Urine WBC 0-5 SEEN, Ur Squamous Epith Cells 0-5 SEEN, Urine Bacteria 0 SEEN, Urine Mucus 0 SEEN 10/05/20 16:54: POC Glucose 114 H Micro: Microbiology 10/02/20 Unknown Bone - Sacral Bone Gram Stain - Final 10/02/20 Unknown Bone - Sacral Bone Wound Culture - Preliminary No growth-Final to follow 10/02/20 Unknown Bone - Sacral Bone Anaerobic Culture - Preliminary No growth in 48 hours. 10/02/20 Unknown Tissue - Sacral Gram Stain - Final 10/02/20 Unknown Tissue - Sacral Wound Culture - Final Pseudomonas aeroginosa 10/02/20 Unknown Tissue - Sacral Anaerobic Culture - Preliminary No growth in 48 hours. Radiography Diagnostic Testing: Radiology Impression Chest X-Ray 10/05/20 13:45 IMPRESSION: Borderline cardiomegaly. The lungs are clear. Electronically Signed: Brett Hardy MD at 14:07 EDT , Service support , Physical Exam Narrative General - Alert and Oriented HEENT - PERRL. EOMI. Neck - Supple. Some tenderness over the neck muscles. A little better. Lungs - Clear to auscultation. Abdomen - Soft and nondistended. Lower Back and Sacral area - Right sacral pressure sore wound is stable. VAC in place. Minimal drainage in the canister. Neuro - CN II-XII grossly intact. Psych - Normal mood and affect. 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 VAC in place. Minimal drainage in the canister. Patient complains of neck pain and spasm. A little better. Explained to the patient that it is probably due to positioning in surgery as she was in the prone position. It should resolve with time and with a muscle relaxant. She is on Cyclobenzaprine and Valium. Operative cultures show Pseudomonas aeroginosa in the soft tissue. On Vancomycin and Zosyn. Pathology is pending. Her Hgb is stable at 9.1 slightly lower at 9.2 from yesterday. She has anemia of chronic disease. There is no clinical evidence of ongoing bleeding. There was 250 ml of operative blood loss which is expected. Continue Iron supplementation. She had a fever of 100.7 this morning. Chest X-ray was clear. Urinalysis was normal. If she stays afebrile for 24 hours, then return to the [facility].
[2020-10-05 22:25] VITALS: BP 118/57; PULSE 69; RESP 17; TEMP 36.9; O2SAT 95
[2020-10-05] MEDS: Atorvastatin Calcium 40 MG Tablet PO (22:33)
[2020-10-05 22:46] LABS: Bedside Glucose 137 mg/dL (70-110)
[2020-10-06] VITALS (8 sets, daily range): BP systolic 108–140; BP diastolic 48–56; PULSE 68–75; RESP 15–20; TEMP 37.1–37.4; O2SAT 87–97
[2020-10-06] MEDS: oxyCODONE 5 MG Tablet 10 MG PO ×3 (03:03→21:13)
[2020-10-06] MEDS: Gabapentin 600 MG Tablet PO ×3 (06:48→21:16)
[2020-10-06 06:56] LABS: Bedside Glucose 112 mg/dL (70-110)
[2020-10-06] MEDS: cycloBENZAPRine HCl 5 MG TABLET PO (07:00)
[2020-10-06 07:48] LABS: Anion Gap 3 (5-15); BUN 19 mg/dL (7-18); BUN/Creat Ratio 33.6 RATIO (10-20); Calcium,Total 8.4 mg/dL (8.5-10.1); Chloride 102 mmol/L (98-107); Creatinine, Serum 0.56 mg/dL (0.55-1.02); EST Glomerular Filtration Rate 114 mL/min (>60); Est Glom Filt Rate - Afr Amer 137 mL/min (>60); Estimated Creatinine Clearance 51.11 ml/min; Glucose 114 mg/dL (74-106); Potassium 3.2 mmol/L (3.5-5.1); Sodium Level 138 mmol/L (136-145)
[2020-10-06] MEDS: Furosemide 40 MG Tablet PO (08:12)
[2020-10-06] MEDS: Enoxaparin 40 MG/0.4 ML Syringe SC (08:12)
[2020-10-06] MEDS: Polyethylene Glycol 3350 17 GM PACKET PO (08:12)
[2020-10-06] MEDS: Potassium Chloride Oral Tablet 20 MEQ PO ×3 (08:14→17:26)
[2020-10-06] MEDS: Iron Polysaccharide Complex 150 MG CAPSULE PO (08:14)
[2020-10-06] MEDS: 0.9% Saline Lock 10 ML Syringe IV (08:15)
[2020-10-06] MEDS: metFORMIN (XR) 500 MG Tablet PO (08:16)
[2020-10-06] MEDS: Nystatin Powder 15gm Bottle 1 APPLIC TOPICAL ×2 (08:16→21:13)
[2020-10-06] MEDS: Ascorbic Acid 500 MG Tablet PO ×2 (08:17→17:26)
[2020-10-06] MEDS: Docusate Sodium 100 MG Capsule PO ×2 (08:17→21:15)
[2020-10-06] MEDS: Famotidine 20 MG Tablet PO ×2 (08:17→21:15)
[2020-10-06] MEDS: Atenolol 50 MG Tablet PO (08:18)
[2020-10-06 08:20] LABS: Hematocrit 29.2 % (37-47); Hemoglobin 9.2 g/dL (12.0-15.0); Mean Corp Hgb Conc 31.5 g/dL (32-36); Mean Corpuscular Hgb 27.4 pg (27.0-32.0); Mean Corpuscular Volume 86.9 fL (81-99); Platelet Count 173 K/mm3 (150-450); RBC Distribution Width CV 14.7 % (11.6-14.6); RBC Distribution Width SD 46.7 fl (35.1-43.9); Red Blood Count 3.36 M/mm3 (4.2-5.4); White Blood Count 9.1 K/mm3 (4.4-11.0)
[2020-10-06] MEDS: diazePAM 5 MG Tablet PO (08:30)
[2020-10-06] MEDS: BENZOCAINE/MENTHOL 1 LOZENGE MUCOUS MEM (08:31)
--- NOTE | 2020-10-06 09:38 | NURSING ---
wound photo: right sacrum
[2020-10-06] MEDS: Ferrous Sulfate 325 MG Tablet PO ×2 (11:41→17:26)
[2020-10-06 11:55] LABS: Bedside Glucose 127 mg/dL (70-110)
--- NOTE | 2020-10-06 13:15 | CASEMGMT ---
Addendum entered by Nida Zhou 10/06/20 16:09: CJ received call from Mirta at [facility] inquiring if pt is still returning today. CJ informed pt that the last time this worker was updated was that yes pt will return to [facility] today. CJ informed Mirta that pt could still discharge later this evening. Mirta states she is leaving at 4:30pm, requests paperwork be faxed to [phone]. CJ updated green sheet with fax number. Original Note: Social Work Note Pt to discharge back to [facility] today. CJ placed a call to Mirta in admissions at [facility] and updated her that pt will likely discharge back to [facility] today. Mirta confirms she needs a COVID test. Plan: Return to [facility] skilled today Nida Zhou PRISON KEEPER, WATER RESOURCE MANAGER
--- NOTE | 2020-10-06 13:31 | PN.SURG_ITS ---
Subjective Subjective Postop #4 Patient's neck spasm continue to slowly get better with the medication. Objective Data Objective Data Vital Signs: Vital Signs Temp Pulse Resp BP Pulse Ox 99.3 F H 75 16 140/48 H 92 10/06/20 08:34 10/06/20 08:34 10/06/20 08:34 10/06/20 08:34 10/06/20 10:03 Oxygen Flow Rate (L/min) 2 Oxygen Delivery Method Nasal Cannula Weight: 321 lb 13.998 oz Body Mass Index (BMI) 51.1 Intake & Output: Intake and Output for Last 24 Hours 10/04/20 10/05/20 10/06/20 23:59 23:59 23:59 Intake Total 2207.53 / 2207.53 2916 / 2916 1300 / 1300 Output Total 2150 / 2150 2260 / 2260 900 / 900 Balance 57.53 / 57.53 656 / 656 400 / 400 Lab / Micro Data Attestation: I reviewed the patient's lab results. Result Diagrams: 10/06/20 08:10 10/06/20 06:50 Labs: Laboratory Results - last 24 hr 10/05/20 15:38: Urine Color Yellow, Urine Clarity Clear, Urine pH 5.0, Ur Specific [place] 1.015, Urine Protein Negative, Urine Glucose (UA) Normal, Urine Ketones Negative, Urine Occult Blood Negative, Urine Nitrite Negative, Urine Bilirubin Negative, Urine Urobilinogen Normal, Ur Leukocyte Esterase 500 H, Urine RBC 0 SEEN, Urine WBC 0-5 SEEN, Ur Squamous Epith Cells 0-5 SEEN, Urine Bacteria 0 SEEN, Urine Mucus 0 SEEN 10/05/20 16:54: POC Glucose 114 H 10/05/20 22:29: POC Glucose 137 H 10/06/20 06:50: Sodium 138, Potassium 3.2 L, Chloride 102, Carbon Dioxide 33.0 H , Anion Gap 3 L, BUN 19 H, Creatinine 0.56, Estim Creat Clear Calc 51.11, Est GFR (MDRD) Af Amer 137, Est GFR (MDRD) Non-Af 114, BUN/Creatinine Ratio 33.6 H, Glucose 114 H, Calcium 8.4 L 10/06/20 06:52: POC Glucose 112 H 10/06/20 08:10: WBC 9.1, RBC 3.36 L, Hgb 9.2 L, Hct 29.2 L, MCV 86.9, MCH 27.4, MCHC 31.5 L, RDW Std Deviation 46.7 H, RDW Coeff of Dayo 14.7 H, Plt Count 173, MPV 10.0 10/06/20 11:42: POC Glucose 127 H Micro: Microbiology 10/06/20 08:25 Mucosa - Nasopharyngeal SARS-CoV-2 Antigen (Rapid) - Final 10/02/20 Unknown Bone - Sacral Bone Gram Stain - Final 10/02/20 Unknown Bone - Sacral Bone Wound Culture - Preliminary Sphingomonas paucimobilis 10/02/20 Unknown Bone - Sacral Bone Anaerobic Culture - Preliminary No growth in 48 hours. 10/02/20 Unknown Tissue - Sacral Gram Stain - Final 10/02/20 Unknown Tissue - Sacral Wound Culture - Final Pseudomonas aeroginosa 10/02/20 Unknown Tissue - Sacral Anaerobic Culture - Preliminary No growth in 48 hours. Radiography Diagnostic Testing: Radiology Impression Chest X-Ray 10/05/20 13:45 IMPRESSION: Borderline cardiomegaly. The lungs are clear. Electronically Signed: Brett Hardy MD at 14:07 EDT , Service support , Physical Exam Narrative General - Alert and Oriented HEENT - PERRL. EOMI. Neck - Supple. Some tenderness over the neck muscles. A little better. Lungs - Clear to auscultation. Abdomen - Soft and nondistended. Lower Back and Sacral area - Right sacral pressure sore wound is stable. VAC changed today. Neuro - CN II-XII grossly intact. Psych - Normal mood and affect. 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 VAC was changed today. Patient complains of neck pain and spasm. A little better. Explained to the patient that it is probably due to positioning in surgery as she was in the prone position. It should resolve with time and with a muscle relaxant. She is on Cyclobenzaprine and Valium. Operative cultures show Pseudomonas aeroginosa in the soft tissue and Sphingomonas paucibilis. On Vancomycin and Zosyn. Pathology is pending. Her Hgb is stable at 9.2 up slightly from 9.1 yesterday. She has anemia of chronic disease. There is no clinical evidence of ongoing bleeding. There was 250 ml of operative blood loss which is expected. Continue Iron supplementation. She is afebrile. Her postoperative fever has resolved. Chest X-ray was clear. Urinalysis was normal. Tentative discharge to [facility]CF.
[2020-10-06] MEDS: Acetaminophen 500 MG Tablet 1000 MG PO (14:40)
[2020-10-06] MEDS: Bisacodyl 10 MG Suppository RC (14:55)
--- NOTE | 2020-10-06 16:25 | PN.HOSP_ITS ---
Documented by User: Dr. Heather Myers MD 10/06/20 16:32 Subjective Subjective Patient seen and examined. She complained of feeling lethargic and said her pain wasnt well controlled. Review of systems is otherwise negative. SHe says she thinks she developed the sacral decubitus ulcer because she was on the ground for 17 hours since she couldnt get up; she is therefore worried that she may have a neurological problem and excellent neurology consult. I did advise patient that he had had the decubitus ulcer for over a year and so this probably was not a new problem that could arise from her falling on the ground recently. There was no acute need for neurology consult and she could follow-up with him on outpatient basis. She has otherwise remained hemodynamically stable. Objective Data Objective Data Vital Signs: Vital Signs Temp Pulse Resp BP Pulse Ox 98.7 F 68 20 H 130/52 H 97 10/06/20 14:35 10/06/20 14:35 10/06/20 14:35 10/06/20 14:35 10/06/20 14:35 Oxygen Flow Rate (L/min) 1 Oxygen Delivery Method Nasal Cannula Weight: 321 lb 13.998 oz Body Mass Index (BMI) 51.1 Intake & Output: Intake and Output for Last 24 Hours 10/04/20 10/05/20 10/06/20 23:59 23:59 23:59 Intake Total 2207.53 / 2207.53 2916 / 2916 1300 / 1300 Output Total 2150 / 2150 2260 / 2260 900 / 900 Balance 57.53 / 57.53 656 / 656 400 / 400 Lab / Micro Data Result Diagrams: 10/06/20 08:10 10/06/20 06:50 Labs: Laboratory Results - last 24 hr 10/05/20 16:54: POC Glucose 114 H 10/05/20 22:29: POC Glucose 137 H 10/06/20 06:50: Sodium 138, Potassium 3.2 L, Chloride 102, Carbon Dioxide 33.0 H , Anion Gap 3 L, BUN 19 H, Creatinine 0.56, Estim Creat Clear Calc 51.11, Est GFR (MDRD) Af Amer 137, Est GFR (MDRD) Non-Af 114, BUN/Creatinine Ratio 33.6 H, Glucose 114 H, Calcium 8.4 L 10/06/20 06:52: POC Glucose 112 H 10/06/20 08:10: WBC 9.1, RBC 3.36 L, Hgb 9.2 L, Hct 29.2 L, MCV 86.9, MCH 27.4, MCHC 31.5 L, RDW Std Deviation 46.7 H, RDW Coeff of Dayo 14.7 H, Plt Count 173, MPV 10.0 10/06/20 11:42: POC Glucose 127 H Micro: Microbiology 10/06/20 08:25 Mucosa - Nasopharyngeal SARS-CoV-2 Antigen (Rapid) - Final 10/02/20 Unknown Bone - Sacral Bone Gram Stain - Final 10/02/20 Unknown Bone - Sacral Bone Wound Culture - Preliminary Sphingomonas paucimobilis 10/02/20 Unknown Bone - Sacral Bone Anaerobic Culture - Preliminary No growth in 48 hours. 10/02/20 Unknown Tissue - Sacral Gram Stain - Final 10/02/20 Unknown Tissue - Sacral Wound Culture - Final Pseudomonas aeroginosa 10/02/20 Unknown Tissue - Sacral Anaerobic Culture - Preliminary No growth in 48 hours. Physical Exam Const alert and oriented x3 Constitutional Narrative: drowsy Exam Limitations: no limitations Nutritional Appearance: morbidly obese HEENT head/scalp atraumatic Head and Scalp: normocephalic Mouth: dry mucous membranes Eyes PERRL, EOMs intact bilaterally and conjunctivae normal Neck no lymphadenopathy Neck Narrative: +posterior paraspinal muscle tenderness. Resp Resp Narrative: mildly diminished breath sounds bibasally, no wheezes or crackles. on 1L of oxygen. Cardio regular rate, regular rhythm, S1 normal heart sound, S2 normal heart sound and no murmurs GI normal to inspection, nondistended, normoactive bowel sounds, soft to palpation, non-tender and non-distended Extremity normal to inspection, full ROM and no clubbing, cyanosis or edema Peripheral Pulses: Yes pulses 2+ throughout Neuro oriented x3, CN's II-XII intact bilaterally and moves all extremities Sensorium / Orientation: awake and alert Psych affect normal Assessment & Plan Assessment/Plan (1) Sacral decubitus ulcer, stage IV: (2) Cellulitis of trunk: (3) Osteomyelitis: QUALIFIERS: Osteomyelitis location: other site Osteomyelitis type: acute hematogenous Qualified Code(s): M86.08 - Acute hematogenous osteomyelitis, other sites PLAN: #Stage IV sacral decubitus ulcer and osteomyelitis * s/p excision and ostectomy * today is POD 4 * plastic surgery on board. * on IV vancomycin and zosyn. * has PICC line in place * wound cultures growing Pseudomonas. * * #Hypokalemia: K is 3.2 today. Will replace and trend. # #Type 2 diabetes mellitus * on metformin. ISS. Accuchecks ACHS * #Anemia * chronic. hb is 9.2. Will trend. * #Functional paraplegia * PT/.OT on board. Fall precautions * #Super morbid obesity * BMI is 51. Complicates acute care, recovery and expected prognosis * #DVT prophylaxis: lovenox. Disposition: awaiting placement. Charges/Coding Visit Charges Inpatient E&M: 11065 Subs Hosp L2 Documented by User: Dr. Joaquin Miller MD 10/07/20 23:38 Objective Data Lab / Micro Data Result Diagrams: 10/06/20 08:10 10/06/20 06:50
--- NOTE | 2020-10-06 16:56 | PCM.TXEXTCAR ---
Diet 10/02/20 13:07 Diet: Carbohydrate Controlled Dietary Modifications:: Cardiac / Heart Healthy Routine Orders/Code Status Suppository Type: Dulcolax 10mg Suppository Frequency: Daily PRN Mckeon Catheter Size: 16 Change Mckeon Catheter: monthly and prn O2 Liters per Minute: 2 liters nasal cannula Keep PO Greater than or Equal to (%): 90 Routine Lab Work: CBC (weekly and check labs weekly (CBC). ), BMP (weekly and check labs weekly (BMP)) and - (Prealbumin weekly and check labs weekly. Vancomycin Trough weekly and check labs weekly. Pharmacy to dose the Vancomycin. Fax lab results to [facility] [phone] and to my office [phone].) Code Status: Full Code Wound(s) LOW BACK/SACRUM: Wound Type: Surgical Incision Dressing Change: VAC at 150mmHg continuous suction to be changed three times per week. LEFT GREATER TOENAIL: Wound Type: TOENAIL SACRUM: Wound Type: Pressure Injury Dressing Change: Wet to Dry Dressing Suggestions for Active Care Change Position every (hours): 2 Hours to sit in a chair: 0 Times a day to sit in chair: 0 Therapies Weight Bearing: Non weight bearing Extremity Affected:: Bilateral Lower Physical Therapy: Eval and Treat Problem/Diagnosis (1) Sacral decubitus ulcer, stage IV: Status: Acute (2) Osteomyelitis: Status: Acute (3) Diabetes: Status: Chronic (4) Anemia of chronic disease: Status: Chronic (5) Neck muscle spasm: Status: Acute (6) Postoperative fever: Status: Acute (7) Morbid obesity with BMI of 60.0-69.9, adult: Status: Acute Allergies/Procedures Done in Hospital Allergies doxycycline Allergy (Verified 10/02/20 08:39) PT UNSURE OF REACTION Procedures: Wound Vac placement and - (Surgery 10/02/20 - Excision right sacral pressure sore, Stage IV, with partial ostectomy for osteomyelitis) Type of Care/Length of Stay Estimated LOS: More Than 30 Days Type of Care Needed: Skilled Rehab Potential: Fair Prognosis: Fair Additional Orders/Day of Discharge Day of Discharge: 10/06/20 Dietary and Speech Recommendations Dietitian Recommendations/Changes: Continue CHO Control/Cardiac diet and Charanjit BID Follow Up Care Please follow up with your Primary Care Physician in: 2-4 weeks. Evaluate anemia of chronic disease. Please Follow Up With: Angela When: 2-4 weeks at [facility] Center. Call [phone] for appt. Discharge Plan Admission Admit Date/Time: 10/02/20 12:14 Attending Provider: Heather Myers Primary Care Provider: Doug Razo Consulting Providers: Rasta Gottlieb Discharge Orders/Prescriptions Prescriptions: No Action acetaminophen 325 MG capsule 650 mg PO Q4H PRN PRN (Reason: PAIN OR TEMP) RF: 0 Lactobacillus acidophilus 1 EACH capsule 1 capsule PO BID RF: 0 furosemide 40 MG tablet 40 mg PO DAILY RF: 0 atorvastatin 40 MG tablet 40 mg PO DAILY RF: 0 gabapentin 600 MG tablet 600 mg PO TID RF: 0 loperamide 2 MG capsule 2 mg PO DAILY PRN (Reason: Diarrhea) RF: 0 polyethylene glycol 3350 17 GM packet 17 gm PO DAILY RF: 0 sertraline 100 MG tablet 175 mg PO DAILY RF: 0 potassium chloride 20 MEQ packet 20 meq PO TID RF: 0 famotidine 20 MG tablet 20 mg PO BID RF: 0 magnesium hydroxide 30 ML suspension 30 ml PO DAILY PRN PRN (Reason: Constipation) RF: 0 ascorbic acid (vitamin C) 500 MG tablet 500 mg PO BID RF: 0 meclizine 25 MG tablet 25 mg PO Q12H PRN (Reason: Nausea) RF: 0 bisacodyl 10 MG suppository 10 mg RECTAL DAILY PRN PRN (Reason: Constipation) RF: 0 diphenhydramine HCl 25 MG capsule 25 mg PO Q6H PRN (Reason: Itching) RF: 0 ferrous sulfate 325 MG tablet 325 mg PO BIDCM RF: 0 docusate sodium 100 MG capsule 100 mg PO DAILY PRN (Reason: Constipation) RF: 0 ergocalciferol (vitamin D2) 50,000 UNIT capsule 50,000 unit PO FR RF: 0 ondansetron 4 MG tablet 4 mg PO Q8H PRN PRN (Reason: Nausea) RF: 0 metformin 500 MG tablet extended release 24 hr 500 mg PO DAILY RF: 0 atenolol 50 MG tablet 50 mg PO DAILY RF: 0 [id number]-gkfzjfvwoclzs-varvabxl 1 EACH tablet 2 tablet PO BID PRN (Reason: Headache) RF: 0 cyclobenzaprine 5 MG tablet 5 mg PO DAILY RF: 0 acetaminophen [Tylenol Extra Strength] 500 mg Tablet 1,000 mg PO Q8 PRN (Reason: Pain) RF: 0 famotidine [Pepcid] 20 mg Tablet 20 mg PO TID RF: 0 vancomycin 1.25 gram Recon Soln 1.25 g IV Q18H RF: 0 Referrals / Follow Up: Doug Razo MD [Primary Care Provider] -
[2020-10-06] MEDS: Insulin Lispro 100 UNIT/ML INSULN.PEN SC (17:26)
[2020-10-06 17:36] LABS: Bedside Glucose 154 mg/dL (70-110)
[2020-10-06] MEDS: Lactated Ringers 1,000 ML 60 ML IV (17:46)
[2020-10-06] MEDS: Atorvastatin Calcium 40 MG Tablet PO (21:15)
[2020-10-07 01:24] VITALS: RESP 18
[2020-10-07 02:00] VITALS: BP 105/47; PULSE 76; RESP 18; TEMP 36.8; O2SAT 96
[2020-10-07] MEDS: levoFLOXacin 750 MG Tablet PO (06:12)
[2020-10-07] MEDS: Gabapentin 600 MG Tablet PO ×2 (06:12→13:35)
[2020-10-07] MEDS: cycloBENZAPRine HCl 5 MG TABLET PO (06:19)
[2020-10-07] MEDS: Acetaminophen 500 MG Tablet 1000 MG PO (06:19)
[2020-10-07 06:20] LABS: Bedside Glucose 125 mg/dL (70-110)
--- NOTE | 2020-10-07 07:18 | NURSING ---
Dressing changed by pelt dropper RN this am d/t patient having stool. Pt should be going back to the skilled nursing today. Will discuss plan with Dr Miller. Wound VAC to be reapplied at the skilled nursing today.
[2020-10-07 08:14] VITALS: O2SAT 95
[2020-10-07 08:16] VITALS: BP 104/58; PULSE 67; RESP 16; TEMP 37.1; O2SAT 99
[2020-10-07] MEDS: Iron Polysaccharide Complex 150 MG CAPSULE PO (08:32)
[2020-10-07] MEDS: Potassium Chloride Oral Tablet 20 MEQ PO ×2 (08:34→11:39)
[2020-10-07] MEDS: metFORMIN (XR) 500 MG Tablet PO (08:34)
[2020-10-07] MEDS: Furosemide 40 MG Tablet PO (08:35)
[2020-10-07] MEDS: Ascorbic Acid 500 MG Tablet PO (08:35)
[2020-10-07] MEDS: Nystatin Powder 15gm Bottle 1 APPLIC TOPICAL (08:36)
[2020-10-07] MEDS: Enoxaparin 40 MG/0.4 ML Syringe SC (08:36)
[2020-10-07] MEDS: Atenolol 50 MG Tablet PO (08:37)
[2020-10-07] MEDS: Famotidine 20 MG Tablet PO (08:37)
--- NOTE | 2020-10-07 11:21 | PN.HOSP_ITS ---
Subjective Subjective Patient seen and examined. She has no active complaints today. Review of systems is otherwise negative. She is for likely discharge today to SNF, per plastic surgery. She has remained hemodynamically stable. Objective Data Objective Data Vital Signs: Vital Signs Temp Pulse Resp BP Pulse Ox 98.7 F 67 16 104/58 L 99 10/07/20 08:16 10/07/20 08:16 10/07/20 08:16 10/07/20 08:16 10/07/20 08:16 Oxygen Flow Rate (L/min) 1 Oxygen Delivery Method Nasal Cannula Weight: 321 lb 13.998 oz Body Mass Index (BMI) 51.1 Intake & Output: Intake and Output for Last 24 Hours 10/05/20 10/06/20 10/07/20 23:59 23:59 23:59 Intake Total 2916 / 2916 2890 / 2890 50 / 50 Output Total 2260 / 2260 1750 / 1750 30 / 30 Balance 656 / 656 1140 / 1140 Lab / Micro Data Result Diagrams: 10/06/20 08:10 10/06/20 06:50 Labs: Laboratory Results - last 24 hr 10/06/20 11:42: POC Glucose 127 H 10/06/20 17:24: POC Glucose 154 H 10/07/20 06:15: POC Glucose 125 H Micro: Microbiology 10/02/20 Unknown Bone - Sacral Bone Gram Stain - Final 10/02/20 Unknown Bone - Sacral Bone Wound Culture - Final Sphingomonas paucimobilis 10/02/20 Unknown Bone - Sacral Bone Anaerobic Culture - Final No growth in 5 days. 10/02/20 Unknown Tissue - Sacral Gram Stain - Final 10/02/20 Unknown Tissue - Sacral Wound Culture - Final Pseudomonas aeroginosa 10/02/20 Unknown Tissue - Sacral Anaerobic Culture - Final No growth in 5 days. 10/06/20 08:25 Mucosa - Nasopharyngeal SARS-CoV-2 Antigen (Rapid) - Final Physical Exam Const alert and oriented x3 Constitutional Narrative: drowsy Exam Limitations: no limitations Nutritional Appearance: morbidly obese HEENT head/scalp atraumatic Head and Scalp: normocephalic Eyes PERRL, EOMs intact bilaterally and conjunctivae normal Neck no lymphadenopathy Resp normal respiratory effort, no retractions, no use of accessory muscles and clear to auscultation bilaterally Resp Narrative: mildly diminished breath sounds bibasally, no wheezes or crac kles. on 1L of oxygen. Cardio regular rate, regular rhythm, S1 normal heart sound, S2 normal heart sound and no murmurs GI normal to inspection, nondistended, normoactive bowel sounds, soft to palpation, non-tender and non-distended Extremity normal to inspection, full ROM and no clubbing, cyanosis or edema Peripheral Pulses: Yes pulses 2+ throughout Skin no rashes or lesions noted Neuro oriented x3, CN's II-XII intact bilaterally and moves all extremities Sensorium / Orientation: awake and alert Psych affect normal Assessment & Plan Assessment/Plan (1) Sacral decubitus ulcer, stage IV: (2) Cellulitis of trunk: (3) Osteomyelitis: QUALIFIERS: Osteomyelitis type: acute hematogenous Osteomyelitis location: other site Qualified Code(s): M86.08 - Acute hematogenous osteomyelitis, other sites PLAN: #Stage IV sacral decubitus ulcer and osteomyelitis * s/p excision and ostectomy * today is POD 5 * plastic surgery on board. * was on IV vancomycin and zosyn. Now on PO levofloxacin * has PICC line in place * wound cultures growing Pseudomonas. * * #Hypokalemia: resolved. # #Type 2 diabetes mellitus * on metformin. ISS. Accuchecks ACHS * #Anemia * chronic. stable * #Functional paraplegia * PT/.OT on board. Fall precautions * #Super morbid obesity * BMI is 51. Complicates acute care, recovery and expected prognosis * #DVT prophylaxis: lovenox. Disposition: awaiting placement. For likely DC today Charges/Coding Visit Charges Inpatient E&M: 88581 Subs Hosp L2
[2020-10-07] MEDS: Ferrous Sulfate 325 MG Tablet PO (11:39)
[2020-10-07] MEDS: Lactated Ringers 1,000 ML 60 ML IV (11:46)
[2020-10-07 12:01] LABS: Bedside Glucose 136 mg/dL (70-110)
--- NOTE | 2020-10-07 12:21 | CASEMGMT ---
Social Work Note SW received message from Mirta at [facility] requesting update on pt. Mirta Direct Number [phone]. SW placed a call to Mirta and updated her that pt should discharge today, orders are not in yet. Plan: [facility] Nida Zhou ELECTRICAL/INSTRUMENT TECHNICIAN, TYPE DISK QUALITY CONTROL SUPERVISOR
[2020-10-07 13:26] VITALS: BP 115/53; PULSE 70; RESP 16; TEMP 36.9; O2SAT 99
--- NOTE | 2020-10-07 16:01 | CASEMGMT ---
Social Work Note Pt is being discharged today. SW faxed completed discharge paperwork to [facility] including transfer to extended care facility, signed medication list, any scripts, and COVID tool/test. Original in SNF folder and copy on pt's chart. SW arranged transportation via cot through [facility] for 4:30pm. Transportation form completed and placed on SNF folder and copy on pt's chart. SW updated RN on transportation time. CJ placed a call to Mirta at [facility] and left message updating her on transportation time. SW updated pt on discharge and transportation time. Pt states understanding. Plan: Return to [facility] Skilled with [facility] transporting pt via cot at 4:30pm Nida Zhou MSW, OFFICE LEAD
--- NOTE | 2020-10-07 23:39 | PCM.DC.SUM ---
Providers Date of Admission: 10/02/20 Date of Discharge: 10/07/20 Primary Care Physician: Dr. Doug Razo MD Attending Physician: Dr. Heather Myers MD Consultations 10/02/20 13:07 Consult: Hospitalist Routine Consulting Provider: Rasta Gottlieb Reason for Consult: medical management EMERGENT Consult: No MD Notified: Yes Date Notified: 10/02/20 Time Notified: 14:12 Method of Notification: via spok text 10/05/20 06:32 Consult: Onc/Wound/assistant production manager Routine Comment: Reason for Consult:: vac sacrum Diagnosis Discharge Diagnosis (1) Sacral decubitus ulcer, stage IV: Status: Acute Code(s): L89.154 - Pressure ulcer of sacral region, stage 4 (2) Osteomyelitis: Status: Acute Code(s): M86.9 - Osteomyelitis, unspecified Qualifiers: Osteomyelitis location: other site Osteomyelitis type: acute hematogenous Qualified Code(s): M86.08 - Acute hematogenous osteomyelitis, other sites (3) Diabetes: Status: Chronic Code(s): E11.9 - Type 2 diabetes mellitus without complications Qualifiers: Diabetes mellitus complication detail: with other circulatory complications Diabetes mellitus complication status: with circulatory complication Diabetes mellitus shelter insulin use: without shelter use Diabetes mellitus type: due to underlying condition Qualified Code(s): E08.59 - Diabetes mellitus due to underlying condition with other circulatory complications (4) Anemia of chronic disease: Status: Chronic Code(s): D63.8 - Anemia in other chronic diseases classified elsewhere (5) Neck muscle spasm: Status: Resolved Code(s): M62.838 - Other muscle spasm (6) Postoperative fever: Status: Resolved Code(s): R50.82 - Postprocedural fever (7) Morbid obesity with BMI of 60.0-69.9, adult: Status: Acute Code(s): E66.01 - Morbid (severe) obesity due to excess calories; Z68.44 - Body mass index [BMI] 60.0-69.9, adult (8) Pseudomonas aeruginosa infection: Status: Acute Code(s): A49.8 - Other bacterial infections of unspecified site Medications at Discharge Home Medications Lactobacillus acidophilus 1 capsule PO BID 06/03/20 acetaminophen 650 mg PO Q4H PRN PRN 06/03/20 ascorbic acid (vitamin C) 500 mg PO BID 06/03/20 rkdjfga-fpdnaqbuhjvjv-aisduuqp 2 tablet PO BID PRN 06/03/20 atenolol 50 mg PO DAILY 06/03/20 atorvastatin 40 mg PO DAILY 06/03/20 bisacodyl 10 mg RECTAL DAILY PRN PRN 06/03/20 cyclobenzaprine 5 mg PO DAILY 06/03/20 diphenhydramine HCl 25 mg PO Q6H PRN 06/03/20 docusate sodium 100 mg PO DAILY PRN 06/03/20 ergocalciferol (vitamin D2) 50,000 unit PO FR 06/03/20 famotidine 20 mg PO BID 06/03/20 ferrous sulfate 325 mg PO BIDCM 06/03/20 furosemide 40 mg PO DAILY 06/03/20 gabapentin 600 mg PO TID 06/03/20 loperamide 2 mg PO DAILY PRN 06/03/20 magnesium hydroxide 30 ml PO DAILY PRN PRN 06/03/20 meclizine 25 mg PO Q12H PRN 06/03/20 metformin 500 mg PO DAILY 06/03/20 ondansetron 4 mg PO Q8H PRN PRN 06/03/20 polyethylene glycol 3350 17 gm PO DAILY 06/03/20 potassium chloride 20 meq PO TID 06/03/20 sertraline 175 mg PO DAILY 06/03/20 acetaminophen [Tylenol Extra Strength] 1,000 mg PO Q8 PRN 09/28/20 famotidine [Pepcid] 20 mg PO TID 09/28/20 vancomycin 1.25 g IV Q18H 09/28/20 baxhu-apmj-DpWSV-zqzuqa-gy-isn [Charanjit (with collagen)] 1 packet PO BIDCM 60 Days #120 ea 10/07/20 diazepam [Valium] 5 mg PO TID PRN PRN 7 Days #21 tab 10/07/20 levofloxacin 750 mg PO DAILY@0600 21 Days #21 tab 10/07/20 oxycodone-acetaminophen [Percocet] 1 tab PO 4X/DAY PRN PRN 7 Days #28 tab 10/07/20 polysaccharide iron complex [Ferrex 150] 150 mg PO DAILYCM 90 Days #90 cap 10/07/20 Hospital Course Operations - (10/02/20 - Excision right sacral pressure sore, Stage IV, with partial ostectomy for osteomyelitis.) Procedures Wound vac placement Summary of Care Provided Minutes Spent on Discharge: 35 Hospital Course: 65-year-old white obese nonambulatory female with a history of diabetes mellitus came to the [facility] because of a right sacral pressure sore. She developed the pressure sore when she fell last year and was not found for almost 20 hours. She had laid on her back and her legs were caught underneath her body. She developed a gangrene left heel that is now healed but has not walked since. Has developed neuropathies and drop foot. Wound care is with Hydrofera Blue. This is keeping the pressure sore clean and no odor. Today she denies fever. Her appetite is ok. Encourage nutritional supplementation with protein to help the healing process. CT Pelvis was done on 08/12/20. It showed sacral decubitus ulcer with osteomyelitis of the right sacral ala. A wound culture was done on 07/20/20. It showed Streptococcus agalactiae (B), Staphylococcus capitis, Corynebacterium striatum, Anaerobic cocci, and Bacteroides fragilis. She was treated with Augmentin. Patient was taken to surgery on 10/02/20 where she underwent excision right sacral pressure sore, Stage IV, with partial ostectomy for osteomyelitis. She tolerated the procedure well. Hospitalist Group was consulted for medical management. On the first postop day, the right sacral wound is stable. No active bleeding noted. VAC applied today. Patient complains of neck pain and spasm. Explained to the patient that it is probably due to positioning in surgery as she was in the prone position. It should resolve with time and with a muscle relaxant. Cyclobenzaprine was ordered. If still a problem in next few days, will add Valium to help with the muscle spasm. Operative cultures are pending. On Vancomycin and Unasyn. Pathology is pending. Her Hgb is 9.5. She has anemia of chronic disease. There is no clinical evidence of ongoing bleeding. There was 250 ml of operative blood loss which is expected. Will start Iron supplementation. I don't have records of a previous Hgb. I want to see her neck spasm get a little better before I send her back to her ECF. On the second postop day, the right sacral wound remained stable. VAC in place. Minimal drainage in the canister. The neck pain and spasm was a little better. She is on Cyclobenzaprine. Will add Valium. Operative cultures show Gram negative rods possible Pseudomonas in the soft tissue. On Vancomycin and Unasyn. Will stop the Unasyn and add Zosyn. Pathology is pending. Her Hgb is slightly lower at 9.2 from 9.5 yesterday. She has anemia of chronic disease. There is no clinical evidence of ongoing bleeding. There was 250 ml of operative blood loss which is expected. Continue Iron supplementation. Will keep her one more day until the antibiotic situation is more clear before discharge back to ECF. On the third postop day, the right sacral wound remained stable. VAC in place. Minimal drainage in the canister. The neck pain and spasm continue to improve. She is on Cyclobenzaprine and Valium. Operative cultures show Pseudomonas aeroginosa in the soft tissue. On Vancomycin and Zosyn. Pathology is pending. Her Hgb is stable at 9.1 slightly lower at 9.2 from yesterday. She has anemia of chronic disease. There is no clinical evidence of ongoing bleeding. There was 250 ml of operative blood loss which is expected. Continue Iron supplementation. She had a fever of 100.7 this morning. Chest X-ray was clear. Urinalysis was normal. If she stays afebrile for 24 hours, then return to the ECF. On the fourth postop day, the right sacral wound remained stable. VAC was changed today. The neck pain and spasm continue to improve. A little better. She is on Cyclobenzaprine and Valium. Operative cultures show Pseudomonas aeroginosa in the soft tissue and Sphingomonas paucibilis in the bone. On Vancomycin and Zosyn. Pathology is pending. Her Hgb is stable at 9.2 up slightly from 9.1 yesterday. She has anemia of chronic disease. There is no clinical evidence of ongoing bleeding. There was 250 ml of operative blood loss which is expected. Continue Iron supplementation. She is afebrile. Her postoperative fever has resolved. Chest X-ray was clear. Urinalysis was normal. Am thinking about having her take Levaquin for the organisms at the ECF instead of IV antibiotics. I want to see another night of no fever before doing that. If she spikes another fever, then will plan on IV antibiotics at the ECF. On the fifth postop day, she was afebrile. She was discharged to the ECF. They have their own wound care. So when she is discharged home from the ECF, she can then followup at the [facility]. Wrote script for Levaquin 750mg (21 tabs) and a refill. Wrote scripts for Percocet for pain (28 tabs) and for Valium for spasm (21 tabs). Wrote scripts for Iron supplementation (90 tabs) and a refill and for Charanjit nutritional supplement (120 doses) and a refill. Condition upon discharge is fair. Physical Exam Narrative General - Alert and Oriented HEENT - PERRL. EOMI. Neck - Supple. Some tenderness over the neck muscles resolving. Abdomen - Soft and nondistended. Lower back and sacral area - Right sacral pressure sore is stable. VAC in place. Minimal drainage in the canister. Neuro - CN II-XII grossly intact. Psych - Normal mood and affect. Weight / BMI Weight Weight: 321 lb 13.998 oz Body Mass Index (BMI) 51.1 ABG / Lab / Microbiology Data Attestation: I reviewed the patient's lab results. Result Diagrams: 10/06/20 08:10 10/06/20 06:50 Laboratory: Laboratory Results - last 24 hr 10/07/20 06:15: POC Glucose 125 H 10/07/20 11:36: POC Glucose 136 H Microbiology: Microbiology 10/02/20 Unknown Bone - Sacral Bone Gram Stain - Final 10/02/20 Unknown Bone - Sacral Bone Wound Culture - Final Sphingomonas paucimobilis 10/02/20 Unknown Bone - Sacral Bone Anaerobic Culture - Final No growth in 5 days. 10/02/20 Unknown Tissue - Sacral Gram Stain - Final 10/02/20 Unknown Tissue - Sacral Wound Culture - Final Pseudomonas aeroginosa 10/02/20 Unknown Tissue - Sacral Anaerobic Culture - Final No growth in 5 days. 10/06/20 08:25 Mucosa - Nasopharyngeal SARS-CoV-2 Antigen (Rapid) - Final D/C Instructions Please Follow Up With: Angela Meaningful Use Info Meaningful Use Diagnoses (Choose all that apply): None applicable Discharge Plan Admission Admit Date/Time: 10/02/20 12:14 Primary Reason for Your Visit: right sacral pressure sore, Stage IV Attending Provider: Heather Myers Primary Care Provider: Doug Razo Consulting Providers: Rasta Gottlieb Discharge Orders/Prescriptions Prescriptions: New polysaccharide iron complex [Ferrex 150] 150 mg iron Capsule 150 mg PO DAILYCM 90 Days Qty: 90 RF: 1 levofloxacin 750 mg Tablet 750 mg PO DAILY@0600 21 Days Qty: 21 RF: 1 Charanjit (with collagen) 7-7-1.5 gram Powder In Packet 1 packet PO BIDCM 60 Days Qty: 120 RF: 1 diazepam [Valium] 5 mg tablet 5 mg PO TID PRN PRN (Reason: muscle spasm) 7 Days Qty: 21 RF: 0 oxycodone-acetaminophen [Percocet] 5-325 mg tablet 1 tab PO 4X/DAY PRN PRN (Reason: pain (scale score 7-10)) 7 Days Qty: 28 RF: 0 Continued acetaminophen 325 MG capsule 650 mg PO Q4H PRN PRN (Reason: PAIN OR TEMP) RF: 0 Lactobacillus acidophilus 1 EACH capsule 1 capsule PO BID RF: 0 furosemide 40 MG tablet 40 mg PO DAILY RF: 0 atorvastatin 40 MG tablet 40 mg PO DAILY RF: 0 gabapentin 600 MG tablet 600 mg PO TID RF: 0 loperamide 2 MG capsule 2 mg PO DAILY PRN (Reason: Diarrhea) RF: 0 polyethylene glycol 3350 17 GM packet 17 gm PO DAILY RF: 0 sertraline 100 MG tablet 175 mg PO DAILY RF: 0 potassium chloride 20 MEQ packet 20 meq PO TID RF: 0 famotidine 20 MG tablet 20 mg PO BID RF: 0 magnesium hydroxide 30 ML suspension 30 ml PO DAILY PRN PRN (Reason: Constipation) RF: 0 ascorbic acid (vitamin C) 500 MG tablet 500 mg PO BID RF: 0 meclizine 25 MG tablet 25 mg PO Q12H PRN (Reason: Nausea) RF: 0 bisacodyl 10 MG suppository 10 mg RECTAL DAILY PRN PRN (Reason: Constipation) RF: 0 diphenhydramine HCl 25 MG capsule 25 mg PO Q6H PRN (Reason: Itching) RF: 0 ferrous sulfate 325 MG tablet 325 mg PO BIDCM RF: 0 docusate sodium 100 MG capsule 100 mg PO DAILY PRN (Reason: Constipation) RF: 0 ergocalciferol (vitamin D2) 50,000 UNIT capsule 50,000 unit PO FR RF: 0 ondansetron 4 MG tablet 4 mg PO Q8H PRN PRN (Reason: Nausea) RF: 0 metformin 500 MG tablet extended release 24 hr 500 mg PO DAILY RF: 0 atenolol 50 MG tablet 50 mg PO DAILY RF: 0 vpwghem-yruyvhcaccjyf-geyeaguh 1 EACH tablet 2 tablet PO BID PRN (Reason: Headache) RF: 0 cyclobenzaprine 5 MG tablet 5 mg PO DAILY RF: 0 acetaminophen [Tylenol Extra Strength] 500 mg Tablet 1,000 mg PO Q8 PRN (Reason: Pain) RF: 0 famotidine [Pepcid] 20 mg Tablet 20 mg PO TID RF: 0 vancomycin 1.25 gram Recon Soln 1.25 g IV Q18H RF: 0 Referrals / Follow Up: Doug Razo MD [Primary Care Provider] - Disposition Disposition (needs filled in before D/C Order can be placed): [facility]
== END 2020-10-07 16:57 | disposition skilled nursing facility (03) ==
LOC: SDC 12:38 → MS3 10-03 08:53
PROVIDERS: Admitting Provider Surgery; PCP Internal Medicine; Referring Provider Surgery; Visit Provider Student in an Organized Health Care Education/Training Program
PROC: (CPT 15937; principal; 2020-10-02 09:15)
DX: L89.154 Pressure ulcer of sacral region, stage 4 (principal); M86.08 Acute hematogenous osteomyelitis, other sites; E11.69 Type 2 diabetes mellitus with other specified complication; D63.8 Anemia in other chronic diseases classified elsewhere; M62.838 Other muscle spasm; E66.01 Morbid (severe) obesity due to excess calories; B96.5 Pseudomonas (aeruginosa) (mallei) (pseudomallei) as the cause of diseases classified elsewhere; Z68.43 Body mass index [BMI] 50.0-59.9, adult; M21.379 Foot drop, unspecified foot; F32.9 Major depressive disorder, single episode, unspecified; K21.9 Gastro-esophageal reflux disease without esophagitis; G47.30 Sleep apnea, unspecified; I10 Essential (primary) hypertension; G43.909 Migraine, unspecified, not intractable, without status migrainosus; F44.4 Conversion disorder with motor symptom or deficit; S16.1XXA Strain of muscle, fascia and tendon at neck level, initial encounter; X58.XXXA Exposure to other specified factors, initial encounter; Y93.9 Activity, unspecified; Y92.9 Unspecified place or not applicable; Y99.9 Unspecified external cause status; E87.6 Hypokalemia; L03.319 Cellulitis of trunk, unspecified; R50.82 Postprocedural fever; Z79.899 Other long term (current) drug therapy; Z79.84 Long term (current) use of oral hypoglycemic drugs
CPT/HCPCS: 01120; 15937; 36415; 71045; 80048; 80202; 81001; 82565; 82962; 84134; 85027; 87070; 87075; 87077; 87102; 87176; 87184; 87186; 87205; 87206; 87426; 88304; 88305; 88311; 96365; 96366; 96367; 96372; 96375; 96376; 97802; 97803; 99218; 99251; J7040; J7050; J7120; A4216; G0378; G0463; J0295; J2405

== ENCOUNTER 2020-11-02 11:17 | Outpatient (RCR) | payer MEDICARE, BC, MEDICAID, SELFPAY ==
[2020-10-14 00:17] VITALS: BP 109/49; PULSE 64; RESP 18; TEMP 36.4; BMI 44.6
[2020-11-02 11:25] VITALS: BMI 44.6
--- NOTE | 2020-11-02 13:02 | PCM.WC.PN ---
History of Present Illness Date of Service: 11/02/20 Chief Complaint: Right sacral ulcer History of Wound: 65-year-old white obese nonambulatory female with a history of diabetes mellitus came to [facility] because of a right sacral pressure sore. She developed the pressure sore when she fell last year and was not found for almost 20 hours. She had laid on her back and her legs were caught underneath her body. She developed a gangrene left heel that is now healed but has not walked since. Has developed neuropathies and drop foot. Wound care is with Hydrofera Blue. This is keeping the pressure sore clean and no odor. Today she denies fever. Her appetite is ok. Encourage nutritional supplementation with protein to help the healing process. CT Pelvis was done on 08/12/20. It showed sacral decubitus ulcer with osteomyelitis of the right sacral ala. A wound culture was done on 07/20/20. It showed Streptococcus agalactiae (B), Staphylococcus capitis, Corynebacterium striatum, Anaerobic cocci, and Bacteroides fragilis. She was treated with Augmentin. Surgery on 10/02/20 where she underwent excision right sacral pressure sore, Stage IV, with partial ostectomy for osteomyelitis. Operative culture of sacral bone was positive for Sphingomonas paucimobilis. Sacral tissue positive for Pseudomonas aeroginosa. While in the hospital she was on Vancomycin and Zosyn but on discharge she was placed on Levaquin. Pathology of sacral bone showed chronic inflammation and reactive changes but was negative for acute osteomyelitis. She was discharged to [facility] on 10/07/20 and upon discharge, her wound care was a wound VAC at 150 mmHg. The [facility]CF called asking if we could stop the wound VAC because they were having issues with loose stool getting under the wound drape. We stopped the wound VAC. Wound care is Dakin's 0.25% moistened gauzed topped with absorptive dressing daily and prn. Today she denies fever, chills, or nausea and vomiting. Progress of Wound: Stable. Objective Data Objective Data Vital Signs: Vital Signs Temp Pulse Resp BP 97.6 F L 64 18 109/49 L 10/14/20 00:17 10/14/20 00:17 10/14/20 00:17 10/14/20 00:17 Weight: 281 lb Body Mass Index (BMI) 44.6 Charges/Coding Procedures Integumentary 111xxx-113xx: [id number] Global Visit Physical Exam Const alert General Appearance: cooperative HEENT normocephalic Resp normal respiratory effort Cardio regular rate GI Palpation: soft Extremity normal capillary refill Skin Wound Narrative: Right ischial ulcer is pink and stable Neuro CN's II-XII intact bilaterally Psych Appearance: grossly normal Debridement Note Debridement Note Wound debrided: ischial ulcer Laterality: Right Type of Debridement: Excisional debridement Anesthesia Used: 5% Lidocaine Gel Depth: Down to and including healthy tissue and in the subcutaneous layer Percentage of wound debrided: 100 Instrument Used: 7mm curette Tissue Removed: Subcutaneous tissue and slough Amount of bleeding with debridement: Mild Bleeding Controlled with: Pressure Patient tolerated procedure: Patient tolerated procedure well Post-Debridement Measurements and Additional Note: Post-Debridement Measurements/Treatment - Nurse 1 - General Ulcer Assessment Start: 11/02/20 11:22 Freq: Status: Active Protocol: GERARDO Activity Type Activity Date Activity User E-Sign Co-Sign Detail Recorded Client Recorded Date Recorded By Document 11/02/20 11:25 [facility] [id number] 11/02/20 11:34 [facility] 11/02/20 11:25 - Today's Visit Information Type of service Follow-up Visit (Physician/SCIENTIFIC DATABASE CURATOR ) Arrival Mode Stretcher Transfer Assistance Stretcher Patient Identification Verified (Name & Yes ) Patient Requires Transmission-Based No Precautions Safety Precautions NA Height and Weight Body Mass Index (BMI) 44.6 BMI Classification Obese History Since Last Visit- (Skip if this is Patient's initial visit) Have you changed medications since your No last visit? Any new allergies or adverse reactions No Had a fall/change in ADL's that may No increase risk of falls Signs or symptoms of abuse and/or No neglect since last visit Have you been in the hospital since your No last visit? Has dressing in place as prescribed Yes Has compression in place as prescribed N/A Has offloadiing in place as prescribed Yes Experienced any changes in pain level or No management Left Footwear Slipper Right Footwear Slipper - Nurse 1 - General Ulcer Measurement Start: 11/02/20 11:22 Freq: Status: Active Protocol: Activity Type Activity Date Activity User E-Sign Co-Sign Detail Recorded Client Recorded Date Recorded By Document 11/02/20 11:25 [facility] [id number] 11/02/20 11:34 [facility] 11/02/20 11:25 Wound Center Nurse 1 #1 Right Buttock/Sacral -Combined with other wound No -Current Size (cm) - Length 5.6 -Current Size (cm) - Width 9.5 -Current Size (cm) - Depth 7.7 -Total Square Cm 53.20 -Photo Taken No -Epithelialization None Present -Tunneling No -Undermining/Tunneling No -Circular Undermining No -Change in Wound Grade/Stage No -Exudate Amt Large -Exudate Type Serosanguineous -Wound Margin Distinct, Outline Attached -Granulation Amt None Present (0 %) -Granulation Quality N/A -Slough/Fibrin No -Necrosis Amt None Present (0 %) -Structure Exposed Fascia,Muscle, Bone -Texture ([place]iota-wound Skin Appearance) No Abnormality, Assessed -Moisture ([place]-wound Skin Appearance) No Abnormality, Assessed -Color ([place]-wound Skin Appearance) No Abnormality, Assessed -Temperature ([place]-wound Skin No Abnormality Appearance) (Pt Warm) -Tenderness on Palpation ([place]-wound No Skin Appearance) -Ulcer Cleansing soap and water -Foul Odor after Cleansing No -Anesthetic Used 4% Lidocaine Solution WC - Nurse 2 - General Ulcer CM Notes Start: 11/02/20 11:22 Freq: Status: Active Protocol: Activity Type Activity Date Activity User E-Sign Co-Sign Detail Recorded Client Recorded Date Recorded By Document 11/02/20 12:22 [id number] 11/02/20 12:24 11/02/20 12:22 Wound Center Nurse 2 -Time 12:22 -Correct Patient Yes -Correct Side, Site, Position Yes -Correct Procedure Yes -Procedure Performed Yes -Type of Procedure Debridement -Clinical Debridement Muscle / Fascia -Tissue Removed Muscle -Post Debridement (cm) - Length 8 -Post Debridement (cm) - Width 9.5 -Post Debridement (cm) - Depth 10.5 -Total Square (Post) (cm) 76.0 -Area of Debridement (cm) - Length 8 -Area of Debridement (cm) - Width 9.5 -Total Square (Area) (cm) 76.0 -Tunneling No -Undermining/Tunneling No -Circular Undermining No -Wound/Ulcer Outcome Not Healed -Ulcer Cleansing Rinsed/ Irrigated with Saline -Bioengineered Tissue No -Bleeding Controlled with Pressure -Offloading No -Treatment Response Procedure Tolerated Well -Debridement - Muscle / Fascia, 1st Yes 20sq cm -Debridement, Muscle/Fascia, ea addt'l 3 20sq cm or part thereof Pain Scale: 0-10 Numeric Is Patient Pain Free? Yes - Nurse 3 - General Ulcer D/C NN Start: 11/02/20 11:22 Freq: Status: Active Protocol: Activity Type Activity Date Activity User E-Sign Co-Sign Detail Recorded Client Recorded Date Recorded By Document 11/02/20 12:24 [facility] [id number] 11/02/20 12:25 [facility] 11/02/20 12:24 Wound Care Nurse 3 #1 Right Buttock/Sacral -Ulcer Cleansing Rinsed/ Irrigated with Saline -Foul Odor after Cleansing No -Primary Dressing Covered/Secured with Dry Gauze & Roll Gauze, Secured with Tape Pain Scale: 0-10 Numeric Is Patient Pain Free? Yes WC - Visit Discharge Discharge Condition Stable Ambulatory Status Stretcher Transportation Ambulance Accompanied by [facility] [place] Medication Reconcilliation completed & Yes provided to patient/care provider Clinical Summary of Care Provided Yes Assessment/Plan Assessment/Plan (1) Decubitus ulcer of right ischium, stage 4: CODE(S): L89.314 - Pressure ulcer of right buttock, stage 4 (2) Pseudomonas aeruginosa infection: CODE(S): A49.8 - Other bacterial infections of unspecified site (3) Morbid obesity with BMI of 60.0-69.9, adult: CODE(S): E66.01 - Morbid (severe) obesity due to excess calories; Z68.44 - Body mass index [BMI] 60.0-69.9, adult (4) Diabetes: CODE(S): E11.9 - Type 2 diabetes mellitus without complications QUALIFIERS: Diabetes mellitus type: due to underlying condition Diabetes mellitus longterm insulin use: without longterm use Diabetes mellitus complication status: with circulatory complication Diabetes mellitus complication detail: with other circulatory complications Qualified Code(s): E08.59 - Diabetes mellitus due to underlying condition with other circulatory complications (5) Anemia of chronic disease: CODE(S): D63.8 - Anemia in other chronic diseases classified elsewhere PLAN: Wound care - Dakins 0.25% moistened gauze covered with absorptive dressing daily and PRN. Encouraged increase protein intake to help with wound healing and low carbohydrate diet for blood sugar control. Continue iron supplementation. Completed Levaquin. Follow up 3 weeks.
== END 2020-11-12 23:59 ==
LOC: WC 11:17
PROVIDERS: PCP Internal Medicine; Referring Provider Surgery; Visit Provider Nurse Practitioner
DX: L89.314 Pressure ulcer of right buttock, stage 4 (principal); A49.8 Other bacterial infections of unspecified site; E66.01 Morbid (severe) obesity due to excess calories; E08.59 Diabetes mellitus due to underlying condition with other circulatory complications; D63.8 Anemia in other chronic diseases classified elsewhere; Z68.44 Body mass index [BMI] 60.0-69.9, adult; Z79.4 Long term (current) use of insulin
CPT/HCPCS: 11043; 11046

== ENCOUNTER 2020-11-23 10:45 | Outpatient (RCR) | payer MEDICARE, BC, MEDICAID, SELFPAY ==
[2020-11-13 00:13] VITALS: BP 109/49; PULSE 64; RESP 18; TEMP 36.4; BMI 44.6
[2020-11-23 10:17] VITALS: BP 101/50; PULSE 73; RESP 16; TEMP 36.1; BMI 44.6
--- NOTE | 2020-11-23 13:16 | PCM.WC.PN ---
History of Present Illness Date of Service: 11/23/20 Chief Complaint: Right sacral ulcer History of Wound: 65-year-old white obese nonambulatory female with a history of diabetes mellitus came to the Wound Center because of a right sacral pressure sore. She developed the pressure sore when she fell last year and was not found for almost 20 hours. She had laid on her back and her legs were caught underneath her body. She developed a gangrene left heel that is now healed but has not walked since. Has developed neuropathies and drop foot. CT Pelvis was done on 08/12/20. It showed sacral decubitus ulcer with osteomyelitis of the right sacral ala. A wound culture was done on 07/20/20. It showed Streptococcus agalactiae (B), Staphylococcus capitis, Corynebacterium striatum, Anaerobic cocci, and Bacteroides fragilis. She was treated with Augmentin. Surgery on 10/02/20 where she underwent excision right sacral pressure sore, Stage IV, with partial ostectomy for osteomyelitis. Operative culture of sacral bone was positive for Sphingomonas paucimobilis. Sacral tissue positive for Pseudomonas aeroginosa. While in the hospital she was on Vancomycin and Zosyn but on discharge she was placed on Levaquin. Pathology of sacral bone showed chronic inflammation and reactive changes but was negative for acute osteomyelitis. She was discharged to [facility] on 10/07/20 and upon discharge, her wound care was a wound VAC at 150 mmHg. The ECF called asking if we could stop the wound VAC because they were having issues with loose stool getting under the wound drape. We stopped the wound VAC. Wound care is Dakin's 0.25% moistened gauzed topped with absorptive dressing daily and prn. Today she denies fever. Her appetite is ok. Encourage nutritional supplementation with protein to help the healing process. Progress of Wound: Improved. No bone exposure. Objective Data Objective Data Vital Signs: Vital Signs Temp Pulse Resp BP 97 F L 73 16 101/50 L 11/23/20 10:17 11/23/20 10:17 11/23/20 10:17 11/23/20 10:17 Oxygen Delivery Method Room Air Weight: 281 lb Body Mass Index (BMI) 44.6 Charges/Coding Procedures Integumentary 111xxx-113xx: [id number] Global Visit Physical Exam Const alert and oriented x3 HEENT normocephalic Head and Scalp: atraumatic Resp normal respiratory effort Cardio regular rate GI Palpation: soft Extremity normal capillary refill Skin Wound Narrative: Right sacral ulcer is beefy pink. Granulation tissue is present. There is no bone exposure at this time. [place] wound is clean and dry. Neuro CN's II-XII intact bilaterally Psych Appearance: grossly normal Debridement Note Debridement Note Wound debrided: Sacral ulcer Laterality: Right Wound Grade/Stage: Stage IV Type of Debridement: Excisional debridement Anesthesia Used: 5% Lidocaine Gel Depth: Down to and including healthy tissue, in the subcutaneous layer and to muscle Percentage of wound debrided: 100 Instrument Used: 7mm curette Tissue Removed: Subcutaneous tissue and slough Severity: Fat Layer Exposed Amount of bleeding with debridement: Mild Bleeding Controlled with: Pressure and Compression and gauze Patient tolerated procedure: Patient tolerated procedure well Post-Debridement Measurements and Additional Note: Post-Debridement Measurements/Treatment - Nurse 1 - General Ulcer Assessment Start: 11/23/20 10:16 Freq: Status: Active Protocol: GERARDO Activity Type Activity Date Activity User E-Sign Co-Sign Detail Recorded Client Recorded Date Recorded By Document 11/23/20 10:17 [facility] [id number] 11/23/20 10:20 [facility] 11/23/20 10:17 - Today's Visit Information Type of service Follow-up Visit (Physician/FOREST LAW AND POLICY PROFESSOR ) Arrival Mode Stretcher Transfer Assistance Manual Transfer Assist (Other) 5 assist Patient Identification Verified (Name & Yes ) Patient Requires Transmission-Based No Precautions Height and Weight Body Mass Index (BMI) 44.6 BMI Classification Obese Vital Signs Temperature (97.8 F-99.1 F) 97 F L Temperature Source Temporal Pulse Rate (60-100) 73 Pulse Location Monitor Respiratory Rate (12-18) 16 Respiratory rate source Observation Oxygen Delivery Method Room Air Blood Pressure (90/60-120/80) 101/50 L Blood Pressure Mean (mm Hg) 67 Source Monitor Position Sitting Blood Pressure Location Left Forearm History Since Last Visit- (Skip if this is Patient's initial visit) Have you changed medications since your No last visit? Any new allergies or adverse reactions No Had a fall/change in ADL's that may No increase risk of falls Signs or symptoms of abuse and/or No neglect since last visit Have you been in the hospital since your No last visit? Has dressing in place as prescribed Yes Has compression in place as prescribed N/A Has offloadiing in place as prescribed N/A Experienced any changes in pain level or No management Right Footwear Regular Shoe Pain Scale: 0-10 Numeric Is Patient Pain Free? Yes - Nurse 1 - General Ulcer Measurement Start: 11/23/20 10:16 Freq: Status: Active Protocol: Activity Type Activity Date Activity User E-Sign Co-Sign Detail Recorded Client Recorded Date Recorded By Document 11/23/20 10:17 [facility] [id number] 11/23/20 10:20 [facility] 11/23/20 10:17 Wound Center Nurse 1 #1 Right Buttock/Sacral -Combined with other wound No -Current Size (cm) - Length 6.3 -Current Size (cm) - Width 9.5 -Current Size (cm) - Depth 8.5 -Total Square Cm 59.85 -Photo Taken No -Epithelialization None Present -Tunneling No -Undermining/Tunneling No -Circular Undermining No -Exudate Amt Large -Exudate Type Serosanguineous -Wound Margin Distinct, Outline Attached -Granulation Amt Large (67-100%) -Granulation Quality Red -Slough/Fibrin Yes -Necrosis Amt Small (1-33%) -Necrotic Tissue Type Adherent Slough -Texture ([place]-wound Skin Appearance) Assessed, Scarring -Moisture ([place]-wound Skin Appearance) Assessed -Color ([place]-wound Skin Appearance) Assessed -Temperature ([place]-wound Skin No Abnormality Appearance) (Pt Warm) -Tenderness on Palpation ([place]-wound Yes Skin Appearance) -Ulcer Cleansing Soap and Water -Foul Odor after Cleansing No -Anesthetic Used 4% Lidocaine Solution - Nurse 2 - General Ulcer CM Notes Start: 11/23/20 10:16 Freq: Status: Active Protocol: Activity Type Activity Date Activity User E-Sign Co-Sign Detail Recorded Client Recorded Date Recorded By Document 11/23/20 10:35 [id number] 11/23/20 10:37 [facility] 11/23/20 10:35 Wound Center Nurse 2 -Time 10:35 -Correct Patient Yes -Correct Side, Site, Position Yes -Correct Procedure Yes -Procedure Performed Yes -Type of Procedure Debridement -Clinical Debridement Muscle / Fascia -Tissue Removed Muscle -Post Debridement (cm) - Length 8 -Post Debridement (cm) - Width 8.5 -Post Debridement (cm) - Depth 7.7 -Total Square (Post) (cm) 68.0 -Area of Debridement (cm) - Length 8 -Area of Debridement (cm) - Width 8.5 -Total Square (Area) (cm) 68.0 -Tunneling No -Undermining/Tunneling No -Circular Undermining No -Wound/Ulcer Outcome Not Healed -Ulcer Cleansing Rinsed/ Irrigated with Saline -Foul Odor after Cleansing No -Bioengineered Tissue No -Bleeding Controlled with Pressure -Offloading No -Treatment Response Procedure Tolerated Well -Debridement - Muscle / Fascia, 1st Yes 20sq cm -Debridement, Muscle/Fascia, ea addt'l 3 20sq cm or part thereof - Nurse 3 - General Ulcer D/C NN Start: 11/23/20 10:16 Freq: Status: Active Protocol: Activity Type Activity Date Activity User E-Sign Co-Sign Detail Recorded Client Recorded Date Recorded By Document 11/23/20 10:54 [facility] [id number] 11/23/20 10:54 [facility] 11/23/20 10:54 Wound Care Nurse 3 -Ulcer Cleansing Rinsed/ Irrigated with Saline -Foul Odor after Cleansing No -Primary Dressing Applied Other -Other Dressing moist to dry drsg -Primary Dressing Covered/Secured with Secured with Tape,Other -Other Covering abd Treatment Response Procedure Tolerated Well Pain Scale: 0-10 Numeric Is Patient Pain Free? Yes WC - Visit Discharge Discharge Condition Stable Ambulatory Status Stretcher Transportation Ambulance Facility Type Long-Term Care Facility Assessment/Plan Assessment/Plan (1) Sacral decubitus ulcer, stage IV: CODE(S): L89.154 - Pressure ulcer of sacral region, stage 4 (2) Pseudomonas aeruginosa infection: CODE(S): A49.8 - Other bacterial infections of unspecified site (3) Osteomyelitis: CODE(S): M86.9 - Osteomyelitis, unspecified QUALIFIERS: Osteomyelitis type: acute hematogenous Osteomyelitis location: other site Qualified Code(s): M86.08 - Acute hematogenous osteomyelitis, other sites (4) Diabetes: CODE(S): E11.9 - Type 2 diabetes mellitus without complications QUALIFIERS: Diabetes mellitus type: due to underlying condition Diabetes mellitus halfway insulin use: without joint terminal attack controller use Diabetes mellitus complication status: with circulatory complication Diabetes mellitus complication detail: with other circulatory complications Qualified Code(s): E08.59 - Diabetes mellitus due to underlying condition with other circulatory complications (5) Morbid obesity with BMI of 60.0-69.9, adult: CODE(S): E66.01 - Morbid (severe) obesity due to excess calories; Z68.44 - Body mass index [BMI] 60.0-69.9, adult PLAN: Wound care - Dakins 0.25% moistened gauze covered with absorptive dressing daily and PRN. Encouraged increase protein intake to help with wound healing and low carbohydrate diet for blood sugar control. Continue iron supplementation. Completed Levaquin. Follow up 3 weeks.
== END 2020-12-13 23:59 ==
LOC: WC 10:45
PROVIDERS: PCP Internal Medicine; Referring Provider Surgery; Visit Provider Nurse Practitioner Family
DX: L89.154 Pressure ulcer of sacral region, stage 4 (principal); E11.69 Type 2 diabetes mellitus with other specified complication; M86.08 Acute hematogenous osteomyelitis, other sites; E66.01 Morbid (severe) obesity due to excess calories; Z68.44 Body mass index [BMI] 60.0-69.9, adult; Z79.4 Long term (current) use of insulin
CPT/HCPCS: 11043; 11046

== ENCOUNTER 2020-12-21 10:49 | Outpatient (RCR) | payer MEDICARE, BC, MEDICAID, SELFPAY ==
[2020-12-14 00:09] VITALS: BP 101/50; PULSE 73; RESP 16; TEMP 36.1; BMI 44.6
[2020-12-21 10:50] VITALS: BMI 44.6
--- NOTE | 2020-12-21 14:44 | PCM.WC.PN ---
History of Present Illness Date of Service: 12/21/20 Chief Complaint: Right sacral ulcer History of Wound: 65-year-old white obese nonambulatory female with a history of diabetes mellitus came [facility] because of a right sacral pressure sore. She developed the pressure sore when she fell last year and was not found for almost 20 hours. She had laid on her back and her legs were caught underneath her body. She developed a gangrene left heel that is now healed but has not walked since. Has developed neuropathies and drop foot. CT Pelvis was done on 08/12/20. It showed sacral decubitus ulcer with osteomyelitis of the right sacral ala. A wound culture was done on 07/20/20. It showed Streptococcus agalactiae (B), Staphylococcus capitis, Corynebacterium striatum, Anaerobic cocci, and Bacteroides fragilis. She was treated with Augmentin. Surgery on 10/02/20 where she underwent excision right sacral pressure sore, Stage IV, with partial ostectomy for osteomyelitis. Operative culture of sacral bone was positive for Sphingomonas paucimobilis. Sacral tissue positive for Pseudomonas aeroginosa. While in the hospital she was on Vancomycin and Zosyn but on discharge she was placed on Levaquin. Pathology of sacral bone showed chronic inflammation and reactive changes but was negative for acute osteomyelitis. She was discharged to [facility] on 10/07/20 and upon discharge, her wound care was a wound VAC at 150 mmHg. The F called asking if we could stop the wound VAC because they were having issues with loose stool getting under the wound drape. We stopped the wound VAC. Wound care is Dakin's 0.25% moistened gauzed topped with absorptive dressing daily and prn. Today she denies fever. Her appetite is ok. Encourage nutritional supplementation with protein to help the healing process. Progress of Wound: Stable. Note sent from residential that patient is non compliant with turning and getting out of bed. She has had issues with her leal catheter coming out, so now the patient doesn't want to get out of bed. Objective Data Objective Data Vital Signs: Vital Signs Temp Pulse Resp BP 97 F L 73 16 101/50 L 12/14/20 00:09 12/14/20 00:09 12/14/20 00:09 12/14/20 00:09 Weight: 281 lb Body Mass Index (BMI) 44.6 Charges/Coding Procedures Integumentary 111xxx-113xx: 15703 Global Visit Physical Exam Const alert and oriented x3 General Appearance: cooperative HEENT normocephalic Head and Scalp: atraumatic Eyes PERRL Lymph Lymphatic: no lymphedema noted Resp normal respiratory effort Cardio regular rate GI non-tender Extremity normal capillary refill Skin Wound Narrative: Sacral ulcer is pink, into the muscle. Neuro CN's II-XII intact bilaterally Psych Appearance: grossly normal Debridement Note Debridement Note Wound debrided: Sacral ulcer Laterality: Not Applicable Type of Debridement: Excisional debridement Anesthesia Used: 5% Lidocaine Gel Depth: Down to and including healthy tissue, in the subcutaneous layer and to muscle Percentage of wound debrided: 100 Instrument Used: 7mm curette Tissue Removed: Subcutaneous tissue and slough Severity: Fat Layer Exposed Amount of bleeding with debridement: Mild Bleeding Controlled with: Compression and gauze Patient tolerated procedure: Patient tolerated procedure well Post-Debridement Measurements and Additional Note: Post-Debridement Measurements/Treatment - Nurse 1 - General Ulcer Assessment Start: 12/21/20 10:50 Freq: Status: Active Protocol: GERARDO Activity Type Activity Date Activity User E-Sign Co-Sign Detail Recorded Client Recorded Date Recorded By Document 12/21/20 10:50 MINA [id number] 12/21/20 10:54 MINA 12/21/20 10:50 - Today's Visit Information Type of service Follow-up Visit (Physician/LION TRAINER ) Arrival Mode Stretcher Transfer Assistance Stretcher Patient Identification Verified (Name & Yes ) Patient Requires Transmission-Based No Precautions Safety Precautions NA Height and Weight Body Mass Index (BMI) 44.6 BMI Classification Obese History Since Last Visit- (Skip if this is Patient's initial visit) Have you changed medications since your No last visit? Any new allergies or adverse reactions No Had a fall/change in ADL's that may No increase risk of falls Signs or symptoms of abuse and/or No neglect since last visit Have you been in the hospital since your No last visit? Has dressing in place as prescribed Yes Has compression in place as prescribed N/A Has offloadiing in place as prescribed N/A Experienced any changes in pain level or No management - Nurse 1 - General Ulcer Measurement Start: 12/21/20 10:50 Freq: Status: Active Protocol: Activity Type Activity Date Activity User E-Sign Co-Sign Detail Recorded Client Recorded Date Recorded By Document 12/21/20 10:50 MINA [id number] 12/21/20 10:54 AK 12/21/20 10:50 Wound Center Nurse 1 #1 Right Buttock/Sacral -Combined with other wound No -Current Size (cm) - Length 6.1 -Current Size (cm) - Width 9.8 -Current Size (cm) - Depth 4.5 -Total Square Cm 59.78 -Photo Taken No -Epithelialization Small 1-33% -Tunneling No -Undermining/Tunneling No -Circular Undermining No -Exudate Amt Medium -Exudate Type Serosanguineous -Wound Margin Distinct, Outline Attached -Granulation Amt Large (67-100%) -Granulation Quality [place],Red -Slough/Fibrin Yes -Necrosis Amt Small (1-33%) -Necrotic Tissue Type Adherent Slough -Texture (Gaviota-wound Skin Appearance) Assessed,Rash -Moisture ([place]-wound Skin Appearance) No Abnormality, Assessed -Color ([place]-wound Skin Appearance) No Abnormality, Assessed -Temperature ([place]-wound Skin Hot Appearance) -Tenderness on Palpation ([place]-wound No Skin Appearance) -Ulcer Cleansing Soap and Water -Foul Odor after Cleansing No -Anesthetic Used 4% Lidocaine Solution WC - Nurse 2 - General Ulcer CM Notes Start: 12/21/20 10:50 Freq: Status: Active Protocol: Activity Type Activity Date Activity User E-Sign Co-Sign Detail Recorded Client Recorded Date Recorded By Document 12/21/20 11:14 EHSAN [id number] 12/21/20 11:18 EHSAN 12/21/20 11:14 Wound Center Nurse 2 -Time 11:14 -Correct Patient Yes -Correct Side, Site, Position Yes -Correct Procedure Yes -Procedure Performed Yes -Type of Procedure Debridement -Clinical Debridement Muscle / Fascia -Tissue Removed Muscle -Post Debridement (cm) - Length 6 -Post Debridement (cm) - Width 11 -Post Debridement (cm) - Depth 6 -Total Square (Post) (cm) 66 -Area of Debridement (cm) - Length 6 -Area of Debridement (cm) - Width 11 -Total Square (Area) (cm) 66 -Tunneling No -Undermining/Tunneling No -Circular Undermining No -Wound/Ulcer Outcome Not Healed -Ulcer Cleansing Rinsed/ Irrigated with Saline -Foul Odor after Cleansing No -Bioengineered Tissue No -Bleeding Controlled with Pressure -Offloading No -Treatment Response Procedure Tolerated Well -Debridement - Muscle / Fascia, 1st Yes 20sq cm -Debridement, Muscle/Fascia, ea addt'l 3 20sq cm or part thereof Pain Scale: 0-10 Numeric Is Patient Pain Free? Yes - Nurse 3 - General Ulcer D/C NN Start: 12/21/20 10:50 Freq: Status: Active Protocol: Activity Type Activity Date Activity User E-Sign Co-Sign Detail Recorded Client Recorded Date Recorded By Document 12/21/20 11:23 DL [id number] 12/21/20 11:25 DL 12/21/20 11:23 Wound Care Nurse 3 #1 Right Buttock/Sacral -Ulcer Cleansing Rinsed/ Irrigated with Saline -Foul Odor after Cleansing No -Primary Dressing Covered/Secured with Dry Gauze, Secured with Tape -Other Covering ABDs Treatment Response Procedure Tolerated Well Pain Scale: 0-10 Numeric Is Patient Pain Free? Yes WC - Visit Discharge Discharge Condition Stable Ambulatory Status Stretcher Transportation Ambulance Facility Type Returned Goods Inspector Care Facility Orders Sent Yes Assessment/Plan Assessment/Plan (1) Sacral decubitus ulcer, stage IV: CODE(S): L89.154 - Pressure ulcer of sacral region, stage 4 (2) Osteomyelitis: CODE(S): M86.9 - Osteomyelitis, unspecified QUALIFIERS: Osteomyelitis type: acute hematogenous Osteomyelitis location: other site Qualified Code(s): M86.08 - Acute hematogenous osteomyelitis, other sites (3) Diabetes: CODE(S): E11.9 - Type 2 diabetes mellitus without complications QUALIFIERS: Diabetes mellitus type: due to underlying condition Diabetes mellitus senior living insulin use: without termite control technician use Diabetes mellitus complication status: with circulatory complication Diabetes mellitus complication detail: with other circulatory complications Qualified Code(s): E08.59 - Diabetes mellitus due to underlying condition with other circulatory complications (4) Morbid obesity with BMI of 60.0-69.9, adult: CODE(S): E66.01 - Morbid (severe) obesity due to excess calories; Z68.44 - Body mass index [BMI] 60.0-69.9, adult PLAN: Wound care - Dakins 0.25% moistened gauze covered with absorptive dressing daily and PRN. Encouraged increase protein intake to help with wound healing and low carbohydrate diet for blood sugar control. Continue iron supplementation. Completed Levaquin. Note sent from residential stating that the patient has been non-compliant with turning and getting out of bed to a chair because she is having issues with her leal catheter having come out in the past. Discussed with patient that she needs to turn and to get up to the chair as instructed by the staff. As for the elal, refer to the physician managing her care or refer to urology for further assessment. Concerns about her being incontinent of urine with her non-compliance to move, therefore it could impact her sacral ulcer. Follow up 3 weeks.
== END 2021-01-12 23:59 ==
LOC: WC 10:49
PROVIDERS: PCP Internal Medicine; Referring Provider Surgery; Visit Provider Nurse Practitioner Family
DX: L89.154 Pressure ulcer of sacral region, stage 4 (principal); M86.08 Acute hematogenous osteomyelitis, other sites; E66.01 Morbid (severe) obesity due to excess calories; Z68.44 Body mass index [BMI] 60.0-69.9, adult; Z79.4 Long term (current) use of insulin; Z91.19 Patient's noncompliance with other medical treatment and regimen; E11.69 Type 2 diabetes mellitus with other specified complication
CPT/HCPCS: 11043; 11046

== ENCOUNTER 2021-01-18 09:36 | Outpatient (RCR) | payer MEDICARE, BC, MEDICAID, SELFPAY ==
[2021-01-13 00:15] VITALS: BP 101/50; PULSE 73; RESP 16; TEMP 36.1; BMI 44.6
[2021-01-18 09:40] VITALS: BMI 44.6
--- NOTE | 2021-01-18 11:58 | PN.PCM_ITS ---
History of Present Illness Date of Service: 01/18/21 Chief Complaint: Right sacral ulcer History of Wound: 65-year-old white obese nonambulatory female with a history of diabetes mellitus came to the Wound Center because of a right sacral pressure sore. She developed the pressure sore when she fell last year and was not found for almost 20 hours. She had laid on her back and her legs were caught underneath her body. She developed a gangrene left heel that is now healed but has not walked since. Has developed neuropathies and drop foot. CT Pelvis was done on 08/12/20. It showed sacral decubitus ulcer with osteomyelitis of the right sacral ala. A wound culture was done on 07/20/20. It showed Streptococcus agalactiae (B), Staphylococcus capitis, Corynebacterium striatum, Anaerobic cocci, and Bacteroides fragilis. She was treated with Augmentin. Surgery on 10/02/20 where she underwent excision right sacral pressure sore, Stage IV, with partial ostectomy for osteomyelitis. Operative culture of sacral bone was positive for Sphingomonas paucimobilis. Sacral tissue positive for Pseudomonas aeroginosa. While in the hospital she was on Vancomycin and Zosyn but on discharge she was placed on Levaquin. Pathology of sacral bone showed chronic inflammation and reactive changes but was negative for acute osteomyelitis. [facility] and upon discharge, her wound care was a wound VAC at 150 mmHg. The [facility] called asking if we could stop the wound VAC because they were having issues with loose stool getting under the wound drape. We stopped the wound VAC. Wound care is Dakin's 0.25% moistened gauzed topped with absorptive dressing daily and prn. Today she denies fever. Her appetite is ok. Encourage nutritional supplementation with protein to help the healing process. Progress of Wound: Ulcer is beefy pink. Smaller in size. Objective Data Objective Data Vital Signs: Vital Signs Temp Pulse Resp BP 97 F L 73 16 101/50 L 01/13/21 00:15 01/13/21 00:15 01/13/21 00:15 01/13/21 00:15 Weight: 281 lb Body Mass Index (BMI) 44.6 Charges/Coding Procedures Integumentary 111xxx-113xx: 59957 Liz musc/fascia 20 sq cm/< Add On Codes: 50291 Liz musc/fascia add-on (x2) Physical Exam Const alert and oriented x3 General Appearance: cooperative HEENT normocephalic Head and Scalp: atraumatic Eyes PERRL Lymph Lymphatic: no lymphedema noted Resp normal respiratory effort Cardio regular rate GI non-tender Palpation: soft Extremity normal capillary refill Skin Wound Narrative: Sacral ulcer is beefy pink and is smaller is size. Neuro CN's II-XII intact bilaterally Psych Appearance: grossly normal Debridement Note Debridement Note Wound debrided: sacral ulcer Laterality: Not Applicable Wound Grade/Stage: Stage IV Type of Debridement: Excisional debridement Anesthesia Used: 5% Lidocaine Gel Depth: Down to and including healthy tissue, in the subcutaneous layer and to muscle Percentage of wound debrided: 100 Instrument Used: 7mm curette Tissue Removed: Subcutaneous tissue and slough into the muscle. Severity: Fat Layer Exposed Amount of bleeding with debridement: Mild Bleeding Controlled with: Pressure Patient tolerated procedure: Patient tolerated procedure well Post-Debridement Measurements and Additional Note: Post-Debridement Measurements/Treatment WC - Nurse 1 - General Ulcer Assessment Start: 01/18/21 09:40 Freq: Status: Active Protocol: LUCRECIA.LOWDANYAT Activity Type Activity Date Activity User E-Sign Co-Sign Detail Recorded Client Recorded Date Recorded By Document 01/18/21 09:40 ME [id number] 01/18/21 09:43 MINA 01/18/21 09:40 - Today's Visit Information Type of service Follow-up Visit (Physician/SUGAR LABORATORY ASSISTANT ) Arrival Mode Stretcher Transfer Assistance Stretcher Transfer Assist (Other) 5 Patient Identification Verified (Name & Yes ) Patient Requires Transmission-Based No Precautions Safety Precautions NA Height and Weight Body Mass Index (BMI) 44.6 BMI Classification Obese History Since Last Visit- (Skip if this is Patient's initial visit) Have you changed medications since your No last visit? Any new allergies or adverse reactions No Had a fall/change in ADL's that may No increase risk of falls Signs or symptoms of abuse and/or No neglect since last visit Have you been in the hospital since your No last visit? Has dressing in place as prescribed Yes Has compression in place as prescribed N/A Has offloadiing in place as prescribed N/A Experienced any changes in pain level or No management Left Footwear Regular Shoe Right Footwear Regular Shoe - Nurse 1 - General Ulcer Measurement Start: 01/18/21 09:40 Freq: Status: Active Protocol: Activity Type Activity Date Activity User E-Sign Co-Sign Detail Recorded Client Recorded Date Recorded By Document 01/18/21 09:40 AK [id number] 01/18/21 09:43 AK 01/18/21 09:40 Wound Center Nurse 1 #1 Right Buttock/Sacral -Combined with other wound No -Current Size (cm) - Length 5 -Current Size (cm) - Width 8 -Current Size (cm) - Depth 5 -Total Square Cm 40 -Photo Taken No -Epithelialization Large 67-100% -Tunneling No -Undermining/Tunneling Yes -Undermining/Tunneling Starts (O'clock 12 ) -Undermining/Tunneling Ends (O'clock) 1 -Maximum Distance (cm) 6 -Circular Undermining No -Change in Wound Grade/Stage No -Exudate Amt Small -Exudate Type Yellow/Green -Wound Margin Distinct, Outline Attached -Granulation Amt Large (67-100%) -Granulation Quality Red -Structure Exposed N/A -Texture ([place]-wound Skin Appearance) Assessed, Scarring -Moisture ([place]-wound Skin Appearance) No Abnormality, Assessed -Color ([place]-wound Skin Appearance) No Abnormality, Assessed -Temperature ([place]-wound Skin No Abnormality Appearance) (Pt Warm) -Tenderness on Palpation ([place]-wound No Skin Appearance) -Ulcer Cleansing Soap and Water -Foul Odor after Cleansing No -Anesthetic Used 4% Lidocaine Solution WC - Nurse 2 - General Ulcer CM Notes Start: 01/18/21 09:40 Freq: Status: Active Protocol: Activity Type Activity Date Activity User E-Sign Co-Sign Detail Recorded Client Recorded Date Recorded By Document 01/18/21 09:56 EHSAN [id number] 01/18/21 09:57 EHSAN 01/18/21 09:56 Wound Center Nurse 2 -Time 09:56 -Correct Patient Yes -Correct Side, Site, Position Yes -Correct Procedure Yes -Procedure Performed Yes -Type of Procedure Debridement -Clinical Debridement Muscle / Fascia -Tissue Removed Muscle -Post Debridement (cm) - Length 5.5 -Post Debridement (cm) - Width 10 -Post Debridement (cm) - Depth 4 -Total Square (Post) (cm) 55.0 -Area of Debridement (cm) - Length 5.5 -Area of Debridement (cm) - Width 10 -Total Square (Area) (cm) 55.0 -Tunneling Yes -Tunneling Position (O'clock) 12 -Tunneling Distance (cm) 4.3 -Undermining/Tunneling No -Circular Undermining No -Wound/Ulcer Outcome Not Healed -Ulcer Cleansing Rinsed/ Irrigated with Saline -Foul Odor after Cleansing No -Bioengineered Tissue No -Bleeding Controlled with Pressure -Offloading No -Treatment Response Procedure Tolerated Well -Debridement - Muscle / Fascia, 1st Yes 20sq cm -Debridement, Muscle/Fascia, ea addt'l 2 20sq cm or part thereof -Debridement - Bone, 1st 20sq cm No Pain Scale: 0-10 Numeric Is Patient Pain Free? Yes - Nurse 3 - General Ulcer D/C NN Start: 01/18/21 09:40 Freq: Status: Active Protocol: Activity Type Activity Date Activity User E-Sign Co-Sign Detail Recorded Client Recorded Date Recorded By Document 01/18/21 10:09 CHAYA [id number] 01/18/21 10:10 CHAYA 01/18/21 10:09 Wound Care Nurse 3 #1 Right Buttock/Sacral -Ulcer Cleansing Rinsed/ Irrigated with Saline -Foul Odor after Cleansing No -Primary Dressing Applied Aquacel AG 4x4 -Primary Dressing Covered/Secured with Dry Gauze, Secured with Tape -Aquacel AG 4x4 1 Treatment Response Procedure Tolerated Well Pain Scale: 0-10 Numeric Is Patient Pain Free? Yes - Visit Discharge Discharge Condition Stable Ambulatory Status Unsteady Transportation Ambulance Notes: Pt to resume dakins packing at [facility] Facility Type [facility] Care Facility Orders Sent Yes Assessment/Plan Assessment/Plan (1) Sacral decubitus ulcer, stage IV: CODE(S): L89.154 - Pressure ulcer of sacral region, stage 4 (2) Osteomyelitis: CODE(S): M86.9 - Osteomyelitis, unspecified QUALIFIERS: Osteomyelitis type: acute hematogenous Osteomyelitis location: other site Qualified Code(s): M86.08 - Acute hematogenous osteomyelitis, other sites (3) Diabetes: CODE(S): E11.9 - Type 2 diabetes mellitus without complications QUALIFIERS: Diabetes mellitus type: due to underlying condition 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 Encouraged increase protein intake to help with wound healing and low carbohydrate diet for blood sugar control. Continue iron supplementation. Completed Levaquin. Patient saw urology and they placed a larger leal catheter in her. She still is refusing to get into the chair because she is afraid her catheter will come out. Instructed her that she needs to get up to the chair. She is concerned because she sometimes in the chair for longer than 2 hours. I stated that she can be up in the chair for up to 2-3 hours per day. She has concerns about her left upper lip skin graft and would like to speak to Dr. Miller about it. I stated I would talk to him and try to have him come see her sometime when she is at the wound center. Follow up 4 weeks.
== END 2021-02-12 23:59 ==
LOC: WC 09:36
PROVIDERS: PCP Internal Medicine; Referring Provider Surgery; Visit Provider Nurse Practitioner Family
DX: L89.154 Pressure ulcer of sacral region, stage 4 (principal); M86.08 Acute hematogenous osteomyelitis, other sites; E08.59 Diabetes mellitus due to underlying condition with other circulatory complications; E66.01 Morbid (severe) obesity due to excess calories; Z68.44 Body mass index [BMI] 60.0-69.9, adult; Z79.4 Long term (current) use of insulin
CPT/HCPCS: 11043; 11046

== ENCOUNTER 2021-02-22 10:04 | Outpatient (RCR) | payer MEDICARE, BC, MEDICAID, SELFPAY ==
[2021-02-13 00:15] VITALS: BP 101/50; PULSE 73; RESP 16; TEMP 36.1; BMI 44.6
[2021-02-22 09:45] VITALS: BP 132/88; RESP 16; BMI 44.6
--- NOTE | 2021-02-22 13:57 | PN.PCM_ITS ---
History of Present Illness Date of Service: 02/22/21 Chief Complaint: Right sacral ulcer History of Wound: 65-year-old white obese nonambulatory female with a history of diabetes mellitus came to the Wound Center because of a right sacral pressure sore. She developed the pressure sore when she fell last year and was not found for almost 20 hours. She had laid on her back and her legs were caught underneath her body. She developed a gangrene left heel that is now healed but has not walked since. Has developed neuropathies and drop foot. CT Pelvis was done on 08/12/20. It showed sacral decubitus ulcer with osteomyelitis of the right sacral ala. A wound culture was done on 07/20/20. It showed Streptococcus agalactiae (B), Staphylococcus capitis, Corynebacterium striatum, Anaerobic cocci, and Bacteroides fragilis. She was treated with Augmentin. Surgery on 10/02/20 where she underwent excision right sacral pressure sore, Stage IV, with partial ostectomy for osteomyelitis. Operative culture of sacral bone was positive for Sphingomonas paucimobilis. Sacral tissue positive for Pseudomonas aeroginosa. While in the hospital she was on Vancomycin and Zosyn but on discharge she was placed on Levaquin. Pathology of sacral bone showed chronic inflammation and reactive changes but was negative for acute osteomyelitis. She was discharged to [facility] on 10/07/20 and upon discharge, her wound care was a wound VAC at 150 mmHg. The F called asking if we could stop the wound VAC because they were having issues with loose stool getting under the wound drape. We stopped the wound VAC. Wound care is Dakin's 0.25% moistened gauzed topped with absorptive dressing daily and prn. Today she denies fever. Her appetite is ok. Encourage nutritional supplementation with protein to help the healing process. Progress of Wound: Sacral ulcer is stable. She has a new ulcer on her left upper arm that she states that she has had that for years. It appears to be a new ulcer, will continue to monitor it closely. Objective Data Objective Data Vital Signs: Vital Signs Temp Pulse Resp BP 97 F L 73 16 132/88 H 02/13/21 00:15 02/13/21 00:15 02/22/21 09:45 02/22/21 09:45 Oxygen Delivery Method Room Air Weight: 281 lb Body Mass Index (BMI) 44.6 Charges/Coding Addendum Addendum: 42717 left arm ulcer- subcutaneous Procedures Integumentary 111xxx-113xx: 91980 Liz musc/fascia 20 sq cm/< (sacral ulcer) Add On Codes: 84124 Liz musc/fascia add-on (x2 sacral ulcer) Physical Exam Const alert and oriented x3 HEENT normocephalic Resp normal respiratory effort Cardio regular rate GI Palpation: soft Extremity normal capillary refill General Extremity: edema Skin Wound Narrative: Stage IV sacral ulcer is beefy pink in color into the muscle. She has a new ulcer on her left upper arm that is into the subcutaneous tissue. She states she has had this open wound for years this is the first time is was seen at the wound center, it looks like a new ulcer. Neuro CN's II-XII intact bilaterally Psych Appearance: grossly normal Debridement Note Debridement Note Wound debrided: Sacral ulcer Wound Grade/Stage: Stage IV Type of Debridement: Excisional debridement Anesthesia Used: 5% Lidocaine Gel Depth: Down to and including healthy tissue, in the subcutaneous layer and to muscle Percentage of wound debrided: 100 Instrument Used: 7mm curette Tissue Removed: Subcutaneous tissue and slough into the muscle. Severity: Fat Layer Exposed Amount of bleeding with debridement: Mild Bleeding Controlled with: Pressure Patient tolerated procedure: Patient tolerated procedure well Post-Debridement Measurements and Additional Note: Post-Debridement Measurements/Treatment - Nurse 1 - General Ulcer Assessment Start: 02/22/21 09:45 Freq: Status: Active Protocol: .KENRICK Activity Type Activity Date Activity User E-Sign Co-Sign Detail Recorded Client Recorded Date Recorded By Document 02/22/21 09:45 [facility] [id number] 02/22/21 09:48 [facility] 02/22/21 09:45 - Today's Visit Information Type of service Follow-up Visit (Physician/CLINICAL SERVICES DIRECTOR ) Arrival Mode Stretcher Transfer Assistance Manual Transfer Assist (Other) 4 assist Patient Identification Verified (Name & Yes ) Patient Requires Transmission-Based No Precautions Height and Weight Body Mass Index (BMI) 44.6 BMI Classification Obese Vital Signs Respiratory Rate (12-18) 16 Respiratory rate source Observation Oxygen Delivery Method Room Air Blood Pressure (90/60-120/80) 132/88 H Blood Pressure Mean (mm Hg) 102 Source Monitor History Since Last Visit- (Skip if this is Patient's initial visit) Have you changed medications since your No last visit? Any new allergies or adverse reactions No Had a fall/change in ADL's that may No increase risk of falls Signs or symptoms of abuse and/or No neglect since last visit Have you been in the hospital since your No last visit? Has dressing in place as prescribed Yes Has compression in place as prescribed N/A Has offloadiing in place as prescribed N/A Experienced any changes in pain level or No management Pain Scale: 0-10 Numeric Is Patient Pain Free? Yes WC - Nurse 1 - General Ulcer Measurement Start: 02/22/21 09:45 Freq: Status: Active Protocol: Activity Type Activity Date Activity User E-Sign Co-Sign Detail Recorded Client Recorded Date Recorded By Document 02/22/21 09:45 [facility] [id number] 02/22/21 09:48 [facility] Edit Result 02/22/21 09:45 [facility] (1) [id number] 02/22/21 09:53 BMF (1) #4- L UPPER FOREARM - Combined with other wound => No - Current Size (cm) - Length => 0.5 - Current Size (cm) - Width => 6.6 - Current Size (cm) - Depth => 0.1 - Total Square Cm => 3.30 - Date of Last Picture (Recall this => 02/22/21 field) - Photo Taken => Yes - Epithelialization => None Present - Tunneling => No - Undermining/Tunneling => No - Circular Undermining => No - Exudate Amt => Medium - Exudate Type => Serosanguineous - Wound Margin => Distinct, Outline => Attached - Granulation Amt => Small (1-33%) - Granulation Quality => Pale - Slough/Fibrin => Yes - Necrosis Amt => Large (67-100%) - Necrotic Tissue Type => Eschar - Texture (Gaviota-wound Skin Appearance) => Assessed - Moisture (Gaviota-wound Skin Appearance) => Assessed - Color (Gaviota-wound Skin Appearance) => Assessed - Temperature (Gaviota-wound Skin => No Abnormality (Pt Appearance) => Warm) - Tenderness on Palpation (Gaviota-wound => No Skin Appearance) - Ulcer Cleansing => Rinsed/Irrigated => with Saline - Foul Odor after Cleansing => No - Anesthetic Used => 5% Lidocaine Gel 02/22/21 09:45 Wound Center Nurse 1 #4- L UPPER FOREARM -Combined with other wound No -Current Size (cm) - Length 0.5 -Current Size (cm) - Width 6.6 -Current Size (cm) - Depth 0.1 -Total Square Cm 3.30 -Date of Last Picture (Recall this 02/22/21 field) -Photo Taken Yes -Epithelialization None Present -Tunneling No -Undermining/Tunneling No -Circular Undermining No -Exudate Amt Medium -Exudate Type Serosanguineous -Wound Margin Distinct, Outline Attached -Granulation Amt Small (1-33%) -Granulation Quality Pale -Slough/Fibrin Yes -Necrosis Amt Large (67-100%) -Necrotic Tissue Type Eschar -Texture (Gaviota-wound Skin Appearance) Assessed -Moisture (Gaviota-wound Skin Appearance) Assessed -Color (Gaviota-wound Skin Appearance) Assessed -Temperature (Gaviota-wound Skin No Abnormality Appearance) (Pt Warm) -Tenderness on Palpation (Gaviota-wound No Skin Appearance) -Ulcer Cleansing Rinsed/ Irrigated with Saline -Foul Odor after Cleansing No -Anesthetic Used 5% Lidocaine Gel #1 Right Buttock/Sacral -Combined with other wound No -Current Size (cm) - Length 3 -Current Size (cm) - Width 8.6 -Current Size (cm) - Depth 2.9 -Total Square Cm 25.8 -Photo Taken No -Epithelialization Small 1-33% -Tunneling No -Undermining/Tunneling Yes -Undermining/Tunneling Starts (O'clock 9 ) -Undermining/Tunneling Ends (O'clock) 2 -Maximum Distance (cm) 3.9 -Circular Undermining No -Exudate Amt Large -Exudate Type Serosanguineous -Wound Margin Distinct, Outline Attached -Granulation Amt Large (67-100%) -Granulation Quality Red -Slough/Fibrin Yes -Necrosis Amt Small (1-33%) -Necrotic Tissue Type Adherent Slough -Texture (Gaviota-wound Skin Appearance) Assessed -Moisture (Gaviota-wound Skin Appearance) Assessed -Color (Gaviota-wound Skin Appearance) Assessed -Temperature (Gaviota-wound Skin No Abnormality Appearance) (Pt Warm) -Tenderness on Palpation (Gaviota-wound No Skin Appearance) -Ulcer Cleansing Soap and Water -Foul Odor after Cleansing No -Anesthetic Used 4% Lidocaine Solution WC - Nurse 2 - General Ulcer CM Notes Start: 02/22/21 09:45 Freq: Status: Active Protocol: Activity Type Activity Date Activity User E-Sign Co-Sign Detail Recorded Client Recorded Date Recorded By Document 02/22/21 10:16 [facility] [id number] 02/22/21 10:23 [facility] 02/22/21 10:16 Wound Center Nurse 2 #4- L UPPER FOREARM -Time 10:16 -Correct Patient Yes -Correct Side, Site, Position Yes -Correct Procedure Yes -Procedure Performed Yes -Type of Procedure Debridement -Clinical Debridement Subcutaneous -Tissue Removed Subcutaneous -Post Debridement (cm) - Length 1.0 -Post Debridement (cm) - Width 6.2 -Post Debridement (cm) - Depth 0.2 -Total Square (Post) (cm) 6.20 -Area of Debridement (cm) - Length 1.0 -Area of Debridement (cm) - Width 6.2 -Total Square (Area) (cm) 6.20 -Tunneling No -Undermining/Tunneling No -Circular Undermining No -Wound/Ulcer Outcome Not Healed -Ulcer Cleansing Rinsed/ Irrigated with Saline -Foul Odor after Cleansing No -Bioengineered Tissue No -Bleeding Controlled with Pressure -Offloading No -Treatment Response Procedure Tolerated Well -Debridement - Subq, 1st 20sq cm Yes #1 Right Buttock/Sacral -Time 10:17 -Correct Patient Yes -Correct Side, Site, Position Yes -Correct Procedure Yes -Procedure Performed Yes -Type of Procedure Debridement -Clinical Debridement Muscle / Fascia -Tissue Removed Muscle -Post Debridement (cm) - Length 5.3 -Post Debridement (cm) - Width 9.5 -Post Debridement (cm) - Depth 4.5 -Total Square (Post) (cm) 50.35 -Area of Debridement (cm) - Length 5.3 -Area of Debridement (cm) - Width 9.5 -Total Square (Area) (cm) 50.35 -Tunneling No -Undermining/Tunneling No -Circular Undermining No -Wound/Ulcer Outcome Not Healed -Ulcer Cleansing Rinsed/ Irrigated with Saline -Foul Odor after Cleansing No -Bioengineered Tissue No -Bleeding Controlled with Pressure -Offloading No -Treatment Response Procedure Tolerated Well -Debridement - Muscle / Fascia, 1st Yes 20sq cm -Debridement, Muscle/Fascia, ea addt'l 2 20sq cm or part thereof Pain Scale: 0-10 Numeric Is Patient Pain Free? Yes WC - Nurse 3 - General Ulcer D/C NN Start: 02/22/21 09:45 Freq: Status: Active Protocol: Activity Type Activity Date Activity User E-Sign Co-Sign Detail Recorded Client Recorded Date Recorded By Document 02/22/21 10:32 [facility] [id number] 02/22/21 10:36 [facility] 02/22/21 10:32 Wound Care Nurse 3 #4- L UPPER FOREARM -Ulcer Cleansing Rinsed/ Irrigated with Saline -Foul Odor after Cleansing No -Negative Pressure Wound Therapy N/A -Primary Dressing Applied Promogran Piyush Matter -Primary Dressing Covered/Secured with Dry Gauze, Secured with Tape -Promogran Piyush Matter 1 #1 Right Buttock/Sacral -Ulcer Cleansing Rinsed/ Irrigated with Saline -Foul Odor after Cleansing No -Negative Pressure Wound Therapy N/A -Other Dressing Wet to dry : ABD -Primary Dressing Covered/Secured with Dry Gauze, Secured with Tape WC - Visit Discharge Discharge Condition Stable Ambulatory Status Stretcher Transportation Ambulance Medication Reconcilliation completed & No provided to patient/care provider Clinical Summary of Care Provided Yes Additional Wound Wound debrided: Upper arm ulcer Laterality: Left Wound Grade/Stage: Stage II Type of Debridement: Excisional debridement Anesthesia Used: 4% Lidocaine Solution Depth: Down to and including healthy tissue and in the subcutaneous layer Percentage of wound debrided: 100 Instrument Used: 3mm curette Tissue Removed: Subcutaneous tissue and slough Severity: Fat Layer Exposed Amount of bleeding with debridement: Mild Bleeding Controlled with: Pressure Patient tolerated procedure: Patient tolerated procedure well Assessment/Plan Assessment/Plan (1) Sacral decubitus ulcer, stage IV: CODE(S): L89.154 - Pressure ulcer of sacral region, stage 4 (2) Skin ulcer of upper arm with fat layer exposed: CODE(S): L98.492 - Non-pressure chronic ulcer of skin of other sites with fat layer exposed (3) Osteomyelitis: CODE(S): M86.9 - Osteomyelitis, unspecified QUALIFIERS: Osteomyelitis type: acute hematogenous Osteomyelitis location: other site Qualified Code(s): M86.08 - Acute hematogenous osteomyelitis, other sites (4) Diabetes: CODE(S): E11.9 - Type 2 diabetes mellitus without complications QUALIFIERS: Diabetes mellitus type: due to underlying condition Diabetes mellitus usp insulin use: without usp use Diabetes mellitus complication status: with circulatory complication Diabetes mellitus complication detail: with other circulatory complications Qualified Code(s): E08.59 - Diabetes mellitus due to underlying condition with other circulatory complications (5) Morbid obesity with BMI of 60.0-69.9, adult: CODE(S): E66.01 - Morbid (severe) obesity due to excess calories; Z68.44 - Body mass index [BMI] 60.0-69.9, adult PLAN: Wound care - Sacral ulcer Dakins 0.25% moistened gauze covered with absorptive dressing daily and PRN. Left upper arm ulcer moistened piyush daily. She has Edema +3 bilateral lower extremities. Patient decline any compression at this time. Encouraged increase protein intake to help with wound healing and low carbohydrate diet for blood sugar control. Due to her diabetes she may have delayed wound healing. Patient states she is getting up to the chair daily. Encouraged her to make sure she is off loading off her sacral ulcer while in bed. She is interested in having a muscle flap surgery. I will discuss this with Dr. Miller. I did state that she may not be a candidate due to her inability to off load off of her sacral area for 6 weeks after a flap surgery, in addition to her obesity and other health issues can all contribute to her healing from a surgery for a flap. Follow up 4 weeks.
== END 2021-03-15 23:59 | disposition home or self-care (01) ==
LOC: WC 10:04
PROVIDERS: PCP Internal Medicine; Referring Provider Surgery; Visit Provider Nurse Practitioner Family
DX: E11.621 Type 2 diabetes mellitus with foot ulcer (principal); L89.154 Pressure ulcer of sacral region, stage 4; L98.492 Non-pressure chronic ulcer of skin of other sites with fat layer exposed; M46.28 Osteomyelitis of vertebra, sacral and sacrococcygeal region; M86.08 Acute hematogenous osteomyelitis, other sites; E11.40 Type 2 diabetes mellitus with diabetic neuropathy, unspecified; E66.01 Morbid (severe) obesity due to excess calories; Z68.44 Body mass index [BMI] 60.0-69.9, adult; B96.5 Pseudomonas (aeruginosa) (mallei) (pseudomallei) as the cause of diseases classified elsewhere
CPT/HCPCS: 11042; 11043; 11046

== ENCOUNTER 2021-04-05 09:15 | Outpatient (RCR) | payer MEDICARE, MEDICAID, SELFPAY ==
[2021-03-16 00:20] VITALS: BP 132/88; PULSE 73; RESP 16; TEMP 36.1; BMI 44.6
[2021-03-22 13:13] VITALS: BP 176/71; PULSE 74; BMI 44.6
--- NOTE | 2021-03-22 14:32 | PCM.WC.PN ---
History of Present Illness Date of Service: 03/22/21 Chief Complaint: Right sacral ulcer History of Wound: 65-year-old white obese nonambulatory female with a history of diabetes mellitus came to [facility] because of a right sacral pressure sore. She developed the pressure sore when she fell last year and was not found for almost 20 hours. She had laid on her back and her legs were caught underneath her body. She developed a gangrene left heel that is now healed but has not walked since. Has developed neuropathies and drop foot. CT Pelvis was done on 08/12/20. It showed sacral decubitus ulcer with osteomyelitis of the right sacral ala. A wound culture was done on 07/20/20. It showed Streptococcus agalactiae (B), Staphylococcus capitis, Corynebacterium striatum, Anaerobic cocci, and Bacteroides fragilis. She was treated with Augmentin. Surgery on 10/02/20 where she underwent excision right sacral pressure sore, Stage IV, with partial ostectomy for osteomyelitis. Operative culture of sacral bone was positive for Sphingomonas paucimobilis. Sacral tissue positive for Pseudomonas aeroginosa. While in the hospital she was on Vancomycin and Zosyn but on discharge she was placed on Levaquin. Pathology of sacral bone showed chronic inflammation and reactive changes but was negative for acute osteomyelitis. She was discharged to [facility] on 10/07/20 and upon discharge, her wound care was a wound VAC at 150 mmHg. The [facility] called asking if we could stop the wound VAC because they were having issues with loose stool getting under the wound drape. We stopped the wound VAC. Wound care to sacral ulcer is Dakin's 0.25% moistened gauzed topped with absorptive dressing daily and prn. Left upper arm above antecubital is non healing ulcer moistened Piyush covered with gauze daily. Today she denies fever. Her appetite is ok. Encourage nutritional supplementation with protein to help the healing process. Progress of Wound: Sacral ulcer is beefy pink. No bone exposure. Left anterior upper arm ulcer above antecubital is pink, no improvement compared to last visit. Objective Data Objective Data Vital Signs: Vital Signs Temp Pulse Resp BP 97 F L 74 16 176/71 H 03/16/21 00:20 03/22/21 13:13 03/16/21 00:20 03/22/21 13:13 Weight: 281 lb Body Mass Index (BMI) 44.6 Charges/Coding Addendum Addendum: 46807 left anterior upper arm ulcer Procedures Integumentary 111xxx-113xx: [id number] Liz musc/fascia 20 sq cm/< (Sacral ulcer) Add On Codes: 95267 Liz musc/fascia add-on (x1 sacral ulcer) Physical Exam Const alert HEENT normocephalic Resp normal respiratory effort Cardio regular rate Extremity normal capillary refill General Extremity: edema Skin Wound Narrative: Sacral ulcer is beefy pink. No bone exposure. Left anterior upper arm ulcer above antecubital is pink, no improvement compared to last visit. Neuro CN's II-XII intact bilaterally Psych Thought Process: normal thought process Debridement Note Debridement Note Wound debrided: Sacral ulcer Laterality: Not Applicable Wound Grade/Stage: Stage IV Type of Debridement: Excisional debridement Anesthesia Used: 5% Lidocaine Gel Depth: Down to and including healthy tissue, in the subcutaneous layer and to muscle Percentage of wound debrided: 100 Instrument Used: 7mm curette Tissue Removed: Subcutaneous tissue and slough into the muscle Severity: Fat Layer Exposed Amount of bleeding with debridement: Mild Bleeding Controlled with: Pressure and Compression and gauze Patient tolerated procedure: Patient tolerated procedure well Post-Debridement Measurements and Additional Note: Post-Debridement Measurements/Treatment - Nurse 1 - General Ulcer Assessment Start: 03/22/21 13:13 Freq: Status: Active Protocol: [email or web address] Activity Type Activity Date Activity User E-Sign Co-Sign Detail Recorded Client Recorded Date Recorded By Document 03/22/21 13:13 PA [id number] 03/22/21 13:25 PA 03/22/21 13:13 - Today's Visit Information Type of service Follow-up Visit (Physician/[employer] TECHNOLOGY TECHNICIAN ) Arrival Mode Stretcher Transfer Assist (Other) 4 assist Patient Identification Verified (Name & Yes ) Height and Weight Body Mass Index (BMI) 44.6 BMI Classification Obese Vital Signs Pulse Rate (60-100) 74 Pulse Location Monitor Blood Pressure (90/60-120/80) 176/71 H Blood Pressure Mean (mm Hg) 106 Source Monitor History Since Last Visit- (Skip if this is Patient's initial visit) Have you changed medications since your No last visit? Any new allergies or adverse reactions No Had a fall/change in ADL's that may No increase risk of falls Signs or symptoms of abuse and/or No neglect since last visit Have you been in the hospital since your No last visit? Has dressing in place as prescribed Yes Has compression in place as prescribed N/A Has offloadiing in place as prescribed N/A Experienced any changes in pain level or No management Pain Scale: 0-10 Numeric Is Patient Pain Free? Yes WC - Nurse 1 - General Ulcer Measurement Start: 03/22/21 13:13 Freq: Status: Active Protocol: Activity Type Activity Date Activity User E-Sign Co-Sign Detail Recorded Client Recorded Date Recorded By Document 03/22/21 13:13 MINA [id number] 03/22/21 13:25 AK 03/22/21 13:13 Wound Center Nurse 1 #4- L UPPER FOREARM -Combined with other wound No -Current Size (cm) - Length 1.9 -Current Size (cm) - Width 6.6 -Current Size (cm) - Depth 0.3 -Total Square Cm 12.54 -Photo Taken No -Epithelialization None Present -Tunneling No -Undermining/Tunneling No -Circular Undermining No -Exudate Amt Medium -Exudate Type Serosanguineous -Wound Margin Distinct, Outline Attached -Granulation Amt Medium (34-66%) -Granulation Quality Red -Slough/Fibrin Yes -Necrosis Amt Medium (34-66%) -Necrotic Tissue Type Adherent Slough -Structure Exposed N/A -Texture ([place]-wound Skin Appearance) Assessed, Excoriation -Moisture ([place]-wound Skin Appearance) No Abnormality, Assessed -Color ([place]-wound Skin Appearance) No Abnormality, Assessed -Temperature ([place]-wound Skin No Abnormality Appearance) (Pt Warm) -Tenderness on Palpation ([place]-wound No Skin Appearance) -Ulcer Cleansing Rinsed/ Irrigated with Saline -Anesthetic Used 4% Lidocaine Solution #1 Right Buttock/Sacral -Combined with other wound No -Current Size (cm) - Length 4.4 -Current Size (cm) - Width 6.3 -Current Size (cm) - Depth 0.6 -Total Square Cm 27.72 -Photo Taken No -Epithelialization None Present -Tunneling No -Undermining/Tunneling No -Circular Undermining No -Change in Wound Grade/Stage No -Exudate Amt Medium -Exudate Type Serosanguineous -Granulation Amt Small (1-33%) -Granulation Quality [place],Red -Slough/Fibrin Yes -Necrosis Amt Medium (34-66%) -Necrotic Tissue Type Adherent Slough -Texture ([place]-wound Skin Appearance) No Abnormality, Assessed -Moisture ([place]-wound Skin Appearance) No Abnormality, Assessed -Color ([place]-wound Skin Appearance) No Abnormality, Assessed -Temperature ([place]-wound Skin No Abnormality Appearance) (Pt Warm) -Tenderness on Palpation ([place]-wound No Skin Appearance) -Ulcer Cleansing Soap and Water -Foul Odor after Cleansing No -Anesthetic Used 4% Lidocaine Solution WC - Nurse 2 - General Ulcer CM Notes Start: 03/22/21 13:13 Freq: Status: Active Protocol: Activity Type Activity Date Activity User E-Sign Co-Sign Detail Recorded Client Recorded Date Recorded By Document 03/22/21 13:32 EHSAN [id number] 03/22/21 13:41 EHSAN 03/22/21 13:32 Wound Center Nurse 2 #4- L UPPER FOREARM -Time 13:32 -Correct Patient Yes -Correct Side, Site, Position Yes -Correct Procedure Yes -Procedure Performed Yes -Type of Procedure Debridement -Clinical Debridement Subcutaneous -Tissue Removed Subcutaneous, Muscle -Post Debridement (cm) - Length 1.8 -Post Debridement (cm) - Width 5.9 -Post Debridement (cm) - Depth 0.3 -Total Square (Post) (cm) 10.62 -Area of Debridement (cm) - Length 1.8 -Area of Debridement (cm) - Width 5.9 -Total Square (Area) (cm) 10.62 -Tunneling No -Undermining/Tunneling No -Circular Undermining No -Wound/Ulcer Outcome Not Healed -Ulcer Cleansing Wound Cleanser -Foul Odor after Cleansing No -Bioengineered Tissue No -Bleeding Controlled with Pressure -Offloading No -Treatment Response Procedure Tolerated Well -Debridement - Subq, 1st 20sq cm Yes #1 Right Buttock/Sacral -Time 13:34 -Correct Patient Yes -Correct Side, Site, Position Yes -Correct Procedure Yes -Procedure Performed Yes -Type of Procedure Debridement -Clinical Debridement Muscle / Fascia -Tissue Removed Muscle -Post Debridement (cm) - Length 5 -Post Debridement (cm) - Width 8 -Post Debridement (cm) - Depth 4.5 -Total Square (Post) (cm) 40 -Area of Debridement (cm) - Length 5 -Area of Debridement (cm) - Width 8 -Total Square (Area) (cm) 40 -Tunneling Yes -Tunneling Position (O'clock) 12 -Tunneling Distance (cm) 3.5 -Undermining/Tunneling No -Circular Undermining No -Wound/Ulcer Outcome Not Healed -Ulcer Cleansing Rinsed/ Irrigated with Saline -Foul Odor after Cleansing No -Bioengineered Tissue No -Bleeding Controlled with Pressure -Offloading No -Treatment Response Procedure Tolerated Well -Debridement - Muscle / Fascia, 1st Yes 20sq cm -Debridement, Muscle/Fascia, ea addt'l 1 20sq cm or part thereof Pain Scale: 0-10 Numeric Is Patient Pain Free? Yes - Nurse 3 - General Ulcer D/C NN Start: 03/22/21 13:13 Freq: Status: Active Protocol: Activity Type Activity Date Activity User E-Sign Co-Sign Detail Recorded Client Recorded Date Recorded By Document 03/22/21 13:50 [facility] [id number] 03/22/21 13:50 [facility] 03/22/21 13:50 Wound Care Nurse 3 #4- L UPPER FOREARM -Ulcer Cleansing Rinsed/ Irrigated with Saline -Foul Odor after Cleansing No -Primary Dressing Applied Mepilex Border, Promogran Piyush Matter -Other Covering DRSG PER DL METAL DRILL PRESS OPERATOR -Mepilex Border 1 -Promogran Piyush Matter 1 #1 Right Buttock/Sacral -Ulcer Cleansing Rinsed/ Irrigated with Saline -Foul Odor after Cleansing No -Primary Dressing Applied Other -Other Dressing MOIST TO DRY DRSG PER DL METAL DRILL PRESS OPERATOR -Primary Dressing Covered/Secured with Secured with Tape,Other -Other Covering ABD Treatment Response Procedure Tolerated Well Pain Scale: 0-10 Numeric Is Patient Pain Free? Yes - Visit Discharge Discharge Condition Stable Ambulatory Status Stretcher Transportation Ambulance Facility Type [facility] Additional Wound Wound debrided: anterior upper arm ulcer Laterality: Left Type of Debridement: Excisional debridement Anesthesia Used: 5% Lidocaine Gel Depth: Down to and including healthy tissue and in the subcutaneous layer Percentage of wound debrided: 100 Instrument Used: 3mm curette Tissue Removed: Subcutaneous tissue and slough Severity: Fat Layer Exposed Amount of bleeding with debridement: Mild Bleeding Controlled with: Pressure Patient tolerated procedure: Patient tolerated procedure well Assessment/Plan Assessment/Plan (1) Sacral decubitus ulcer, stage IV: CODE(S): L89.154 - Pressure ulcer of sacral region, stage 4 (2) Skin ulcer of upper arm with fat layer exposed: CODE(S): L98.492 - Non-pressure chronic ulcer of skin of other sites with fat layer exposed (3) Osteomyelitis: CODE(S): M86.9 - Osteomyelitis, unspecified QUALIFIERS: Osteomyelitis type: acute hematogenous Osteomyelitis location: other site Qualified Code(s): M86.08 - Acute hematogenous osteomyelitis, other sites (4) Diabetes: CODE(S): E11.9 - Type 2 diabetes mellitus without complications QUALIFIERS: Diabetes mellitus type: due to underlying condition Diabetes mellitus rat exterminator insulin use: without rat exterminator use Diabetes mellitus complication status: with circulatory complication Diabetes mellitus complication detail: with other circulatory complications Qualified Code(s): 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 Left upper arm ulcer moistened piyush daily. She has Edema +2-+3 bilateral lower extremities. Patient decline any compression at this time. Encouraged increase protein intake to help with wound healing and low carbohydrate diet for blood sugar control. Due to her diabetes she may have delayed wound healing. Patient states she is getting up to the chair daily. Encouraged her to make sure she is off loading off her sacral ulcer while in bed. She is interested in having a muscle flap surgery. I did state that she may not be a candidate due to her inability to off load off of her sacral area for 6 weeks after a flap surgery, in addition to her obesity and other health issues can all contribute to her healing from a surgery for a flap. Concern about the left anterior upper arm ulcer is not healing. It may need a biopsy but with the width of the ulcer, it should be done in the OR. Will have Dr. Miller come and evaluate her at her next visit. Follow up 2 weeks.
[2021-04-05 09:32] VITALS: BP 133/79; PULSE 76; RESP 22; TEMP 36.1; BMI 44.6
--- NOTE | 2021-04-05 14:50 | PN.PCM_ITS ---
History of Present Illness Date of Service: 04/05/21 Chief Complaint: Right sacral pressure sore, Stage IV, and nonhealing ulcer left anterior proximal forearm. History of Wound: Surgery 10/02/20 - Excision right sacral pressure sore, Stage IV, with partial ostectomy for osteomyelitis. Wound care - Dakin's dressing changes for the right sacral pressure sore and Karen dressing changes for the left anterior proximal forearm ulcer. Operative culture 10/02/20 - Sphingomonas paucimobilis in the sacral bone. Pseudomonas aeroginosa. in the soft tissue. While in the hospital she was on Vancomycin and Zosyn but on discharge she was placed on Levaquin and has finished them. Pathology of sacral bone showed chronic inflammation and reactive changes but was negative for acute osteomyelitis. Clinically, was consistent with osteomyelitis. Prealbumin from 10/03/20 was 27.5. Encourage nutritional supplementation with protein to help the healing process. CT Pelvis from 08/12/20 showed a 4 x 5 cm sacral decubitus ulcer superficial to the right sacral ala and the right sacroiliac joint. There is subtle cortical destruction of the posterior aspect of the right sacral ala consistent with osteomyelitis. Today she denies fever. Her appetite is ok. I was asked to evaluate this nonhealing ulcer left anterior proximal forearm that has been there for years according to the patient for surgical options for treatment. Progress of Wound: Sacral pressure sore shows slight improvement with granulation tissue over the bone. Left anterior proximal forearm ulcer is unchanged. Objective Data Objective Data Vital Signs: Vital Signs Temp Pulse Resp BP 96.9 F L 76 22 H 133/79 H 04/05/21 09:32 04/05/21 09:32 04/05/21 09:32 04/05/21 09:32 Weight: 281 lb Body Mass Index (BMI) 44.6 Lab / Micro Data Attestation: I reviewed the patient's lab results. Micro: Microbiology 04/12/21 09:56 Wound Abcess - Leg, Left Gram Stain - Final 04/12/21 09:56 Wound Abcess - Leg, Left Wound Culture - Final No growth aerobically. 04/12/21 09:56 Wound Abcess - Leg, Left Anaerobic Culture - Final Anaerobic cocci Charges/Coding Procedures Integumentary 111xxx-113xx: 46453 Liz musc/fascia 20 sq cm/< (ICD-10 - L98.492, L89.154, M86.9, E11.9, Z86.19, E66.01) 16xxx-193xx: 26940-22 Revise breast reconstruction, Bilateral Add On Codes: 29697 Liz musc/fascia add-on (ICD-10 - L98.492, L89.154, M86.9, E11.9, Z86.19, E66.01) Multi Select Codes Visit Charges Office Visit/Consults: 36457 OV L3 Est (24 Modifier ICD-10 - L98.492, L89,154, M86.9, E11.9, Z86.19, E66.01) Physical Exam Narrative General - Alert and Oriented. HEENT - PERRL. EOMI. Neck - Supple and nontender. No cervical adenopathy. Lungs - Clear to auscultation. Heart - Regular rate and rhythm. Abdomen - Soft and nondistended. Lower back/sacral - Right sacral pressure sore. Granulation tissue present. Bone is palpable. Measures 5 x 8 cm. Stage IV. Extremities - FROM. No axillary adenopathy. Radial pulses are palpable. On the left anterior proximal forearm is a nonhealing ulcer that measures 6 cm including surrounding scar tissue. Ulcer measures 4 x 1 cm. Neuro - CN II-XII grossly intact. Psych - Normal mood and affect. Debridement Note Debridement Note Wound debrided: #1 Right sacral area. Laterality: Right Wound Grade/Stage: IV. Type of Debridement: Excisional debridement Anesthesia Used: 4% Lidocaine Solution Depth: Down to and including healthy tissue, in the subcutaneous layer and to muscle (bone is palpable but not debrided.) Percentage of wound debrided: 100 Instrument Used: 7mm curette Tissue Removed: subcutaneous tissue and muscle. Severity: Fat Layer Exposed (muscle is exposed. bone is palpable but not debrided.) Amount of bleeding with debridement: Mild Bleeding Controlled with: Pressure and Compression and gauze Patient tolerated procedure: Patient tolerated procedure well Post-Debridement Measurements and Additional Note: Post-Debridement Measurements/Treatment WC - Nurse 1 - General Ulcer Assessment Start: 03/22/21 13:13 Freq: Status: Active Protocol: [email or web address] Activity Type Activity Date Activity User E-Sign Co-Sign Detail Recorded Client Recorded Date Recorded By Document 03/22/21 13:13 MN [id number] 03/22/21 13:25 [place] Document 04/05/21 09:32 DL [id number] 04/05/21 09:38 DL 03/22/21 04/05/21 13:13 09:32 WC - Today's Visit Information Type of service Follow-up Visit Follow-up Visit (Physician/[facility] (Physician/[employer] [facility] [facility] ) ) Arrival Mode Stretcher Stretcher Transfer Assistance Manual Transfer Assist (Other) 4 assist x4 Patient Identification Verified (Name & Yes Yes ) Height and Weight Body Mass Index (BMI) 44.6 44.6 BMI Classification Obese Obese Temperature (97.8 F-99.1 F) 96.9 F L Temperature Source Temporal Vital Signs Pulse Rate (60-100) 74 76 Pulse Location Monitor Monitor Respiratory Rate (12-18) 22 H Respiratory rate source Observation Blood Pressure (90/60-120/80) 176/71 H 133/79 H Blood Pressure Mean (mm Hg) 106 97 Source Monitor Monitor History Since Last Visit- (Skip if this is Patient's initial visit) Have you changed medications since your No No last visit? Any new allergies or adverse reactions No No Had a fall/change in ADL's that may No No increase risk of falls Signs or symptoms of abuse and/or No No neglect since last visit Have you been in the hospital since your No No last visit? Has dressing in place as prescribed Yes Yes Has compression in place as prescribed N/A Has offloadiing in place as prescribed N/A Yes Experienced any changes in pain level or No No management Pain Scale: 0-10 Numeric Is Patient Pain Free? Yes Yes - Nurse 1 - General Ulcer Measurement Start: 03/22/21 13:13 Freq: Status: Active Protocol: Activity Type Activity Date Activity User E-Sign Co-Sign Detail Recorded Client Recorded Date Recorded By Document 03/22/21 13:13 AK [id number] 03/22/21 13:25 AK Document 04/05/21 09:32 DL [id number] 04/05/21 09:38 DL 03/22/21 04/05/21 13:13 09:32 Wound Center Nurse 1 #4- L UPPER FOREARM -Combined with other wound No -Current Size (cm) - Length 1.9 4.7 -Current Size (cm) - Width 6.6 1 -Current Size (cm) - Depth 0.3 0.2 -Total Square Cm 12.54 4.7 -Photo Taken No No -Epithelialization None Present -Tunneling No -Undermining/Tunneling No -Circular Undermining No -Exudate Amt Medium Medium -Exudate Type Serosanguineous Serosanguineous -Wound Margin Distinct, Distinct, Outline Outline Attached Attached -Granulation Amt Medium (34-66%) Large (67-100%) -Granulation Quality Red Pale,[place] -Slough/Fibrin Yes -Necrosis Amt Medium (34-66%) Small (1-33%) -Necrotic Tissue Type Adherent Slough Adherent Slough -Structure Exposed N/A N/A -Texture ([place]-wound Skin Appearance) Assessed, Scarring Excoriation -Moisture ([place]-wound Skin Appearance) No Abnormality, No Abnormality Assessed -Color ([place]-wound Skin Appearance) No Abnormality, No Abnormality Assessed -Temperature ([place]-wound Skin No Abnormality No Abnormality Appearance) (Pt Warm) (Pt Warm) -Tenderness on Palpation ([place]-wound No No Skin Appearance) -Ulcer Cleansing Rinsed/ Soap and Water Irrigated with Saline -Anesthetic Used 4% Lidocaine 4% Lidocaine Solution Solution #1 Right Buttock/Sacral -Combined with other wound No -Current Size (cm) - Length 4.4 5 -Current Size (cm) - Width 6.3 7.5 -Current Size (cm) - Depth 0.6 4.7 -Total Square Cm 27.72 37.5 -Photo Taken No No -Epithelialization None Present -Tunneling No -Undermining/Tunneling No -Circular Undermining No -Change in Wound Grade/Stage No -Exudate Amt Medium Medium -Exudate Type Serosanguineous Serosanguineous -Wound Margin Distinct, Outline Attached -Granulation Amt Small (1-33%) Large (67-100%) -Granulation Quality [place],Red Red -Slough/Fibrin Yes -Necrosis Amt Medium (34-66%) Small (1-33%) -Necrotic Tissue Type Adherent Slough Adherent Slough -Structure Exposed N/A -Texture ([place]-wound Skin Appearance) No Abnormality, Scarring Assessed -Moisture ([place]-wound Skin Appearance) No Abnormality, No Abnormality Assessed -Color ([place]-wound Skin Appearance) No Abnormality, No Abnormality Assessed -Temperature ([place]-wound Skin No Abnormality No Abnormality Appearance) (Pt Warm) (Pt Warm) -Tenderness on Palpation ([place]-wound No No Skin Appearance) -Ulcer Cleansing Soap and Water Soap and Water -Foul Odor after Cleansing No No -Anesthetic Used 4% Lidocaine 4% Lidocaine Solution Solution WC - Nurse 2 - General Ulcer CM Notes Start: 03/22/21 13:13 Freq: Status: Active Protocol: Activity Type Activity Date Activity User E-Sign Co-Sign Detail Recorded Client Recorded Date Recorded By Document 03/22/21 13:32 [id number] 03/22/21 13:41 JF Document 04/05/21 10:00 EHSAN [id number] 04/05/21 10:05 Edit Result 04/05/21 10:00 JF (1) [id number] 04/06/21 07:23 PL (1) #1 Right Buttock/Sacral - Debridement, Muscle/Fascia, ea addt'l => 1 20sq cm or part thereof 03/22/21 04/05/21 13:32 10:00 Wound Center Nurse 2 #4- L UPPER FOREARM -Time 13:32 -Correct Patient Yes No -Correct Side, Site, Position Yes No -Correct Procedure Yes No -Procedure Performed Yes No -Type of Procedure Debridement -Clinical Debridement Subcutaneous -Tissue Removed Subcutaneous, Muscle -Post Debridement (cm) - Length 1.8 -Post Debridement (cm) - Width 5.9 -Post Debridement (cm) - Depth 0.3 -Total Square (Post) (cm) 10.62 -Area of Debridement (cm) - Length 1.8 -Area of Debridement (cm) - Width 5.9 -Total Square (Area) (cm) 10.62 -Tunneling No -Undermining/Tunneling No -Circular Undermining No -Wound/Ulcer Outcome Not Healed Not Healed -Ulcer Cleansing Wound Cleanser -Foul Odor after Cleansing No -Bioengineered Tissue No -Bleeding Controlled with Pressure -Treatment Response Procedure Tolerated Well -Offloading No -Debridement - Subq, 1st 20sq cm Yes #1 Right Buttock/Sacral -Time 13:34 10:00 -Correct Patient Yes Yes -Correct Side, Site, Position Yes Yes -Correct Procedure Yes Yes -Procedure Performed Yes Yes -Type of Procedure Debridement Debridement -Clinical Debridement Muscle / Fascia Muscle / Fascia -Tissue Removed Muscle Muscle -Post Debridement (cm) - Length 5 5.0 -Post Debridement (cm) - Width 8 8.0 -Post Debridement (cm) - Depth 4.5 2.2 -Total Square (Post) (cm) 40 40.00 -Area of Debridement (cm) - Length 5 5.0 -Area of Debridement (cm) - Width 8 8.0 -Total Square (Area) (cm) 40 40.00 -Tunneling Yes Yes -Tunneling Position (O'clock) 12 12 -Tunneling Distance (cm) 3.5 3.2 -Undermining/Tunneling No No -Circular Undermining No No -Wound/Ulcer Outcome Not Healed Not Healed -Ulcer Cleansing Rinsed/ Wound Cleanser Irrigated with Saline -Foul Odor after Cleansing No No -Bioengineered Tissue No No -Bleeding Controlled with Pressure Pressure -Treatment Response Procedure Procedure Tolerated Well Tolerated Well -Offloading No No -Debridement - Muscle / Fascia, 1st Yes Yes 20sq cm -Debridement, Muscle/Fascia, ea addt'l 1 1 20sq cm or part thereof -Debridement - Bone, 1st 20sq cm No Pain Scale: 0-10 Numeric Is Patient Pain Free? Yes Yes WC - Nurse 3 - General Ulcer D/C NN Start: 03/22/21 13:13 Freq: Status: Active Protocol: Activity Type Activity Date Activity User E-Sign Co-Sign Detail Recorded Client Recorded Date Recorded By Document 03/22/21 13:50 [facility] [id number] 03/22/21 13:50 [facility] Document 04/05/21 11:12 [facility] [id number] 04/05/21 11:13 [facility] 03/22/21 04/05/21 13:50 11:12 Wound Care Nurse 3 #4- L UPPER FOREARM -Ulcer Cleansing Rinsed/ Rinsed/ Irrigated with Irrigated with Saline Saline -Foul Odor after Cleansing No No -Primary Dressing Applied Mepilex Border, Mepilex Border, Promogran Promogran Karen Matter Karen Matter -Other Covering DRSG PER DL ANSWERER -Mepilex Border 1 1 -Promogran Karen Matter 1 1 #1 Right Buttock/Sacral -Ulcer Cleansing Rinsed/ Rinsed/ Irrigated with Irrigated with Saline Saline -Foul Odor after Cleansing No No -Primary Dressing Applied Other Optilok 6.5x10, Other -Other Dressing MOIST TO DRY moist to dry DRSG PER DL ANSWERER -Primary Dressing Covered/Secured with Secured with Secured with Tape,Other Tape -Other Covering ABD -Optilok 6.5x10 1 Treatment Response Procedure Procedure Tolerated Well Tolerated Well Pain Scale: 0-10 Numeric Is Patient Pain Free? Yes Yes WC - Visit Discharge Discharge Condition Stable Stable Ambulatory Status Stretcher Stretcher Transportation Ambulance Ambulance Facility Type [facility] Facility Additional Wound Wound debrided: #4 Left anterior proximal forearm. Laterality: Left Wound Grade/Stage: 2. Patient tolerated procedure: - (The ulcer was not debrided. It is clinically suspicious for carcinoma and needs to be excised in the operating room.) Assessment/Plan Assessment/Plan (1) Skin ulcer of forearm with fat layer exposed: CODE(S): L98.492 - Non-pressure chronic ulcer of skin of other sites with fat layer exposed (2) Sacral decubitus ulcer, stage IV: CODE(S): L89.154 - Pressure ulcer of sacral region, stage 4 (3) Osteomyelitis: CODE(S): M86.9 - Osteomyelitis, unspecified QUALIFIERS: Osteomyelitis location: other site Osteomyelitis type: acute hematogenous Qualified Code(s): M86.08 - Acute hematogenous osteomyelitis, other sites (4) Diabetes: CODE(S): E11.9 - Type 2 diabetes mellitus without complications QUALIFIERS: Diabetes mellitus complication detail: with other circulatory complications Diabetes mellitus complication status: with circulatory complication Diabetes mellitus joint terminal attack controller insulin use: without joint terminal attack controller use Diabetes mellitus type: due to underlying condition Qualified Code(s): E08.59 - Diabetes mellitus due to underlying condition with other circulatory complications (5) 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 However, it will not heal because of continued pressure since the patient spends most of the day in bed. Before any discussion for wound closure with a muscle flap, further operative excision would need to be done and a positive culture treated with appropriate antibiotics. The last operative culture from 10/02/20 showed Pseudomonas aeroginosa. If persistent, and it is resistant to the perioperative antibiotics, then muscle tissue destruction can occur. If Pseudomonas or MRSA is present, would treat for 6 weeks with antibiotics and then repeat the operative excision before proceeding with a muscle flap. Also a repeat Prealbumin would be necessary to maximize her nutrition before a muscle flap to maximize healing. Also after a muscle flap she would be on bedrest for 6 weeks. Presently, she has a nonhealing ulcer left anterior proximal forearm that she states has been there for several years. The ulcer is clinically suspicious for a carcinoma. Recommend excision of the ulcer and send it to Pathology for analysis to rule out carcinoma. Reconstruction will be with skin grafting. Will excise with a 1 cm margin in all directions. Before surgery, a HgbA1c will be checked. For an elective surgery, the HgbA1c needs to be less than 8. If it is greater than 8, the ulcer will still be excised because it is necessary to rule out carcinoma. The skin graft is e lective and would be postponed until the level is less than 8. Patient was informed of the risks and complications of the procedure including alternatives to surgery. These were discussed with the patient personally. Patient voices understanding and wishes to proceed. Surgery will be done under general anesthesia with a surgical observation overnight stay in the hospital. We discussed the current risks associated with COVID-19. While it is understood that there is a community spread of COVID-19, the risk of selena COVID-19 while at [facility] ([facility]) is very low; however, the risk cannot be completely mitigated because of the community spread of the disease. We discussed in detail the risk of exposure to and/or potential harm posed by the COVID-19 virus with having a surgery/procedure at this time versus the risk of delaying the surgery/procedure. It is not possible to know either the risk of delaying the surgery or procedure or chance of getting an infection with perfect accuracy, but a joint decision was made to proceed at this time with the scheduled surgery/procedure as indicated on the consent form. Patient was notified that we will need to comply with any screening or testing [facility] wishes to perform or that surgery may be delayed for any positive results. Followup for continued treatment of the right sacral pressure sore in one month.
[2021-04-12 17:17] LABS: M R Staph aureus DNA By PCR Negative (Negative); Probe Check PASS; Specimen Processing Control PASS; Staph aureus DNA By PCR NEGATIVE (Negative)
== END 2021-04-12 23:59 | disposition home or self-care (01) ==
LOC: WC 09:15
PROVIDERS: PCP Internal Medicine; Referring Provider Surgery; Visit Provider Nurse Practitioner Family
DX: L89.154 Pressure ulcer of sacral region, stage 4 (principal); L98.492 Non-pressure chronic ulcer of skin of other sites with fat layer exposed; M86.08 Acute hematogenous osteomyelitis, other sites; E08.59 Diabetes mellitus due to underlying condition with other circulatory complications; B96.5 Pseudomonas (aeruginosa) (mallei) (pseudomallei) as the cause of diseases classified elsewhere
CPT/HCPCS: 11042; 11043; 11046; 87070; 87075; 87205; 87640

== ENCOUNTER 2021-05-10 09:27 | Outpatient (RCR) | payer MEDICARE, BC, MEDICAID, SELFPAY ==
[2021-04-13 00:22] VITALS: BP 133/79; PULSE 76; RESP 22; TEMP 36.1; BMI 44.6
[2021-05-10 09:37] VITALS: BP 134/62; PULSE 71; RESP 16; BMI 44.6
--- NOTE | 2021-05-10 12:30 | PCM.WC.PN ---
History of Present Illness Date of Service: 05/10/21 Chief Complaint: Right sacral ulcer History of Wound: 65-year-old white obese nonambulatory female with a history of diabetes mellitus came to [facility] because of a right sacral pressure sore. She developed the pressure sore when she fell last year and was not found for almost 20 hours. She had laid on her back and her legs were caught underneath her body. She developed a gangrene left heel that is now healed but has not walked since. Has developed neuropathies and drop foot. CT Pelvis was done on 08/12/20. It showed sacral decubitus ulcer with osteomyelitis of the right sacral ala. A wound culture was done on 07/20/20. It showed Streptococcus agalactiae (B), Staphylococcus capitis, Corynebacterium striatum, Anaerobic cocci, and Bacteroides fragilis. She was treated with Augmentin. Surgery on 10/02/20 where she underwent excision right sacral pressure sore, Stage IV, with partial ostectomy for osteomyelitis. Operative culture of sacral bone was positive for Sphingomonas paucimobilis. Sacral tissue positive for Pseudomonas aeroginosa. While in the hospital she was on Vancomycin and Zosyn but on discharge she was placed on Levaquin. Pathology of sacral bone showed chronic inflammation and reactive changes but was negative for acute osteomyelitis. She was discharged to [facility] on 10/07/20 and upon discharge, her wound care was a wound VAC at 150 mmHg. The [facility] called asking if we could stop the wound VAC because they were having issues with loose stool getting under the wound drape. We stopped the wound VAC. Wound care to sacral ulcer is Dakin's 0.25% moistened gauzed topped with absorptive dressing daily and prn. Left upper arm above antecubital is non healing ulcer moistened Collagen hydrogel with gauze daily. Today she denies fever. Her appetite is ok. Encourage nutritional supplementation with protein to help the healing process. Progress of Wound: Left upper arm ulcer is pink and stable. Sacral ulcer is beefy pink, no bone exposed. [place] wound is stable. Objective Data Objective Data Vital Signs: Vital Signs Temp Pulse Resp BP 96.9 F L 71 16 134/62 H 04/13/21 00:22 05/10/21 09:37 05/10/21 09:37 05/10/21 09:37 Oxygen Delivery Method Room Air Weight: 281 lb Body Mass Index (BMI) 44.6 Charges/Coding Procedures Integumentary 111xxx-113xx: [id number] Liz musc/fascia 20 sq cm/< Add On Codes: 88454 Liz musc/fascia add-on (x2) Physical Exam Const alert General Appearance: cooperative HEENT normocephalic Head and Scalp: atraumatic Resp normal respiratory effort Cardio regular rate GI non-tender Palpation: soft Extremity normal capillary refill General Extremity: edema bilateral lower extremity Details: severe Skin Wound Narrative: Left upper arm ulcer is pink, stable. No active bleeding. Sacral muscle is beefy pink, no bone exposure. The ulcer is into the muscle. The gaviota wound is stable. Neuro CN's II-XII intact bilaterally Psych Appearance: well kempt Debridement Note Debridement Note Wound debrided: sacral ulcer Laterality: Not Applicable Wound Grade/Stage: Stage IV Type of Debridement: Excisional debridement Anesthesia Used: 5% Lidocaine Gel Depth: Down to and including healthy tissue, in the subcutaneous layer and to muscle Percentage of wound debrided: 100 Instrument Used: 7mm curette Tissue Removed: Nonviable tissue and slough into the muscle. Severity: Fat Layer Exposed Amount of bleeding with debridement: Mild Bleeding Controlled with: Pressure and Compression and gauze Patient tolerated procedure: Patient tolerated procedure well Post-Debridement Measurements and Additional Note: Post-Debridement Measurements/Treatment - Nurse 1 - General Ulcer Assessment Start: 05/10/21 09:36 Freq: Status: Active Protocol: .KENRICK Activity Type Activity Date Activity User E-Sign Co-Sign Detail Recorded Client Recorded Date Recorded By Document 05/10/21 09:37 [facility] [id number] 05/10/21 09:42 [facility] 05/10/21 09:37 - Today's Visit Information Type of service Follow-up Visit (Physician/LOSS CONTROL MANAGER ) Arrival Mode Stretcher Transfer Assistance Manual Transfer Assist (Other) 4 Patient Identification Verified (Name & Yes ) Patient Requires Transmission-Based No Precautions Height and Weight Body Mass Index (BMI) 44.6 BMI Classification Obese Vital Signs Pulse Rate (60-100) 71 Pulse Location Monitor Respiratory Rate (12-18) 16 Respiratory rate source Observation Oxygen Delivery Method Room Air Blood Pressure (90/60-120/80) 134/62 H Blood Pressure Mean (mm Hg) 86 Source Monitor Position Sitting Blood Pressure Location Left Arm History Since Last Visit- (Skip if this is Patient's initial visit) Have you changed medications since your No last visit? Any new allergies or adverse reactions No Had a fall/change in ADL's that may No increase risk of falls Signs or symptoms of abuse and/or No neglect since last visit Have you been in the hospital since your No last visit? Has dressing in place as prescribed Yes Has compression in place as prescribed N/A Has offloadiing in place as prescribed N/A Experienced any changes in pain level or No management Pain Scale: 0-10 Numeric Is Patient Pain Free? Yes WC - Nurse 1 - General Ulcer Measurement Start: 05/10/21 09:36 Freq: Status: Active Protocol: Activity Type Activity Date Activity User E-Sign Co-Sign Detail Recorded Client Recorded Date Recorded By Document 05/10/21 09:37 [facility] [id number] 05/10/21 09:42 [facility] 05/10/21 09:37 Wound Center Nurse 1 #4- L UPPER FOREARM -Combined with other wound No -Current Size (cm) - Length 1.2 -Current Size (cm) - Width 3.3 -Current Size (cm) - Depth 0.3 -Total Square Cm 3.96 -Date of Last Picture (Recall this 05/10/21 field) -Photo Taken Yes -Epithelialization None Present -Tunneling No -Undermining/Tunneling No -Circular Undermining No -Exudate Amt Large -Exudate Type Serosanguineous -Wound Margin Distinct, Outline Attached -Granulation Amt Large (67-100%) -Granulation Quality Red -Slough/Fibrin Yes -Necrosis Amt Small (1-33%) -Necrotic Tissue Type Adherent Slough -Texture (Gaviota-wound Skin Appearance) Assessed, Scarring -Moisture (G[place]-wound Skin Appearance) Assessed -Color ([place]-wound Skin Appearance) Assessed -Temperature ([place]-wound Skin No Abnormality Appearance) (Pt Warm) -Tenderness on Palpation ([place]-wound No Skin Appearance) -Ulcer Cleansing Soap and Water -Foul Odor after Cleansing No -Anesthetic Used 4% Lidocaine Solution #1 Right Buttock/Sacral -Combined with other wound No -Current Size (cm) - Length 3.5 -Current Size (cm) - Width 7.5 -Current Size (cm) - Depth 4.5 -Total Square Cm 26.25 -Date of Last Picture (Recall this 05/10/21 field) -Photo Taken Yes -Epithelialization None Present -Tunneling No -Undermining/Tunneling No -Circular Undermining No -Exudate Amt Medium -Exudate Type Serosanguineous -Wound Margin Distinct, Outline Attached -Granulation Amt Large (67-100%) -Granulation Quality Red -Slough/Fibrin Yes -Necrosis Amt Small (1-33%) -Necrotic Tissue Type Adherent Slough -Texture (Gaviota-wound Skin Appearance) Assessed, Fluctuance -Moisture ([place]-wound Skin Appearance) Assessed -Color ([place]-wound Skin Appearance) Assessed -Temperature ([place]-wound Skin No Abnormality Appearance) (Pt Warm) -Tenderness on Palpation ([place]-wound Yes Skin Appearance) -Ulcer Cleansing Soap and Water -Foul Odor after Cleansing No -Anesthetic Used 4% Lidocaine Solution WC - Nurse 2 - General Ulcer CM Notes Start: 05/10/21 09:36 Freq: Status: Active Protocol: Activity Type Activity Date Activity User E-Sign Co-Sign Detail Recorded Client Recorded Date Recorded By Document 05/10/21 10:06 [facility] [id number] 05/10/21 10:13 [facility] 05/10/21 10:06 Wound Center Nurse 2 #4- L UPPER FOREARM -Correct Patient No -Correct Side, Site, Position No -Correct Procedure No -Procedure Performed No -Wound/Ulcer Outcome Not Healed #1 Right Buttock/Sacral -Time 10:06 -Correct Patient Yes -Correct Side, Site, Position Yes -Correct Procedure Yes -Procedure Performed Yes -Type of Procedure Debridement -Clinical Debridement Muscle / Fascia -Tissue Removed Muscle -Post Debridement (cm) - Length 6 -Post Debridement (cm) - Width 9 -Post Debridement (cm) - Depth 2.3 -Total Square (Post) (cm) 54 -Area of Debridement (cm) - Length 6 -Area of Debridement (cm) - Width 9 -Total Square (Area) (cm) 54 -Tunneling No -Undermining/Tunneling Yes -Undermining/Tunneling Starts (O'clock 12 ) -Undermining/Tunneling Ends (O'clock) 2 -Maximum Distance (cm) 3.4 -Circular Undermining No -Wound/Ulcer Outcome Not Healed -Ulcer Cleansing Rinsed/ Irrigated with Saline -Foul Odor after Cleansing No -Bioengineered Tissue No -Bleeding Controlled with Pressure -Treatment Response Procedure Tolerated Well -Offloading No -Pressure Reduction Specialty bed -Debridement - Muscle / Fascia, 1st Yes 20sq cm -Debridement, Muscle/Fascia, ea addt'l 2 20sq cm or part thereof Pain Scale: 0-10 Numeric Is Patient Pain Free? Yes Additional Wound Wound debrided: Upper arm ulcer-not debrided Laterality: Left Assessment/Plan Assessment/Plan (1) Skin ulcer of upper arm with fat layer exposed: CODE(S): L98.492 - Non-pressure chronic ulcer of skin of other sites with fat layer exposed (2) Sacral decubitus ulcer, stage IV: CODE(S): L89.154 - Pressure ulcer of sacral region, stage 4 (3) Osteomyelitis: CODE(S): M86.9 - Osteomyelitis, unspecified QUALIFIERS: Osteomyelitis type: acute hematogenous Osteomyelitis location: other site Qualified Code(s): M86.08 - Acute hematogenous osteomyelitis, other sites (4) Diabetes: CODE(S): E11.9 - Type 2 diabetes mellitus without complications QUALIFIERS: Diabetes mellitus type: due to underlying condition Diabetes mellitus rn long term care insulin use: without chcf use Diabetes mellitus complication status: with circulatory complication Diabetes mellitus complication detail: with other circulatory complications Qualified Code(s): E08.59 - Diabetes mellitus due to underlying condition with other circulatory complications PLAN: Wound care - Sacral ulcer Aquacel-Ag covered with absorptive dressing daily and PRN. She was complaining of too much discomfort with the Dakin's moistened gauze dressing. Left upper arm ulcer collagen hydrogel covered with gauze daily. She has Edema +3 bilateral lower extremities. Patient decline any compression at this time. Encouraged increase protein intake to help with wound healing and low carbohydrate diet for blood sugar control. Due to her diabetes she may have delayed wound healing. Patient states she is getting up to the chair daily. Encouraged her to make sure she is off loading off her sacral ulcer while in bed. She is interested in having a muscle flap surgery. I did state that she may not be a candidate due to her inability to off load off of her sacral area for 6 weeks after a flap surgery, in addition to her obesity and other health issues can all contribute to her healing from a surgery for a flap. Dr. Miller saw patient and will take her to the OR to biopsy her left upper arm ulcer. Follow up 4 weeks.
== END 2021-05-13 23:59 | disposition home or self-care (01) ==
LOC: WC 09:27
PROVIDERS: PCP Internal Medicine; Referring Provider Surgery; Visit Provider Nurse Practitioner Family
DX: L89.154 Pressure ulcer of sacral region, stage 4 (principal); E08.622 Diabetes mellitus due to underlying condition with other skin ulcer; L98.492 Non-pressure chronic ulcer of skin of other sites with fat layer exposed; M86.08 Acute hematogenous osteomyelitis, other sites; E11.40 Type 2 diabetes mellitus with diabetic neuropathy, unspecified; E08.59 Diabetes mellitus due to underlying condition with other circulatory complications; L89.139 Pressure ulcer of right lower back, unspecified stage; B96.5 Pseudomonas (aeruginosa) (mallei) (pseudomallei) as the cause of diseases classified elsewhere
CPT/HCPCS: 11043; 11046

== ENCOUNTER 2021-06-07 09:32 | Outpatient (RCR) | payer MEDICARE, BC, MEDICAID, SELFPAY ==
[2021-05-14 00:23] VITALS: BP 134/62; PULSE 71; RESP 16; TEMP 36.1; BMI 44.6
[2021-06-07 09:16] VITALS: BP 143/47; PULSE 74; TEMP 36.1; BMI 44.6
--- NOTE | 2021-06-07 10:53 | PCM.WC.PN ---
History of Present Illness Date of Service: 06/07/21 Chief Complaint: Right sacral pressure sore, Stage IV, and nonhealing ulcer left anterior proximal forearm. History of Wound: 65-year-old white obese nonambulatory female with a history of diabetes mellitus came [facility] because of a right sacral pressure sore. She developed the pressure sore when she fell last year and was not found for almost 20 hours. She had laid on her back and her legs were caught underneath her body. She developed a gangrene left heel that is now healed but has not walked since. Has developed neuropathies and drop foot. CT Pelvis was done on 08/12/20. It showed sacral decubitus ulcer with osteomyelitis of the right sacral ala. A wound culture was done on 07/20/20. It showed Streptococcus agalactiae (B), Staphylococcus capitis, Corynebacterium striatum, Anaerobic cocci, and Bacteroides fragilis. She was treated with Augmentin. Surgery on 10/02/20 where she underwent excision right sacral pressure sore, Stage IV, with partial ostectomy for osteomyelitis. Operative culture of sacral bone was positive for Sphingomonas paucimobilis. Sacral tissue positive for Pseudomonas aeroginosa. While in the hospital she was on Vancomycin and Zosyn but on discharge she was placed on Levaquin. Pathology of sacral bone showed chronic inflammation and reactive changes but was negative for acute osteomyelitis. She was discharged to [facility] on 10/07/20 and upon discharge, her wound care was a wound VAC at 150 mmHg. The F called asking if we could stop the wound VAC because they were having issues with loose stool getting under the wound drape. We stopped the wound VAC. Wound care to sacral ulcer is Dakin's 0.25% moistened gauzed topped with absorptive dressing daily and prn. Left upper arm above antecubital is non healing ulcer moistened Collagen hydrogel with gauze daily. Today she denies fever. Her appetite is ok. Encourage nutritional supplementation with protein to help the healing process. Progress of Wound: Sacral pressure sore shows slight improvement with granulation tissue over the bone. It is a nice beefy pink color. [place] wound is stable. Left anterior proximal forearm ulcer is unchanged. It is pink, ulcerated looking with serosanguineous drainage. Objective Data Objective Data Vital Signs: Vital Signs Temp Pulse Resp BP 97.0 F L 74 16 143/47 H 06/07/21 09:16 06/07/21 09:16 05/14/21 00:23 06/07/21 09:16 Weight: 281 lb Body Mass Index (BMI) 44.6 Charges/Coding Procedures Integumentary 111xxx-113xx: 39892 Liz musc/fascia 20 sq cm/< Add On Codes: 41295 Liz musc/fascia add-on Physical Exam Const alert; Negative for oriented x3, no apparent distress or well nourished General Appearance: Negative for cooperative, well developed or lethargic Nutritional Appearance: Negative for cachectic HEENT normocephalic Resp normal respiratory effort Cardio regular rate GI non-tender Palpation: soft Extremity normal capillary refill General Extremity: edema Skin Wound Narrative: Sacral pressure sore shows slight improvement with granulation tissue over the bone. It is a nice beefy pink color. [place] wound is stable. Left anterior proximal forearm ulcer is unchanged. It is pink, ulcerated looking with serosanguineous drainage. Neuro CN's II-XII intact bilaterally Debridement Note Debridement Note Wound debrided: Sacral ulcer Wound Grade/Stage: Stage IV Type of Debridement: Excisional debridement Anesthesia Used: 5% Lidocaine Gel Depth: Down to and including healthy tissue, in the subcutaneous layer and to muscle Percentage of wound debrided: 100 Instrument Used: 7mm curette Tissue Removed: Nonviable tissue and slough into the muscle Severity: Fat Layer Exposed Amount of bleeding with debridement: Mild Bleeding Controlled with: Pressure and Compression and gauze Patient tolerated procedure: Patient tolerated procedure well Post-Debridement Measurements and Additional Note: Post-Debridement Measurements/Treatment - Nurse 1 - General Ulcer Assessment Start: 06/07/21 09:16 Freq: Status: Active Protocol: [email or web address].LOWEXT Activity Type Activity Date Activity User E-Sign Co-Sign Detail Recorded Client Recorded Date Recorded By Document 06/07/21 09:16 CHALO [id number] 06/07/21 09:21 CHALO 06/07/21 09:16 - Today's Visit Information Type of service Follow-up Visit (Physician/SHARED SERVICES MANAGER ) Arrival Mode Stretcher Patient Identification Verified (Name & Yes ) Height and Weight Body Mass Index (BMI) 44.6 BMI Classification Obese Vital Signs Temperature (97.8 F-99.1 F) 97.0 F L Temperature Source Temporal Pulse Rate (60-100) 74 Pulse Location Monitor Blood Pressure (90/60-120/80) 143/47 H Blood Pressure Mean (mm Hg) 79 Source Monitor Position Sitting Blood Pressure Location Right Arm History Since Last Visit- (Skip if this is Patient's initial visit) Have you changed medications since your No last visit? Any new allergies or adverse reactions No Had a fall/change in ADL's that may No increase risk of falls Signs or symptoms of abuse and/or No neglect since last visit Have you been in the hospital since your No last visit? Has dressing in place as prescribed Yes Has compression in place as prescribed N/A Has offloadiing in place as prescribed N/A Pain Scale: 0-10 Numeric Is Patient Pain Free? Yes WC - Nurse 1 - General Ulcer Measurement Start: 06/07/21 09:16 Freq: Status: Active Protocol: Activity Type Activity Date Activity User E-Sign Co-Sign Detail Recorded Client Recorded Date Recorded By Document 06/07/21 09:16 CHALO [id number] 06/07/21 09:21 CHALO 06/07/21 09:16 Wound Center Nurse 1 #4- L UPPER FOREARM -Current Size (cm) - Length 1.3 -Current Size (cm) - Width 5.5 -Current Size (cm) - Depth 0.1 -Total Square Cm 7.15 -Exudate Amt None Present -Wound Margin Distinct, Outline Attached -Necrosis Amt None Present (0 %) -Texture ([place]-wound Skin Appearance) Assessed, Scarring -Moisture ([place]-wound Skin Appearance) Assessed,Dry/ Scaly -Color ([place]-wound Skin Appearance) No Abnormality, Assessed -Temperature ([place]-wound Skin No Abnormality Appearance) (Pt Warm) -Tenderness on Palpation ([place]-wound No Skin Appearance) -Ulcer Cleansing Rinsed/ Irrigated with Saline -Foul Odor after Cleansing No -Anesthetic Used 4% Lidocaine Solution,5% Lidocaine Gel #1 Right Buttock/Sacral -Current Size (cm) - Length 3.5 -Current Size (cm) - Width 6.9 -Current Size (cm) - Depth 3.2 -Total Square Cm 24.15 -Exudate Amt Large -Exudate Type Serosanguineous -Wound Margin Distinct, Outline Attached -Granulation Amt None Present (0 %) -Necrosis Amt Large (67-100%) -Necrotic Tissue Type Adherent Slough -Texture ([place]-wound Skin Appearance) Assessed, Scarring -Moisture ([place]-wound Skin Appearance) No Abnormality, Assessed -Color ([place]-wound Skin Appearance) No Abnormality, Assessed -Temperature ([place]-wound Skin No Abnormality Appearance) (Pt Warm) -Tenderness on Palpation ([place]-wound No Skin Appearance) -Ulcer Cleansing Soap and Water -Foul Odor after Cleansing No -Anesthetic Used 4% Lidocaine Solution,5% Lidocaine Gel - Nurse 2 - General Ulcer CM Notes Start: 06/07/21 09:16 Freq: Status: Active Protocol: Activity Type Activity Date Activity User E-Sign Co-Sign Detail Recorded Client Recorded Date Recorded By Document 06/07/21 09:32 EHSAN [id number] 06/07/21 09:43 EHSAN 06/07/21 09:32 Wound Center Nurse 2 #4- L UPPER FOREARM -Correct Patient No -Correct Side, Site, Position No -Correct Procedure No -Procedure Performed No -Wound/Ulcer Outcome Not Healed #1 Right Buttock/Sacral -Time 09:34 -Correct Patient Yes -Correct Side, Site, Position Yes -Correct Procedure Yes -Procedure Performed Yes -Type of Procedure Debridement -Clinical Debridement Muscle / Fascia -Tissue Removed Muscle -Post Debridement (cm) - Length 3.5 -Post Debridement (cm) - Width 10.0 -Post Debridement (cm) - Depth 2.6 -Total Square (Post) (cm) 35.00 -Area of Debridement (cm) - Length 3.5 -Area of Debridement (cm) - Width 10.0 -Total Square (Area) (cm) 35.00 -Tunneling Yes -Tunneling Position (O'clock) 12 -Tunneling Distance (cm) 2.3 -Undermining/Tunneling No -Circular Undermining No -Wound/Ulcer Outcome Not Healed -Ulcer Cleansing Rinsed/ Irrigated with Saline -Foul Odor after Cleansing No -Bioengineered Tissue No -Bleeding Controlled with Pressure -Treatment Response Procedure Tolerated Well -Offloading No -Debridement - Muscle / Fascia, 1st Yes 20sq cm -Debridement, Muscle/Fascia, ea addt'l 1 20sq cm or part thereof Pain Scale: 0-10 Numeric Is Patient Pain Free? Yes - Nurse 3 - General Ulcer D/C NN Start: 06/07/21 09:16 Freq: Status: Active Protocol: Activity Type Activity Date Activity User E-Sign Co-Sign Detail Recorded Client Recorded Date Recorded By Document 06/07/21 09:47 CHALO [id number] 06/07/21 09:48 CHALO 06/07/21 09:47 Wound Care Nurse 3 #4- L UPPER FOREARM -Ulcer Cleansing Rinsed/ Irrigated with Saline -Primary Dressing Applied C Hydrogel ($) -Primary Dressing Covered/Secured with Dry Gauze, Secured with Tape #1 Right Buttock/Sacral -Ulcer Cleansing Rinsed/ Irrigated with Saline -Other Dressing wet to dry -Primary Dressing Covered/Secured with Dry Gauze, Secured with Tape Pain Scale: 0-10 Numeric Is Patient Pain Free? 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: CODE(S): Z86.19 - Personal history of other infectious and parasitic diseases (4) Status post excisional debridement: CODE(S): Z98.890 - Other specified postprocedural states (5) Diabetes: CODE(S): E11.9 - Type 2 diabetes mellitus without complications QUALIFIERS: Diabetes mellitus type: due to underlying condition 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 Miller on 04/05/21: The right sacral pressure sore is stable and continues to get smaller. However, it will not heal because of continued pressure since the patient spends most of the day in bed. Before any discussion for wound closure with a muscle flap, further operative excision would need to be done and a positive culture treated with appropriate antibiotics. The last operative culture from 10/02/20 showed Pseudomonas aeroginosa. If persistent, and it is resistant to the perioperative antibiotics, then muscle tissue destruction can occur. If Pseudomonas or MRSA is present, would treat for 6 weeks with antibiotics and then repeat the operative excision before proceeding with a muscle flap. Also a repeat Prealbumin would be necessary to maximize her nutrition before a muscle flap to maximize healing. Also after a muscle flap she would be on bedrest for 6 weeks. Presently, she has a nonhealing ulcer left anterior proximal forearm that she states has been there for several years. The ulcer is clinically suspicious for a carcinoma. Recommend excision of the ulcer and send it to Pathology for analysis to rule out carcinoma. Reconstruction will be with skin grafting. Will excise with a 1 cm margin in all directions. Before surgery, a HgbA1c will be checked. For an elective surgery, the HgbA1c needs to be less than 8. If it is greater than 8, the ulcer will still be excised because it is necessary to rule out carcinoma. The skin graft is elective and would be postponed until the level is less than 8. Patient was informed of the risks and complications of the procedure including alternatives to surgery. These were discussed with the patient personally. Patient voices understanding and wishes to proceed. Surgery will be done under general anesthesia with a surgical observation overnight stay in the hospital. Wound care - Sacral ulcer Dakins 0.25% moistened gauze covered with absorptive dressing daily and PRN. Left upper arm ulcer collagen hydrogel covered with gauze daily. She has Edema +3 bilateral lower extremities. Patient decline any compression at this time. Encouraged increase protein intake to help with wound healing and low carbohydrate diet for blood sugar control. Due to her diabetes she may have delayed wound healing. Due to Dr. Miller being on medical leave, I will refer her to general surgery to biopsy/excise the left upper arm ulcer that is suspicious for carcinoma. Follow up 4 weeks
== END 2021-06-12 23:59 | disposition home or self-care (01) ==
LOC: WC 09:32
PROVIDERS: PCP Internal Medicine; Referring Provider Surgery; Visit Provider Nurse Practitioner Family
DX: L89.154 Pressure ulcer of sacral region, stage 4 (principal); E08.622 Diabetes mellitus due to underlying condition with other skin ulcer; L98.492 Non-pressure chronic ulcer of skin of other sites with fat layer exposed; E11.40 Type 2 diabetes mellitus with diabetic neuropathy, unspecified; Z86.19 Personal history of other infectious and parasitic diseases; Z98.890 Other specified postprocedural states
CPT/HCPCS: 11043; 11046